=== PATIENT | male | born 1960 | race Caucasian/White ===

== ENCOUNTER 2016-08-23 12:09 | Day surgery (SDC) | payer MEDICAID ==
[~2016-08-23] VITALS: Ht 190.5 cm; Wt 163.3 kg
--- NOTE | ~2016-08-23 | OP ---
PATIENT NAME: SAMANTHA PAN MEDICAL RECORD: [id number] :56 LOCATION:D.OPS ADMISSION DATE: SURGEON: BETTE NÚÑEZ DO OPERATION DATE: 08/23/16 PROCEDURE: Colonoscopy with polypectomy. INDICATIONS FOR PROCEDURE: Diarrhea and diverticular disease. SCOPE: Olympus video pediatric colonoscope. MEDICATIONS: Propofol 350 milligrams IV per anesthesia. WITHDRAWAL TIME: 15 minutes. ESTIMATED BLOOD LOSS: Minimal. COMPLICATIONS: None. FINDINGS: Informed consent was given. The patient was made comfortable with the above medication. After reaching an adequate level of sedation by slow IV push, the patient was placed on his left side. A digital rectal examination was performed and was normal. The endoscope was then advanced under direct visualization through the rectum to the terminal ileum. The scope was slowly withdrawn, and the mucosa was carefully examined. There was evidence of mild diverticulosis involving the sigmoid colon with a few small mouth diverticula. There were three separate polyps. The first was located in the transverse colon. It measured approximately 5 millimeters in diameter and was benign appearing and sessile. It was removed with hot forceps in one piece and completely retrieved. The other two polyps were located in the descending colon. They measured approximately 5 millimeters in size. They were both benign appearing and sessile and were removed with hot forceps. Retroflexion was performed in the rectum with visualization of small, nonbleeding internal hemorrhoids. The endoscope was then withdrawn from the patient. The patient tolerated the procedure well, and there were no complications. IMPRESSIONS: 1. Three polyps as described above, all removed using hot forceps. 2. Small nonbleeding internal hemorrhoids. 3. Mild diverticulosis of the sigmoid colon. PLAN/RECOMMENDATIONS: 1. Discharge home when recovery parameters are met. 2. High fiber diet. 3. Continue current medications. 4. Recall colonoscopy in five years. 5. Follow up in gastroenterology clinic as needed. In reviewing the notes, it appears that the patient was evaluated in the gastroenterology clinic for diarrhea. He states this has resolved. If this should return he should let the office know so further workup can be made. OPERATIVE REPORT [id number] SAMANTHA PANBETTE MADDOX DO CC: [id number] DICTATION DATE: 08/23/16 1500 ENTRY ANALYST: DM 08/24/16 1223 [facility] SDC 08/23/16 [facility] [address] [place] [address]
[2016-08-23] MEDS ORDERED: PRINIVIL20 MG PO (12:41)
[2016-08-23] MEDS ORDERED: GLYBURIDE2.5 MG PO (12:42)
[2016-08-23] MEDS ORDERED: ZOCOR40 MG PO (12:42)
[2016-08-23] MEDS ORDERED: GLUCOPHAGE500 MG PO (12:42)
[2016-08-23] MEDS ORDERED: FENOFIBRATE160 MG PO (12:43)
[2016-08-23] MEDS ORDERED: LEXAPRO20 MG PO (12:44)
[2016-08-23] MEDS ORDERED: AMOXICILLIN500 M1 (12:45)
[2016-08-23] MEDS ORDERED: BIAXIN 500 MG500 MG PO (12:45)
[2016-08-23] MEDS ORDERED: PANTOPRAZOLE SOD DR (12:46)
[2016-08-23] MEDS ORDERED: SAW PALMETTO450 MG PO (12:47)
[2016-08-23 13:02] VITALS: BP 194/113; Ht 190.5 cm; Wt 163.3 kg
[2016-08-23 13:14] LABS: BASOPHILS 0.3 % (0-2); EOSINOPHILS 0.6 % (0-7); HEMOGLOBIN 13.7 g/dL (13.5-17.5); IMMATURE GRANULOCYTES 0.8 % (0-5); LYMPHOCYTES 22.2 % (15-50); MCH 29.8 pg (26.0-34.0); MCHC 32.6 g/dL (31.0-37.0); MCV 91.5 fL (80.0-100.0); MEAN PLATELET VOLUME 10.6 fL (7.4-10.4); MONOCYTES 6.7 % (2-11); NEUTROPHILS 69.4 % (40-80); PLATELET COUNT 236 10x3/uL (130-400); RBC 4.59 10x6/uL (4.20-6.10); RDW 13.9 % (11.5-14.5); WBC 7.7 10x3/uL (4.8-10.8)
[2016-08-23 13:30] LABS: CALC OSMOLALITY 282 mosm/kg (275-300); CARBON DIOXIDE 28.3 mmol/L (21.0-32.0); CHLORIDE - SERUM 103 mmol/L (98-107); CREATININE - SERUM 0.8 mg/dL (0.6-1.3); GLUCOSE 134 mg/dL (74-106); POTASSIUM - SERUM 3.9 mmol/L (3.5-5.1); SODIUM 141 mmol/L (136-145); UREA NITROGEN 12 mg/dL (7-18); eGFR NON AFRICAN AMERICAN > 90 mL/min (90-120)
--- NOTE | 2016-08-23 15:56 | NUR ---
1545 DISCHARGE INSTRUCTIONS COMPLETE. ESCORTED OUT BY MYSELF.
== END 2016-08-23 15:45 | disposition home or self-care (01) ==
LOC: D.OPS 12:09
PROVIDERS: Anesthesiology
DX: D12.3 Benign neoplasm of transverse colon (principal); D12.4 Benign neoplasm of descending colon; K64.8 Other hemorrhoids; K57.30 Diverticulosis of large intestine without perforation or abscess without bleeding; Z01.812 Encounter for preprocedural laboratory examination

== ENCOUNTER 2016-09-04 10:15 | Day surgery (SDC) | payer MEDICAID ==
[~2016-09-04] VITALS: Ht 190.5 cm; Wt 159.1 kg
--- NOTE | ~2016-09-04 | OP ---
PATIENT NAME: SAMANTHA PAN JR MEDICAL RECORD: [id number] :56 LOCATION:GEROGE ADMISSION DATE: SURGEON: BETTE NÚÑEZ DO DATE OF OPERATION: 09/04/2016 PROCEDURE: EGD with biopsies. INDICATIONS FOR PROCEDURE: Epigastric abdominal pain, heartburn, nausea. SCOPE: Olympus video gastroscope. MEDICATIONS: Propofol 240 mg IV per anesthesia. ESTIMATED BLOOD LOSS: Minimal. COMPLICATIONS: None. FINDINGS: Informed consent was given. The patient was made comfortable with the above medication. After reaching an adequate level of sedation by slow IV push, the patient was placed on his left side. The endoscope was then advanced under direct visualization through the mouth to the second portion of the duodenum. The upper, middle, and lower thirds of the esophagus appeared normal. At the GE junction, there was mild evidence of LA class A reflux induced esophagitis and possible Alicea's esophagus. Biopsies were taken of this site to rule out Alicea's. The span of possible Alicea's is within 1 cm, making a short segment if this is positive. The endoscope was advanced beyond the GE junction into the stomach and retroflexed to view the cardia, where a small sliding hiatal hernia was present. The fundus and body of the stomach appeared normal. In the antrum, there was some erythema and granularity consistent with possible gastritis. Random biopsies were taken to submit for histology and to rule out H. pylori. The endoscope was advanced beyond the pylorus into the duodenum where the bulb and second portion of the duodenum appeared normal. The endoscope was then withdrawn from the patient. The patient tolerated the procedure well and there were no complications. IMPRESSION: 1. LA class A reflux-induced esophagitis. 2. 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 3. Small sliding hiatal hernia. 4. Erythema and granularity of the stomach consistent with possible gastritis, biopsies taken. PLAN AND RECOMMENDATIONS: 1. Discharge home when recovery parameters are met. 2. Follow up biopsy specimen results. 3. GERD diet and reflux precautions. 4. Continue current medications. 5. Trial of traw-nub-sotydyo Nexium 20 mg daily. 6. Follow up in GI clinic as needed. If biopsies do confirm that he has Alicea's esophagus. He will need to be on a PPI indefinitely with a recall upper endoscopy in 2 years' time. TRANSINT:[id number] Voice Confirmation ID: [id number] DOCUMENT ID: [id number] OPERATIVE REPORT [id number] SAMANTHA PAN JR, NATHAN A DO CC: [id number] DICTATION DATE: 09/04/161415 ENGINEER REMOTE CONTROL DIESEL: 09/04/16 2257 [facility] 09/04/16 [place] [id number] [place] [id number]
[~2016-09-04 10:15] MED LIST: AMOXICILLIN500 M1; BIAXIN 500 MG500 MG PO; FENOFIBRATE160 MG PO; GLUCOPHAGE500 MG PO; GLYBURIDE2.5 MG PO; LEXAPRO20 MG PO; PANTOPRAZOLE SOD DR; PRINIVIL20 MG PO; SAW PALMETTO450 MG PO; ZOCOR40 MG PO
[2016-09-04] MEDS ORDERED: COREG 3.1253.125 MG PO (12:09)
[2016-09-04 12:14] VITALS: BP 158/89; Ht 190.5 cm; Wt 159.1 kg
[2016-09-04 12:57] LABS: HEMATOCRIT 41.6 % (42.0-54.0); HEMOGLOBIN 13.5 g/dL (13.5-17.5); MCH 29.7 pg (26.0-34.0); MCHC 32.5 g/dL (31.0-37.0); MCV 91.4 fL (80.0-100.0); MEAN PLATELET VOLUME 10.7 fL (7.4-10.4); RBC 4.55 10x6/uL (4.20-6.10); RDW 13.7 % (11.5-14.5); WBC 7.8 10x3/uL (4.8-10.8)
[2016-09-04 13:07] LABS: CALC OSMOLALITY 285 mosm/kg (275-300); CALCIUM 8.6 mg/dL (8.5-10.1); CARBON DIOXIDE 31.7 mmol/L (21.0-32.0); CHLORIDE - SERUM 104 mmol/L (98-107); CREATININE - SERUM 0.8 mg/dL (0.6-1.3); GLUCOSE 117 mg/dL (74-106); POTASSIUM - SERUM 4.4 mmol/L (3.5-5.1); SODIUM 142 mmol/L (136-145); UREA NITROGEN 17 mg/dL (7-18); eGFR NON AFRICAN AMERICAN > 90 mL/min (90-120)
== END 2016-09-04 16:54 | disposition home or self-care (01) ==
LOC: D.OPS 10:15
PROVIDERS: Anesthesiology
DX: R10.13 Epigastric pain (principal); K21.0 Gastro-esophageal reflux disease with esophagitis; K44.9 Diaphragmatic hernia without obstruction or gangrene; J44.9 Chronic obstructive pulmonary disease, unspecified; G47.30 Sleep apnea, unspecified; I10 Essential (primary) hypertension; E11.9 Type 2 diabetes mellitus without complications; Z01.812 Encounter for preprocedural laboratory examination; E66.01 Morbid (severe) obesity due to excess calories; Z68.41 Body mass index [BMI] 40.0-44.9, adult

== ENCOUNTER → 2017-05-08 11:01 | Outpatient (CLI) | payer MEDICAID ==
[2016-09-04 12:14] VITALS: BMI 43.8
[~2017-05-08 11:01] MED LIST changes: +COREG 3.1253.125 MG PO
== END | disposition home or self-care (01) ==
LOC: D.CATH 04-30 13:00
DX: I48.91 Unspecified atrial fibrillation (principal); Z01.812 Encounter for preprocedural laboratory examination

== ENCOUNTER 2018-04-05 20:58 | Inpatient (IN) | payer MEDICAID ==
[~2018-04-05] VITALS: Ht 190.5 cm; Wt 164.6 kg
[2018-04-05 21:28] LABS: BASOPHILS 0.2 % (0-2); EOSINOPHILS 1.3 % (0-7); HEMATOCRIT 45.4 % (42.0-54.0); HEMOGLOBIN 14.6 g/dL (13.5-17.5); IMMATURE GRANULOCYTES 0.4 % (0-5); LYMPHOCYTES 19.2 % (15-50); MCH 29.4 pg (26.0-34.0); MCHC 32.2 g/dL (31.0-37.0); MCV 91.5 fL (80.0-100.0); MEAN PLATELET VOLUME 10.7 fL (7.4-10.4); MONOCYTES 7.8 % (2-11); NEUTROPHILS 71.1 % (40-80); PLATELET COUNT 254 10x3/uL (130-400); RBC 4.96 10x6/uL (4.20-6.10); WBC 15.2 10x3/uL (4.8-10.8)
[2018-04-05 21:29] LABS: COLOR YELLOW (YELLOW)
[2018-04-05 21:30] LABS: APPEARANCE CLEAR (CLEAR); BILIRUBIN NEGATIVE (NEGATIVE); GLUCOSE NEGATIVE (NEGATIVE); KETONE NEGATIVE (NEGATIVE); NITRITE NEGATIVE (NEGATIVE); PROTEIN 2+ mg/dL (NEGATIVE); SPECIFIC GRAVITY 1.015 (1.005-1.020); UROBILINOGEN NORMAL (NORMAL)
[2018-04-05 21:32] LABS: BACTERIA FEW /hpf (NONE SEEN); EPITHELIAL CELLS 0-5 /hpf (0-5); MUCUS >1+ /lpf (NONE SEEN); RED CELLS - URINE 0-5 /hpf (0-5); WHITE CELLS - URINE 0-5 /hpf (0-5)
[2018-04-05 21:40] LABS: ALBUMIN 3.6 g/dL (3.4-5.0); ALKALINE PHOSPHATASE 93 U/L (46-116); ALT (SGPT) 25 U/L (10-68); CALC OSMOLALITY 288 mosm/kg (275-300); CALCIUM 9.1 mg/dL (8.5-10.1); CARBON DIOXIDE 31.2 mmol/L (21.0-32.0); CHLORIDE - SERUM 104 mmol/L (98-107); CREATININE - SERUM 0.8 mg/dL (0.6-1.3); GLUCOSE 118 mg/dL (74-106); POTASSIUM - SERUM 4.3 mmol/L (3.5-5.1); PROTEIN - SERUM 7.6 g/dL (6.4-8.2); SODIUM 144 mmol/L (136-145); UREA NITROGEN 16 mg/dL (7-18); eGFR NON AFRICAN AMERICAN > 90 mL/min (90-120)
[2018-04-05 21:43] LABS: AMYLASE - SERUM 35 U/L (25-115); LIPASE 182 U/L (73-393); TROPONIN-I < 0.017 ng/mL (0.000-0.060)
--- NOTE | 2018-04-05 22:25 | NUR ---
PT RETURNED FROM CT ACTIVELY VOMITING. NOTIFIED EDP PHILLY AND REEQUESTED MORE ANTI-EMETIC. VERBAL ORDER FOR 10MG COMPAZINE GIVEN
--- NOTE | 2018-04-05 22:47 | NUR ---
PT STATES HE IS NO LONGER NAUSEATED. DENIES ANY FURTHER NEEDS AT PRESENT
[2018-04-06] VITALS: BP 156/81
[2018-04-06 01:40] VITALS: BP 154/113; BMI 45.4
--- NOTE | 2018-04-06 01:47 | NUR ---
REPORT CALLED TO THIS NURSE BY CA IN ER AT 0010. ARRIVED TO FLOOR AT 0023 IN W/C. ASSESMENT COMPLETED. DENIES ANY PAIN OR NEEDS. TELEMETRY IN PLACE. IV TO RIGHT AND LEFT AC. DENIES ANY NEEDS AT THIS TIME.
--- NOTE | 2018-04-06 05:24 | NUR ---
PT BECAME DIAPHORETIC AND NAUSEATED. ZOFRAN GIVEN. CALLED DR. JORDAN AND EXPLAINED THIS PT HAD COME IN WITH A-FIB WITH RVR. CAME OUT OF RVR AND IS NOW A-FLUTTER, NAUSEATED AND DIAPHORETIC. ASKED WHAT HR WAS AND THEN SAID NO CONSULT. PT STATES HE HAS A METAL PLATE IN HIS HEAD AND SOMETIMES IT CAN MAKE HIM SICK. WILL CONT TO OBSERVED. REMAINS ON TELEMETRY. ALSO HAS LARGE HERNIA ABOVE HIS UMBILICAL AREA.
[2018-04-06 05:34] LABS: BASOPHILS 0.2 % (0-2); EOSINOPHILS 1.1 % (0-7); HEMATOCRIT 43.5 % (42.0-54.0); HEMOGLOBIN 13.9 g/dL (13.5-17.5); IMMATURE GRANULOCYTES 0.4 % (0-5); LYMPHOCYTES 16.8 % (15-50); MCV 90.8 fL (80.0-100.0); MEAN PLATELET VOLUME 10.5 fL (7.4-10.4); MONOCYTES 7.3 % (2-11); NEUTROPHILS 74.2 % (40-80); PLATELET COUNT 222 10x3/uL (130-400); RBC 4.79 10x6/uL (4.20-6.10); WBC 12.9 10x3/uL (4.8-10.8)
[2018-04-06 05:59] LABS: ALBUMIN 3.3 g/dL (3.4-5.0); ALKALINE PHOSPHATASE 90 U/L (46-116); BILIRUBIN - TOTAL 0.86 mg/dL (0.2-1.3); CALCIUM 8.6 mg/dL (8.5-10.1); CARBON DIOXIDE 27.7 mmol/L (21.0-32.0); CHLORIDE - SERUM 103 mmol/L (98-107); CREATININE - SERUM 0.7 mg/dL (0.6-1.3); POTASSIUM - SERUM 3.8 mmol/L (3.5-5.1); PROTEIN - SERUM 6.9 g/dL (6.4-8.2); SODIUM 140 mmol/L (136-145); UREA NITROGEN 13 mg/dL (7-18); eGFR NON AFRICAN AMERICAN > 90 mL/min (90-120)
[2018-04-06 06:08] LABS: ALT (SGPT) 15 U/L (10-68); CALC OSMOLALITY 283 mosm/kg (275-300); GLUCOSE 190 mg/dL (74-106)
--- NOTE | 2018-04-06 07:10 | NUR ---
REPORT RECIEVED FROM BULB PLANTER. PATIENT LAYING IN BED AWAKE ALERT AND ORIENTED X 4. PATIENT IS STABLE AND VS ARE GOOD. PATIENT DENIES ANY NEEDS OR PAIN. WILL CONTINUE WITH PLAN OF CARE.
[2018-04-06 08:35] VITALS: BP 154/98
--- NOTE | 2018-04-06 10:07 | NUR ---
PATIENT SITTING UP WATCHING TV. PATIENT IS NPO AWAITNG CONSULT. ASSESSMENT COMPLETED. WILL CONTINUE TO MONITOR.
--- NOTE | 2018-04-06 11:00 | NUR ---
PATIENT SEEN BY DR FRANCISCO AND DR BAINS. NEW ORDERS RECEIVED. PATIENT IS STABLE AND VSS. WILL CONTINUE TO MONIOTR.
[2018-04-06 11:54] VITALS: BP 162/95
[2018-04-06 12:17] VITALS: BMI 45.3
[2018-04-06 12:48] VITALS: Ht 190.5 cm; Wt 164.6 kg
[2018-04-06 16:46] VITALS: BP 187/103
[2018-04-06] MEDS ORDERED: CARDIZEM CD180 MG PO (18:10)
--- NOTE | 2018-04-08 09:46 | MORECARE ---
CASE MANAGEMENT DISCHARGE SUMMARY PATIENT: SAMANTHA PAN JR UNIT: [id number] ADM DATE: 04/05/18 AGE: 58 : 56 SEX: M ROOM/BED: D.2119 AUTHOR: DIAZ GRANGER PHYSICIAN: REFERRING PHYSICIAN: HARVEY JORDAN MD DATE OF SERVICE: 04/08/18 Discharge Plan Patient Name: [facility]ANTHA PAN [facility] : 1960 Planned Disposition: Home Anticipated Discharge Date: 04/06/18 Discharge Date: 04/06/2018 Expected LOS: 1 Initial Reviewer: [email or web address] Initial Review Date: 04/08/2018 Generated: 04/08/18 10:46 am Patient Name: SAMANTHA PAN Page 22019 at 0946 All edits/amendments must be made on the electronic document DICTATION DATE: 04/08/18944 ENGINEERING TECHNOLOGIST: DM 04/08/18944 RPT#: [id number] DC DATE:04/06/18 STATUS: DIS IN [facility] [address] [place] [address] END OF REPORT
== END 2018-04-06 19:06 | disposition home or self-care (01) | DRG 394 ==
LOC: D.ER 20:58 → D.EDHOLD 23:39 → D.M2 23:39
PROVIDERS: Family Medicine; ADMIT Internal Medicine Nephrology; ATTEND Internal Medicine Nephrology
DX: K43.9 Ventral hernia without obstruction or gangrene (principal); F17.213 Nicotine dependence, cigarettes, with withdrawal; Z68.42 Body mass index [BMI] 45.0-49.9, adult; I48.91 Unspecified atrial fibrillation; I10 Essential (primary) hypertension; E78.5 Hyperlipidemia, unspecified; E11.9 Type 2 diabetes mellitus without complications; G47.33 Obstructive sleep apnea (adult) (pediatric); N40.0 Benign prostatic hyperplasia without lower urinary tract symptoms; E66.01 Morbid (severe) obesity due to excess calories

== ENCOUNTER 2018-07-11 07:38 | Day surgery (SDC) | payer MEDICAID ==
[~2018-07-11] VITALS: Ht 190.5 cm; Wt 163.3 kg
[~2018-07-11 07:38] MED LIST changes: +BETAPACE 120 M120 MG PO; +CARDIZEM CD180 MG PO; +METOPROLOL TART25 MG PO; +XARELTO20 MG PO
[2018-07-11 08:10] LABS: BASOPHILS 0.2 % (0-2); EOSINOPHILS 1.1 % (0-7); HEMATOCRIT 40.5 % (42.0-54.0); HEMOGLOBIN 13.1 g/dL (13.5-17.5); IMMATURE GRANULOCYTES 0.8 % (0-5); LYMPHOCYTES 20.2 % (15-50); MCH 29.5 pg (26.0-34.0); MCHC 32.3 g/dL (31.0-37.0); MCV 91.2 fL (80.0-100.0); MEAN PLATELET VOLUME 10.1 fL (7.4-10.4); NEUTROPHILS 71.7 % (40-80); PLATELET COUNT 211 10x3/uL (130-400); RBC 4.44 10x6/uL (4.20-6.10); RDW 14.5 % (11.5-14.5); WBC 8.5 10x3/uL (4.8-10.8)
[2018-07-11 08:20] LABS: CALC OSMOLALITY 294 mosm/kg (275-300); CALCIUM 9.4 mg/dL (8.5-10.1); CARBON DIOXIDE 31.8 mmol/L (21.0-32.0); CHLORIDE - SERUM 104 mmol/L (98-107); CREATININE - SERUM 0.9 mg/dL (0.6-1.3); GLUCOSE 201 mg/dL (74-106); POTASSIUM - SERUM 4.3 mmol/L (3.5-5.1); SODIUM 143 mmol/L (136-145); UREA NITROGEN 23 mg/dL (7-18); eGFR NON AFRICAN AMERICAN > 90 mL/min (90-120)
[2018-07-11 09:07] VITALS: BP 147/100; BMI 45.0
[2018-07-11] MEDS ORDERED: HYDROCODON-ACE1 EA10 PO (11:37)
[2018-07-11] MEDS ORDERED: CYCLOBENZAPRINE10 MG PO (11:38)
[2018-07-11 21:16] VITALS: BP 169/95
[2018-07-11 22:12] VITALS: BP 169/95; BMI 45.0
[2018-07-12 00:26] VITALS: BP 174/84
--- NOTE | 2018-07-12 01:30 | NUR ---
RESTING IN BED UP AT [facility] CALL LIGHT IN REACH NO NEEDS NOTED OR STATED.
[2018-07-12 05:12] VITALS: BP 151/100
--- NOTE | 2018-07-12 08:10 | NUR ---
1150 REVEIVED FROM PACU WITH VSS. DROWSY. 1230 C/O NAUSEA. ON TOILET. UNABLE TO VOID.
--- NOTE | 2018-07-12 08:12 | NUR ---
1900 PT TRANSFERRED TO 2201 IN STABLE CONDITION. ADMITTED FOR OBSERVATION DUE TO NAUSEA, PAIN, AND NO CAREGIVER AT HOME.
[2018-07-12 08:58] VITALS: BP 180/21
--- NOTE | 2018-07-12 10:09 | OP ---
PATIENT NAME: SAMANTHA PAN JR MEDICAL RECORD: [id number] :56 LOCATION:D.MS [id number] ADMISSION DATE: SURGEON: GEETHA FRANCISCO MD DATE OF OPERATION: 07/11/2018 PREOPERATIVE DIAGNOSES: 1. Ventral hernia. 2. Atrial fibrillation. 3. Hypertension. 4. Diabetes mellitus. 5. Morbid obesity with a BMI of 45. POSTOPERATIVE DIAGNOSES: 1. Ventral hernia. 2. Atrial fibrillation. 3. Hypertension. 4. Diabetes mellitus. 5. Morbid obesity with a BMI of 45. PROCEDURE: Ventral hernia repair with 8 cm Ventralex mesh. SURGEON: Geetha Francisco MD REPORT OF PROCEDURE: The patient's abdomen was prepped and draped in sterile fashion. A midline incision was made just above the umbilicus overlying the hernia defect. Electrocautery was used to dissect through the subcutaneous tissues. We entered the hernia sac and found omental tissue present. This omentum was adherent to the side owen. We performed a tedious dissection of the omentum out of the hernia sac and eventually just ligated the omentum and tied it off with 2-0 silks. Once we did this, I got it freed up from the hernia sac and then the hernia sac was excised and taken down to the fascial edges. The fascial defect was noted to be about 5 cm in greatest diameter. We freed the fatty tissue off of the fascia anteriorly and then bluntly took down the preperitoneal fatty tissue off of the posterior aspect of the abdominal wall. The patient had a small umbilical hernia present as well that was less than a centimeter in size. We placed an 8 cm Ventralex mesh in an underlay fashion and sutured this down on all 4 sides using multiple interrupted 0 Prolene. We attempted to make sure that the umbilical hernia defect was covered with the mesh as well. We then irrigated out the wound thoroughly with normal saline. The fascia was then closed transversely with running #1 PDS times 2. The wound was inspected and there was no sign of any active bleeding. At this point, the subcutaneous tissues were all reapproximated with multiple interrupted 3-0 Vicryl and the skin was closed with running subcutaneous 5-0 Monocryl. A 10 mL of 0.25% Marcaine with epinephrine were infused into the surrounding tissues and the wounds were dressed appropriately. COMPLICATIONS: None. CONDITION: Stable. ANESTHESIA: General endotracheal and local. BLOOD LOSS: 100 mL. TRANSINT:[id number] Voice Confirmation ID: [id number] DOCUMENT ID: [id number] OPERATIVE REPORT [id number] SAMANTHA PAN JR, CHRISTIAN MD at 1009 CC: YVETTE JEONG MD [id number] DICTATION DATE: 07/11/18 1148 LEAD QUALITY TECHNICIAN: 07/11/18 1440 [place] [id number] [place] [id number]
[2018-07-12 12:52] VITALS: Ht 190.5 cm; Wt 163.3 kg
--- NOTE | 2018-07-12 12:56 | NUR ---
IV REMOVED WITH NO REDNESS OR EDEMA AT SITE. DRESSING TO ABD CHANGED WITH EXTRA DRESSINGS SENT WITH PATIENTS. DISCHARGE INSTRUCTIONS GIVEN TO PATIENT ALONG WITH PRESCRIPTION FOR [place], PATIENT VOICED UNDERSTANDING OF DISCHARGE INSTRUCTIONS. CL IN REACH
== END 2018-07-12 13:03 | disposition home or self-care (01) ==
LOC: D.OPS 07:38 → D.PAN 12:30 → D.MS 18:53 → D.OPS 07-12 13:03
PROVIDERS: ATTEND Surgery
DX: K43.9 Ventral hernia without obstruction or gangrene (principal); I48.91 Unspecified atrial fibrillation; I10 Essential (primary) hypertension; E11.9 Type 2 diabetes mellitus without complications; E66.01 Morbid (severe) obesity due to excess calories

== ENCOUNTER 2019-02-24 11:13 | Inpatient (IN) | payer MEDICAID ==
[2019-02-24] VITALS (13 sets, daily range): BP systolic 98–187; BP diastolic 54–92; BMI 50.7
[~2019-02-24] VITALS: Ht 190.5 cm; Wt 178.8 kg
--- NOTE | ~2019-02-24 | EC ---
PATIENT:SAMANTHA PAN JR DATE OF SERVICE: 02/24/19 SEX: M MEDICAL RECORD: [id number] DATE OF : 56 LOCATION:D.MS [facility]222 AGE OF PATIENT: 58 ADMISSION DATE: 02/24/19 REFERRING PHYSICIAN: INTERPRETING PHYSICIAN: RAPHAEL ALDRICH MD ECHOCARDIOGRAM REPORT ECHO CHARGES 4 ECHO COMPLETE Date: 03/07/19 CLINICAL DIAGNOSIS: LVF ECHOCARDIOGRAPHIC MEASUREMENTS (adult normal given) AC root (d.<3.7cm) 3.2 cm LV Septum d (<1.2 cm> 1.6 cm Valve Excursion 2.2 cm LV Septum (systole) 1.8 cm Left Atria (s.<4.0cm> 4.3 cm LVPW d(<1.2cm) 1.1 cm RV (d.<2.3cm) 4.4 cm LVPW (sytole) 1.2 cm LV diastole(<5.6CM) 4.5 cm MV E-F(>70mm/sec) cm LV systole 3.3 cm LVOT Diameter 2.3 cm MV exc.(>10mm) cm Est.ejection fraction (50-75%) % DOPPLER: LVIT cm/sec A 36 cm/sec E 50 cm/sec LA cm/sec RVSP 23.2 mmHg LVOT 100 cm/sec AOP1/2T m/s Asc. Ao 118 cm/sec RVOT 91 cm/sec RA cm/sec PA 78 cm/sec AV Gradient Peak 5.6 mmHg AV Mean 3.2 mmHg AV Area 3.6 cm MV Gradient Peak 2.5 mmHg MV Mean 1.1 mmHg MV Area cm COMMENTS: Stock Selector: Pedro [facility] Preform Plate Maker: 1 Dr. Aldrich TAPE# PACS Pericardial Effusion N DATE OF SERVICE: 03/08/2019 FINDINGS: 1. Left ventricular chamber size is within normal limits. Left ventricular systolic function is normal. Overall ejection fraction estimated at 55% to 60%. 2. Left atrium is enlarged at 4.3 cm. Right atrium and right ventricular chamber sizes are mildly dilated. 3. Valvular structures have normal structure and motion. 4. Doppler interrogation reveals only trace tricuspid regurgitation, no other valvular insufficiency or stenosis. Pulmonary systolic pressure estimated at 25 ECHOCARDIOGRAM REPORT [id number] SAMANTHA PAN JR mmHg. 5. No evidence of pericardial effusion or left ventricular thrombus. TRANSINT:[id number] Voice Confirmation ID: [id number] DOCUMENT ID: [id number] RAPHAEL ALDRICH MD CC: [id number] DICTATION DATE: 03/09/19 1203 AUTOMATIC GRINDER OPERATOR: 03/09/19 1722 DIS IN 03/08/19 [facility] [address] [place] [id number]
[~2019-02-24 11:13] MED LIST changes: +CYCLOBENZAPRINE10 MG PO; +HYDROCODON-ACE1 EA10 PO
[2019-02-24 11:38] LABS: CALC OSMOLALITY 298 mosm/kg (275-300); CALCIUM 8.7 mg/dL (8.5-10.1); CARBON DIOXIDE 39.8 mmol/L (21.0-32.0); CHLORIDE - SERUM 103 mmol/L (98-107); CREATININE - SERUM 0.9 mg/dL (0.6-1.3); POTASSIUM - SERUM 4.9 mmol/L (3.5-5.1); SODIUM 142 mmol/L (136-145); UREA NITROGEN 28 mg/dL (7-18); eGFR NON AFRICAN AMERICAN > 90 mL/min (90-120)
[2019-02-24 11:39] LABS: GLUCOSE 272 mg/dL (74-106)
[2019-02-24 11:41] LABS: BASOPHILS 0.2 % (0-2); EOSINOPHILS 0.5 % (0-7); HEMATOCRIT 45.8 % (42.0-54.0); HEMOGLOBIN 13.8 g/dL (13.5-17.5); IMMATURE GRANULOCYTES 0.9 % (0-5); MCH 29.2 pg (26.0-34.0); MCHC 30.1 g/dL (31.0-37.0); MEAN PLATELET VOLUME 10.5 fL (7.4-10.4); MONOCYTES 4.9 % (2-11); NEUTROPHILS 80.5 % (40-80); RBC 4.72 10x6/uL (4.20-6.10); RDW 14.7 % (11.5-14.5); WBC 17.2 10x3/uL (4.8-10.8)
[2019-02-24 11:43] LABS: PLATELET COUNT 296 10x3/uL (130-400)
[2019-02-24 11:46] LABS: APTT 25.8 SECONDS (22.8-39.4); INR 1.04 (0.85-1.17); PROTIME 13.5 SECONDS (11.6-15.0)
[2019-02-24 11:56] LABS: ALBUMIN 3.2 g/dL (3.4-5.0); ALKALINE PHOSPHATASE 92 U/L (46-116); ALT (SGPT) 44 U/L (10-68); BILIRUBIN - TOTAL 0.31 mg/dL (0.2-1.3); CKMB 3.1 U/L (0.0-3.6); CREATINE KINASE 54 UL (21-232); PRO BNP 457 pg/mL (0-125); PROTEIN - SERUM 7.5 g/dL (6.4-8.2)
[2019-02-24 11:59] LABS: TROPONIN-I < 0.017 ng/mL (0.000-0.060)
--- NOTE | 2019-02-24 12:00 | NUR ---
PATIENT IS VERY ANXIOUS, IS WANTING TO GET UP, STATES "I NEED TO GO PEE". CONSISTANTLY ENCOURAGING HIM TO STAY IN THE BED, NOT ABLE TO LEAVE PATIENT, MD NOTIFIED, NEW ORDER GIVEN.
--- NOTE | 2019-02-24 12:30 | NUR ---
FRIEND TO BEDSIDE, PATIENT RESTING QUIETLY AT THIS TIME.
--- NOTE | 2019-02-24 12:47 | NUR ---
PERSONAL BELONGINGS GIVEN TO SARAHY NAYLOR HIS FRIEND
--- NOTE | 2019-02-24 13:57 | NUR ---
PATIENT ON BIPAP, RESTING QUIETLY AT THIS TIME.
--- NOTE | 2019-02-24 14:31 | MORECARE ---
CASE MANAGEMENT DISCHARGE SUMMARY PATIENT: SAMANTHA PAN JR UNIT: [id number] ADM DATE: 02/24/19 AGE: 58 : 56 SEX: M ROOM/BED: D.2305 AUTHOR: DIAZ GRANGER PHYSICIAN: REFERRING PHYSICIAN: CHENTE CADENA DO DATE OF SERVICE: 02/24/19 Discharge Plan Patient Name: SAMANTHA PAN [facility] [facility] 1960 Planned Disposition: Home Health Service Anticipated Discharge Date: 02/27/19 Discharge Date: Expected LOS: 3 Initial Reviewer: [email or web address] Initial Review Date: 02/24/2019 Generated: 02/24/19 3:30 pm DCPIA - Discharge Planning Initial Assessment Updated by [email or web address]: Geovanna Goldberg on 02/24/19 2:30 pm * Is the patient Alert and Oriented? No * How many steps to enter\exit or inside your home? elevator * PCP Dr. Urbina * Pharmacy [facility] on [address] * Preadmission Environment Home Alone * ADLs Independent * Equipment Cane CPAP Rolling Walker Wheelchair * List name and contact numbers for known caregivers / representatives who currently or will assist patient after discharge: Watson Wilner - [place] - [phone] * Verbal permission to speak to the caregivers and representatives has been obtained from the patient. Yes * Community resources currently utilized Other * Please name any agencies selected above. has a house keeper that was coming 4 x week that gets his groceries for him. * Additional services required to return to the preadmission environment? Yes * Can the patient safely return to the preadmission environment? Yes * Has this patient been hospitalized within the prior 30 days at any hospital? No Patient Name: SAMANTHA PAN Page 13674 at 1431 All edits/amendments must be made on the electronic document DICTATION DATE: 02/24/19 143 TANK OFFICER: GILMA 02/24/19 1430 RPT#: [id number] DC DATE: STATUS: ADM IN [facility] [address] [place] [address] END OF REPORT
--- NOTE | 2019-02-24 14:39 | NUR ---
PT RECEIVED FROM ER. VSS. PLACED ON BIPAP RT AT BEDSIDE WILL CONTINUE TO MONITOR
--- NOTE | 2019-02-24 14:39 | MORECARE ---
CASE MANAGEMENT DISCHARGE SUMMARY PATIENT: SAMANTHA PAN JR UNIT: [id number] ADM DATE: 02/24/19 AGE: 58 : 56 SEX: M ROOM/BED: D.2305 AUTHOR: ELKIN,DOC PHYSICIAN: REFERRING PHYSICIAN: CHENTE CADENA DO DATE OF SERVICE: 02/24/19 Discharge Plan Patient Name: SAMANTHA PAN Facility[facility]:[place] : 1960 Planned Disposition: Home Health Service Anticipated Discharge Date: 02/27/19 Discharge Date: Expected LOS: 3 Initial Reviewer: [email or web address] Initial Review Date: 02/24/2019 Generated: 02/24/19 3:38 pm DCP- Discharge Planning Updated by [email or web address]: Geovanna Goldberg on 02/24/19 1:[address] DC PLAN: Rehab vs home health ANTICIPATED DC NEEDS: may need rehab or hh according to Watson (Friend) CM met with patient to complete initial dc planning assessment. He was on CPAP and confused, unable to answer questions at this time. CM contacted contact on facesheet Watson Darby, , who gave consent to complete assessment. CM verified patient's address, phone number, and emergency contact phone numbers. Patient lives at [facility] alone, and has been doing well on his own unitl the past few days. He lives alone. He does have a house keeper that was coming 4x week to assist with grocery shopping and house cleaning. Watson is not sure she still comes 4x week. Watson reports the patient has become increasingly weak and requiring more assistance. Watson drove him to his doctors appointment today in [place] and his PCP called an ambulance to bring him to the ER. CM discussed availability of home health, rehab services, and medical equipment. Watson feels that he will need assistance at dc rehab or home health. Patient unable at this time to sign SAMEER or even agree to assistance at dc. Transportation provider at discharge will be Watson if he is able to dc home. CM will continue to follow and will assist as needed with dc plans/needs. Geovanna Goldberg RN, [facility] DCPIA - Discharge Planning Initial Assessment Updated by [id number]: Geovanna Goldberg on 02/24/19 2:30 pm * Is the patient Alert and Oriented? No * How many steps to enter\exit or inside your home? elevator * PCP Dr. Urbina * Pharmacy [facility] on [address] * Preadmission Environment Home Alone * ADLs Independent * Equipment Cane CPAP Rolling Walker Wheelchair * List name and contact numbers for known caregivers / representatives who currently or will assist patient after discharge: Watson Darby - [place] - [phone] * Verbal permission to speak to the caregivers and representatives has been obtained from the patient. Yes * Community resources currently utilized Other * Please name any agencies selected above. has a house keeper that was coming 4 x week that gets his groceries for him. * Additional services required to return to the preadmission environment? Yes * Can the patient safely return to the preadmission environment? Yes * Has this patient been hospitalized within the prior 30 days at any hospital? No Last DP export: 02/24/19 1:31 p Patient Name: SAMANTHA PAN Page 68921 at 1439 All edits/amendments must be made on the electronic document DICTATION DATE: 02/24/191437 HOUSEHOLD APPLIANCE ASSEMBLER: GILMA 02/24/191437 RPT#: [id number] DC DATE: STATUS: ADM IN [facility] [address] [place] [address] END OF REPORT
[2019-02-24 17:02] LABS: CREATINE KINASE 64 UL (21-232)
[2019-02-24 17:07] LABS: TROPONIN-I < 0.017 ng/mL (0.000-0.060)
--- NOTE | 2019-02-24 19:00 | NUR ---
REPORT RECEIVED. PT LAYING IN BED, DISORIENTED TO PERSON, PLACE, TIME, SITUATION. PT RESPONDS TO DEEP STIMULI, NO ACUTE DISTRESS NOTED. PIV IN RT AND LT AC INFUSING, SEE IV FLOWSHEET. ASSESSMENT COMPLETED, SEE FLOWSHEET. PT ON BIPAP AT THIS TIME. NO VERBAL RESPONSE AT THIS TIME. WILL CONTINUE TO MONITOR.
--- NOTE | 2019-02-24 21:00 | NUR ---
PT RESTLESS, INCONSISTENTLY FOLLOWS COMMANDS. ATTEMPTED TO OPEN EYES WHEN AROUSED, NODS YES OR NO WHEN ASKED QUESTIONS. FULL LINEN CHANGE, CHG BATH GIVEN. WILL CONTINUE TO MONITOR.
--- NOTE | 2019-02-24 23:00 | NUR ---
PT RESTING IN BED, NO ACUTE DISTRESS NOTED AT THIS TIME.
[2019-02-24 23:29] LABS: CKMB 2.6 U/L (0.0-3.6); CREATINE KINASE 95 UL (21-232)
[2019-02-24 23:30] LABS: TROPONIN-I < 0.017 ng/mL (0.000-0.060)
[2019-02-25] VITALS (24 sets, daily range): BP systolic 104–174; BP diastolic 54–98; Ht 190.5 cm; Wt 178.8 kg
--- NOTE | 2019-02-25 01:00 | NUR ---
PT RESTING IN BED ON BIPAP. ABLE TO FOLLOW COMMANDS, AROUSES TO VERBAL STIMULI.
--- NOTE | 2019-02-25 03:00 | NUR ---
PT RESTING IN BED, NO ACUTE DISTRESS NOTED. ON BIPAP AT THE MOMENT.
--- NOTE | 2019-02-25 04:46 | NUR ---
JOSHUA PERDOMO NOTIFIED OF ABGS. NO ORDERS AT THIS TIME. CONT TO MONITOR
[2019-02-25 04:48] LABS: HEMATOCRIT 43.3 % (42.0-54.0); HEMOGLOBIN 12.8 g/dL (13.5-17.5); MCH 29.1 pg (26.0-34.0); MCHC 29.6 g/dL (31.0-37.0); MCV 98.4 fL (80.0-100.0); MEAN PLATELET VOLUME 10.7 fL (7.4-10.4); PLATELET COUNT 274 10x3/uL (130-400); RDW 14.5 % (11.5-14.5); WBC 15.1 10x3/uL (4.8-10.8)
--- NOTE | 2019-02-25 05:00 | NUR ---
PT RESPONDS TO VERBAL STIMULI AND FOLLOWS COMMANDS, HAS DIFFICULTY OPENING EYES. WILL CONTINUE TO MONITOR.
[2019-02-25 05:37] LABS: ALBUMIN 2.9 g/dL (3.4-5.0); ALKALINE PHOSPHATASE 87 U/L (46-116); ALT (SGPT) 49 U/L (10-68); BILIRUBIN - TOTAL 0.24 mg/dL (0.2-1.3); CALC OSMOLALITY 300 mosm/kg (275-300); CALCIUM 8.1 mg/dL (8.5-10.1); CHLORIDE - SERUM 105 mmol/L (98-107); CKMB 2.7 U/L (0.0-3.6); CREATINE KINASE 48 UL (21-232); CREATININE - SERUM 0.9 mg/dL (0.6-1.3); GLUCOSE 199 mg/dL (74-106); MAGNESIUM - SERUM 1.5 mg/dL (1.8-2.4); PHOSPHOROUS 5.9 mg/dL (2.5-4.9); POTASSIUM - SERUM 4.7 mmol/L (3.5-5.1); PRO BNP 570 pg/mL (0-125); PROTEIN - SERUM 6.5 g/dL (6.4-8.2); SODIUM 145 mmol/L (136-145); TROPONIN-I < 0.017 ng/mL (0.000-0.060); UREA NITROGEN 28 mg/dL (7-18); eGFR NON AFRICAN AMERICAN > 90 mL/min (90-120)
--- NOTE | 2019-02-25 07:00 | NUR ---
REPORT RECEIVED ASSESSMENT COMPLETE PER FLOW SHEET. VSS. NO NEW CHANGES WILL CONTINUE TO MONITOR
[2019-02-25 07:02] LABS: LYMPHOCYTES 10 % (15-50); MONOCYTES 1 % (2-11); NEUTROPHILS 88 % (40-80); PLATELET ESTIMATE NORMAL
--- NOTE | 2019-02-25 09:15 | NUR ---
PT UNABLE TO TAKE PO MEDS. UNABLE TO FOLLOW SIMPLE COMMANDS
--- NOTE | 2019-02-25 11:00 | NUR ---
REASSESSMENT COMPLETE PER FLOW SHEET. VSS. NO NEW CHANGES WILL CONTINUE TOMONITOR
--- NOTE | 2019-02-25 13:15 | NUR ---
FAMILY AT BEDSIDE GIVEN UPDATE
[2019-02-25 14:08] LABS: APPEARANCE HAZY (CLEAR); BILIRUBIN NEGATIVE (NEGATIVE); COLOR YELLOW (YELLOW); GLUCOSE NEGATIVE (NEGATIVE); KETONE NEGATIVE (NEGATIVE); NITRITE NEGATIVE (NEGATIVE); PROTEIN TRACE mg/dL (NEGATIVE); UROBILINOGEN NORMAL (NORMAL)
[2019-02-25 14:09] LABS: EPITHELIAL CELLS 0-5 /hpf (0-5); RED CELLS - URINE >50 /hpf (0-5); WHITE CELLS - URINE 0-5 /hpf (NEGATIVE)
[2019-02-25 14:10] LABS: BACTERIA MODERATE /hpf (NEGATIVE); MUCUS <1+ /lpf (NONE SEEN)
--- NOTE | 2019-02-25 19:00 | NUR ---
REPORT RECEIVED. PT AAOX4, SITTING UP IN BED, EATING AT THIS TIME. NO ACUTE DISTRESS NOTED. PT REFUSED IV FLUIDS AT THIS TIME. RIOS IN PLACE. LT AC PIV TO SL, SEE IV FLOWSHEET. ASSESSMENT COMPLETED, SEE FLOWSHEET. WILL CONTINUE TO MONITOR.
--- NOTE | 2019-02-25 21:00 | NUR ---
PT RESTING IN BED, BIPAP ON. NO ACUTE DISTRESS NOTED.
--- NOTE | 2019-02-25 23:00 | NUR ---
PT AAOX4, SITTING UP IN BED, BIPAP STILL IN PLACE. WILL CONTINUE TO MONITOR.
[2019-02-26] VITALS (24 sets, daily range): BP systolic 123–174; BP diastolic 65–135
--- NOTE | 2019-02-26 01:00 | NUR ---
PT RESTING IN BED, NO SIGNS OF ACUTE DISTRESS. WILL CONTINUE TO MONITOR.
--- NOTE | 2019-02-26 03:00 | NUR ---
PT SITTING UP IN BED, BIPAP IN PLACE. NO ACUTE DISTRESS AT THIS TIME.
[2019-02-26 04:23] LABS: BASOPHILS 0.1 % (0-2); EOSINOPHILS 0 % (0-7); HEMATOCRIT 44.7 % (42.0-54.0); HEMOGLOBIN 13.1 g/dL (13.5-17.5); IMMATURE GRANULOCYTES 0.4 % (0-5); LYMPHOCYTES 4.2 % (15-50); MCH 28.9 pg (26.0-34.0); MCHC 29.3 g/dL (31.0-37.0); MCV 98.5 fL (80.0-100.0); MEAN PLATELET VOLUME 10.5 fL (7.4-10.4); MONOCYTES 3.5 % (2-11); NEUTROPHILS 91.8 % (40-80); PLATELET COUNT 271 10x3/uL (130-400); RBC 4.54 10x6/uL (4.20-6.10); RDW 14.8 % (11.5-14.5); WBC 17.3 10x3/uL (4.8-10.8)
[2019-02-26 04:28] LABS: ALBUMIN 2.8 g/dL (3.4-5.0); ALKALINE PHOSPHATASE 82 U/L (46-116); ALT (SGPT) 38 U/L (10-68); BILIRUBIN - TOTAL 0.16 mg/dL (0.2-1.3); CALC OSMOLALITY 302 mosm/kg (275-300); CALCIUM 8.5 mg/dL (8.5-10.1); CHLORIDE - SERUM 104 mmol/L (98-107); CREATININE - SERUM 0.9 mg/dL (0.6-1.3); GLUCOSE 224 mg/dL (74-106); POTASSIUM - SERUM 4.9 mmol/L (3.5-5.1); PROTEIN - SERUM 6.8 g/dL (6.4-8.2); SODIUM 145 mmol/L (136-145); UREA NITROGEN 31 mg/dL (7-18); eGFR NON AFRICAN AMERICAN > 90 mL/min (90-120)
[2019-02-26 04:31] LABS: CARBON DIOXIDE 42.1 mmol/L (21.0-32.0)
--- NOTE | 2019-02-26 05:00 | NUR ---
PT SITTING UP IN BED, NO ACUTE DISTRESS NOTED. STATES HE IS JEHOVA'S WITNESS AND DOES NOT WANT TO RECEIVE BLOOD PRODUCTS.
--- NOTE | 2019-02-26 09:50 | NUR ---
Nutrition follow-up: Diet: ADA consistent CHO PO intake 100% of breakfast today Labs reviewed Wt: 405# RDN following.
--- NOTE | 2019-02-26 20:19 | NUR ---
ASSISTED PT TO BEDSIDE TOILET FROM CHAIR. VSS. HE DENIES PAIN OR NEEDS AT THIS TIME. CALL LIGHT WITHIN REACH.
--- NOTE | 2019-02-26 22:00 | NUR ---
PT HAD A BOWEL MOVEMENT. COMPLETED RIOS CARE AND WASHED HIS BOTTOM. HE DECLINED ANY FURTHER BATHING AT THIS TIME. CHANGED THE LINENS ON HIS BED AND ASSISTED HIM TO BED. RT IN ROOM ABOUT TO PLACE HIM ON THE BIPAP. BED IS LOW AND CALL LIGHT WITHIN REACH. HE DENIES NEEDS OR PAIN AT THIS TIME. VSS.
[2019-02-27] VITALS (24 sets, daily range): BP systolic 119–179; BP diastolic 84–135
--- NOTE | 2019-02-27 01:08 | NUR ---
NAOMI WEINBERG INFORMED OF PTS VITAL SIGNS. BLOOD PRESSURE 160/114 ON MONITOR LEFT ARM, USED A THIGH CUFF ON HIS RIGHT CALF AND GOT A READING OF 146/100, CHECKED IT MANUALLY ON HIS LEFT ARM AND IT WAS 150/96. COULD NOT FIND CLONIDINE PATCH THAT WAS PLACED ON SUNDAY PER APR. ORDERS TO PLACE A CLONIDINE PATCH ON HIM. SEE MAR FOR DETAILS.
[2019-02-27 04:32] LABS: BASOPHILS 0 % (0-2); EOSINOPHILS 0 % (0-7); HEMATOCRIT 45.1 % (42.0-54.0); HEMOGLOBIN 13.4 g/dL (13.5-17.5); IMMATURE GRANULOCYTES 0.5 % (0-5); LYMPHOCYTES 7.4 % (15-50); MCH 28.8 pg (26.0-34.0); MCHC 29.7 g/dL (31.0-37.0); MCV 96.8 fL (80.0-100.0); MEAN PLATELET VOLUME 10.7 fL (7.4-10.4); MONOCYTES 5.6 % (2-11); NEUTROPHILS 86.5 % (40-80); PLATELET COUNT 263 10x3/uL (130-400); RBC 4.66 10x6/uL (4.20-6.10); RDW 14.7 % (11.5-14.5)
[2019-02-27 04:45] LABS: WBC 12.4 10x3/uL (4.8-10.8)
[2019-02-27 05:01] LABS: ALBUMIN 2.6 g/dL (3.4-5.0); ALKALINE PHOSPHATASE 72 U/L (46-116); ALT (SGPT) 31 U/L (10-68); BILIRUBIN - TOTAL 0.23 mg/dL (0.2-1.3); CALC OSMOLALITY 301 mosm/kg (275-300); CALCIUM 8.2 mg/dL (8.5-10.1); CHLORIDE - SERUM 103 mmol/L (98-107); CREATININE - SERUM 0.8 mg/dL (0.6-1.3); GLUCOSE 210 mg/dL (74-106); POTASSIUM - SERUM 4.8 mmol/L (3.5-5.1); PROTEIN - SERUM 6.3 g/dL (6.4-8.2); SODIUM 145 mmol/L (136-145); UREA NITROGEN 32 mg/dL (7-18); eGFR NON AFRICAN AMERICAN > 90 mL/min (90-120)
--- NOTE | 2019-02-27 09:44 | NUR ---
PHYSICAL THEARPY AT BEDSIDE. UP TO CHAIR. BIPAP PUT ON AT THIS TIME
--- NOTE | 2019-02-27 09:44 | NUR ---
PATIENT AMBULATED WITH MINIMAL ASSIST. ACTIVE ROM EXERCISES DURING THIS TIME PER PT REQUEST.
--- NOTE | 2019-02-27 09:46 | NUR ---
BLANCA HERRON AT THIS TIME. PATIENT STATES BURNING SENSATION. EDUCATED ON USE OF URINAL.
--- NOTE | 2019-02-27 11:30 | NUR ---
patient urinated in urinal after peña removal. bala color. about 100 cc.
--- NOTE | 2019-02-27 11:45 | NUR ---
lunch tray providd to patient in chair. switched to nasal cannula. blood gas per dr dolan. can not transfer per dr dolan. no acute distress. patient compliant calm and cooperative.
--- NOTE | 2019-02-27 13:45 | NUR ---
chg bath done at this time. linen change. patient incontinent of bowel andurine
--- NOTE | 2019-02-27 14:27 | NUR ---
BIPAP CHANGES ORDERED BY DR LEWIS 19/09 40%
--- NOTE | 2019-02-27 16:41 | MORECARE ---
CASE MANAGEMENT DISCHARGE SUMMARY PATIENT: SAMANTHA PAN JR UNIT: [id number] ADM DATE: 02/24/19 AGE: 58 : 56 SEX: M ROOM/BED: D.2305 AUTHOR: ELKIN,DOC PHYSICIAN: REFERRING PHYSICIAN: CHENTE CADENA DO DATE OF SERVICE: 02/27/19 Discharge Plan Patient Name: SAMANTHA PAN Facility: [facility]:[place] : 1960 Planned Disposition: Home Health Service Anticipated Discharge Date: 02/27/19 Discharge Date: Expected LOS: 3 Initial Reviewer: [email or web address] Initial Review Date: 02/24/2019 Generated: 02/27/19 5:41 pm Comments DCP- Discharge Planning Updated by [email or web address]: Marielle Gracia on 02/27/19 3:[address] CM spoke with patient about potentially going to [facility] for Inpatient rehab . Patient refused but said he might be interested in Home Health. Then patient declined to sign a SAMEER or declination at this time. Patient seems somewhat confused at this time. CM will revisit at a later time to check status of rehab v/s home health. Patient only has Medicaid so [facility] is the only possibility that is only if he will have days available. CM will continue to follow and assist as needed with discharge planning / needs DCP- Discharge Planning Updated by [email or web address]: Geovanna Goldberg on 02/24/19 1:[address] DC PLAN: Rehab vs home health ANTICIPATED DC NEEDS: may need rehab or hh according to Watson (Friend) CM met with patient to complete initial dc planning assessment. He was on CPAP and confused, unable to answer questions at this time. CM contacted contact on facesheet Watson Wilner, , who gave consent to complete assessment. CM verified patient's address, phone number, and emergency contact phone numbers. Patient lives at [facility] alone, and has been doing well on his own unitl the past few days. He lives alone. He does have a house keeper that was coming 4x week to assist with grocery shopping and house cleaning. Watson is not sure she still comes 4x week. Watson reports the patient has become increasingly weak and requiring more assistance. Watson drove him to his doctors appointment today in [place] and his PCP called an ambulance to bring him to the ER. CM discussed availability of home health, rehab services, and medical equipment. Watson feels that he will need assistance at dc rehab or home health. Patient unable at this time to sign SAMEER or even agree to assistance at dc. Transportation provider at discharge will be Watson if he is able to dc home. CM will continue to follow and will assist as needed with dc plans/needs. Geovanna Goldberg RN, [facility] DCPIA - Discharge Planning Initial Assessment Updated by [email or web address]: Geovanna Goldberg on 02/24/19 2:30 pm * Is the patient Alert and Oriented? No * How many steps to enter\exit or inside your home? elevator * PCP Dr. Urbina * Pharmacy [facility] on [address] * Preadmission Environment Home Alone * ADLs Independent * Equipment Cane CPAP Rolling Walker Wheelchair * List name and contact numbers for known caregivers / representatives who currently or will assist patient after discharge: Watson Darby - [place] - [phone] * Verbal permission to speak to the caregivers and representatives has been obtained from the patient. Yes * Community resources currently utilized Other * Please name any agencies selected above. has a house keeper that was coming 4 x week that gets his groceries for him. * Additional services required to return to the preadmission environment? Yes * Can the patient safely return to the preadmission environment? Yes * Has this patient been hospitalized within the prior 30 days at any hospital? No Last DP export: 02/24/19 1:38 p Patient Name: SAMANTHA PAN Page [id number] at 1641 All edits/amendments must be made on the electronic document DICTATION DATE: 02/27/191640 REHABILITATION CLERK: GILMA 02/27/191640 RPT#: [id number] MT DATE: STATUS: ADM IN [facility] [address] [place] [address] END OF REPORT
--- NOTE | 2019-02-27 17:42 | NUR ---
patient pulled out IV and urinated on floor and on himself. will continue to monitor.
--- NOTE | 2019-02-27 17:56 | NUR ---
radha cleaned up. transferred to bed. will continue to monitor
--- NOTE | 2019-02-27 21:30 | NUR ---
NEW IV STARTED TO RIGHT HAND. PM MEDS GIVEN. HIS RESPIRATIONS ARE EVEN AND UNLABORED. SHORT OF BREATH WITH EXERTION. 02 SAT 96% ON 4.5L NC. VSS UNCHANGED FROM TODAY. HE DENIES PAIN OR NEEDS. BED LOW AND CALL LIGHT IN REACH. 200ML URINE EMPTIED FROM URINAL.
[2019-02-28] VITALS (10 sets, daily range): BP systolic 106–157; BP diastolic 77–119
--- NOTE | 2019-02-28 02:07 | NUR ---
PT HAD URGENCY TO VOID AND COULD NOT GET TO HIS URINAL IN TIME. VOIDED ON THE BED AND FLOOR. LINEN CHANGE COMPLETE AND ASSISTED TO CLEAN HIM UP. DURING THIS HE ALMOST HAD HIS IV PULLED OUT. IV WITH BLOOD RETURN, NOT PAINFUL AND FLUSHES WELL. REINFORCED AND WRAPPED IN KERLEX. HE IS REQUESTING TO COME OFF THE BIPAP SO HE CAN EAT SOME CRACKERS. RT IN ROOM AND PLACE HIM ON 4.5L NC. O2 SAT 98%. HE DENIES FURTHER NEEDS. GAVE PT 2 URINALS AND HIS CALL LIGHT IS WITHIN REACH AND BED IS LOW.
[2019-02-28 04:04] LABS: BASOPHILS 0.2 % (0-2); EOSINOPHILS 0.1 % (0-7); HEMATOCRIT 44.7 % (42.0-54.0); HEMOGLOBIN 13.9 g/dL (13.5-17.5); IMMATURE GRANULOCYTES 0.7 % (0-5); MCH 29.2 pg (26.0-34.0); MCHC 31.1 g/dL (31.0-37.0); MCV 93.9 fL (80.0-100.0); MEAN PLATELET VOLUME 12.3 fL (7.4-10.4); MONOCYTES 6.9 % (2-11); NEUTROPHILS 82.1 % (40-80); PLATELET COUNT 292 10x3/uL (130-400); RBC 4.76 10x6/uL (4.20-6.10); RDW 15.7 % (11.5-14.5); WBC 8.9 10x3/uL (4.8-10.8)
[2019-02-28 04:37] LABS: ALBUMIN 2.6 g/dL (3.4-5.0); ALKALINE PHOSPHATASE 71 U/L (46-116); ALT (SGPT) 30 U/L (10-68); BILIRUBIN - TOTAL 0.51 mg/dL (0.2-1.3); CALCIUM 8.1 mg/dL (8.5-10.1); CARBON DIOXIDE 37.2 mmol/L (21.0-32.0); CHLORIDE - SERUM 101 mmol/L (98-107); CREATININE - SERUM 0.9 mg/dL (0.6-1.3); PROTEIN - SERUM 6.4 g/dL (6.4-8.2); SODIUM 142 mmol/L (136-145); THYROID STIMULATING HORMONE 1.31 uIU/mL (0.36-3.74); UREA NITROGEN 33 mg/dL (7-18); eGFR NON AFRICAN AMERICAN > 90 mL/min (90-120)
[2019-02-28 04:44] LABS: CALC OSMOLALITY 298 mosm/kg (275-300); GLUCOSE 269 mg/dL (74-106)
[2019-02-28 04:45] LABS: POTASSIUM - SERUM 5.7 mmol/L (3.5-5.1)
--- NOTE | 2019-02-28 05:08 | NUR ---
PT REFUSING IV FLUIDS, NORMAL SALINE. HE STATES HE IS ALREADY URINATING "TOO MUCH", HE STATES. HE VOIDED 1100ML OF YADIEL COLORED URINE ON THIS SHIFT.
--- NOTE | 2019-02-28 07:00 | NUR ---
patient is alert and oriented. no acute distress. laying in bed sleeping. arouses to speech. denies pain and needs. states he is ready for breakfast. reminded him goals today are to get to the side of the bed and ambulate to chair with minimal assistance. pulses palp. lobes diminished. on nasal cannula. educated about the need of bipap. will continue to monitor patient.
--- NOTE | 2019-02-28 09:25 | NUR ---
patient eating breakfast. filling out menu at this time. on nasal cannula. denies needs and pain. will continue to monitor
--- NOTE | 2019-02-28 11:17 | NUR ---
NUTRITION F/U PT TOLERATING DIABETIC DIET WITH 100% INTAKE RECENT MEALS. WILL CONTINUE TO PROVIDE DIET, MONITOR PO INTAKE. RD FOLLOWING
--- NOTE | 2019-02-28 13:45 | NUR ---
TO ROOM 2220 FROM ICU VIA WHEELCHAIR. PT IS WITHOUT DISTRESS.CALL LIGHT IN REACH
--- NOTE | 2019-02-28 15:48 | NUR ---
HAS BEEN SITTING UP IN CHAIR.HE IS WITHOUT DISTRESS.
--- NOTE | 2019-02-28 18:36 | NUR ---
SITTING UP IN CHAIR,REMAINS WITHOUT DISTRESS.CONT PLAN OF CARE
--- NOTE | 2019-02-28 19:25 | NUR ---
PATIENT AWAKE AND SITTING IN CHAIR. NO ACUTE S/S OF DISTRESS. NO C/O AT THIS TIME. PATIENT HAS R HAND IV NORMAL SALINE @ 50 ML/HR. IV IS PATENT WITHOUT REDNESS, SWELLING, OR TENDERNESS. PATIENT IS ON HIGH-FLOW O2 @ 5L. BIPAP PRN. PATIENT HAS TELEMETRY @ 82 FLUTTER. PATIENT USES URINAL. CALL LIGHT IN PLACE. WILL CONTINUET TO MONITOR.
[2019-03-01] VITALS: BP 180/88
[2019-03-01 04:48] VITALS: BP 146/93
[2019-03-01 06:19] LABS: BASOPHILS 0.1 % (0-2); EOSINOPHILS 0.1 % (0-7); HEMATOCRIT 45.2 % (42.0-54.0); HEMOGLOBIN 13.9 g/dL (13.5-17.5); IMMATURE GRANULOCYTES 0.7 % (0-5); LYMPHOCYTES 10.9 % (15-50); MCH 29.1 pg (26.0-34.0); MCHC 30.8 g/dL (31.0-37.0); MCV 94.8 fL (80.0-100.0); MEAN PLATELET VOLUME 10.3 fL (7.4-10.4); MONOCYTES 7.7 % (2-11); NEUTROPHILS 80.5 % (40-80); PLATELET COUNT 240 10x3/uL (130-400); RBC 4.77 10x6/uL (4.20-6.10); RDW 14.4 % (11.5-14.5)
[2019-03-01 06:54] LABS: ALBUMIN 2.5 g/dL (3.4-5.0); ALKALINE PHOSPHATASE 64 U/L (30-120); ALT (SGPT) 27 U/L (10-68); BILIRUBIN - TOTAL 0.48 mg/dL (0.2-1.3); CALC OSMOLALITY 291 mosm/kg (275-300); CALCIUM 8.2 mg/dL (8.5-10.1); CARBON DIOXIDE 37.2 mmol/L (21.0-32.0); CHLORIDE - SERUM 100 mmol/L (98-107); CREATININE - SERUM 0.7 mg/dL (0.6-1.3); GLUCOSE 221 mg/dL (74-106); MAGNESIUM - SERUM 1.6 mg/dL (1.8-2.4); PHOSPHOROUS 3.9 mg/dL (2.5-4.9); POTASSIUM - SERUM 5.1 mmol/L (3.5-5.1); SODIUM 140 mmol/L (136-145); UREA NITROGEN 28 mg/dL (7-18); eGFR NON AFRICAN AMERICAN > 90 mL/min (90-120)
--- NOTE | 2019-03-01 08:19 | NUR ---
RESTING IN BED, NO DISTRESS NOTED, CONT TO MONITOR SUGARS AND RESP STATUS
[2019-03-01 09:50] VITALS: BP 120/83
--- NOTE | 2019-03-01 09:53 | NUR ---
I have reviewed this patient and I concur with the Shift Assessment completed by the Licensed Practical Nurse today this shift.
[2019-03-01 13:37] VITALS: BP 131/79
[2019-03-01 17:52] VITALS: BP 127/70
--- NOTE | 2019-03-01 19:00 | NUR ---
BEDSIDE REPORT RECEIVED AND CARE OF PT ASSUMED. PT SITTING UP IN CHAIR AT THIS TIME WATCHING TV. IV TO RIGHT HAND PATENT WITH NS INFUSING AT 50 ML/HR. O2 IN USE AT 4L VIA NC. WILL MONITOR FOR NEEDS. BED ALARM IN USE FOR SAFETY.
[2019-03-01 20:00] VITALS: BP 126/72
--- NOTE | 2019-03-01 20:15 | NUR ---
HS SNACK GIVEN: COFFEE AND CRACKERS.
--- NOTE | 2019-03-01 20:32 | NUR ---
HS MEDICATIONS GIVEN. FSBS 289 THIS CHECK REQUIRING COVERAGE WITH 24 UNITS OF INSULIN PER SLIDING SCALE. WILL MONITOR FOR NEEDS.
[2019-03-02] VITALS: BP 120/78
[2019-03-02 04:00] VITALS: BP 148/94
[2019-03-02 05:48] LABS: BASOPHILS 0.1 % (0-2); EOSINOPHILS 0.6 % (0-7); HEMATOCRIT 46.1 % (42.0-54.0); HEMOGLOBIN 13.1 g/dL (13.5-17.5); IMMATURE GRANULOCYTES 1.4 % (0-5); LYMPHOCYTES 12.7 % (15-50); MCH 27.2 pg (26.0-34.0); MCHC 28.4 g/dL (31.0-37.0); MCV 95.6 fL (80.0-100.0); MEAN PLATELET VOLUME 10.5 fL (7.4-10.4); MONOCYTES 8.4 % (2-11); NEUTROPHILS 76.8 % (40-80); PLATELET COUNT 219 10x3/uL (130-400); RBC 4.82 10x6/uL (4.20-6.10); RDW 14.5 % (11.5-14.5); WBC 12.3 10x3/uL (4.8-10.8)
[2019-03-02 07:17] LABS: ALBUMIN 2.7 g/dL (3.4-5.0); ALKALINE PHOSPHATASE 65 U/L (30-120); ALT (SGPT) 30 U/L (10-68); BILIRUBIN - TOTAL 0.49 mg/dL (0.2-1.3); CALC OSMOLALITY 293 mosm/kg (275-300); CALCIUM 8.4 mg/dL (8.5-10.1); CARBON DIOXIDE 43.6 mmol/L (21.0-32.0); CHLORIDE - SERUM 100 mmol/L (98-107); CREATININE - SERUM 0.9 mg/dL (0.6-1.3); GLUCOSE 221 mg/dL (74-106); MAGNESIUM - SERUM 1.6 mg/dL (1.8-2.4); SODIUM 141 mmol/L (136-145); UREA NITROGEN 28 mg/dL (7-18); eGFR NON AFRICAN AMERICAN > 90 mL/min (90-120)
[2019-03-02 08:55] VITALS: BP 120/75
[2019-03-02 14:15] VITALS: BP 112/79
--- NOTE | 2019-03-02 16:31 | NUR ---
I have reviewed this patient and I concur with the Shift Assessment completed by the Licensed Practical Nurse today this shift.
--- NOTE | 2019-03-02 19:00 | NUR ---
BEDSIDE REPORT RECEIVED AND CARE OF PT ASSUMED. PT SITTING UP IN CHAIR AT THIS TIME. O2 IN USE VIA NC AT 4L. IV TO RIGHT HAND PATENT. TELEMETRY IN PLACE PER ORDER. WILL MONITOR FOR NEEDS.
[2019-03-02 19:08] VITALS: BP 161/72
[2019-03-02 20:00] VITALS: BP 149/84
--- NOTE | 2019-03-02 20:47 | NUR ---
HS MEDICATIONS GIVEN. FSBS 298 THIS CHECK REQUIRING COVERAGE WITH 16 UNITS INSULIN PER SLIDING SCALE.
--- NOTE | 2019-03-02 20:48 | NUR ---
[facility] can not be accepted at [facility] Acute Inpatient Rehab. Recommended to send referral to [facility].
--- NOTE | 2019-03-02 21:00 | NUR ---
HS SNACK GIVEN PER DIET ORDER.
[2019-03-03 00:43] VITALS: BP 131/78
[2019-03-03 04:31] VITALS: BP 140/66
[2019-03-03 05:20] LABS: HEMATOCRIT 47.4 % (42.0-54.0); HEMOGLOBIN 14.4 g/dL (13.5-17.5); LYMPHOCYTES 22.4 % (15-50); MCH 28.5 pg (26.0-34.0); MCHC 30.4 g/dL (31.0-37.0); MCV 93.7 fL (80.0-100.0); MEAN PLATELET VOLUME 10.4 fL (7.4-10.4); NEUTROPHILS 68.8 % (40-80); PLATELET COUNT 231 10x3/uL (130-400); RBC 5.06 10x6/uL (4.20-6.10); RDW 14.6 % (11.5-14.5); WBC 12.7 10x3/uL (4.8-10.8)
[2019-03-03 06:27] LABS: ALBUMIN 2.8 g/dL (3.4-5.0); ALKALINE PHOSPHATASE 68 U/L (30-120); BILIRUBIN - TOTAL 0.44 mg/dL (0.2-1.3); CALC OSMOLALITY 298 mosm/kg (275-300); CALCIUM 8.4 mg/dL (8.5-10.1); CHLORIDE - SERUM 98 mmol/L (98-107); GLUCOSE 199 mg/dL (74-106); POTASSIUM - SERUM 4.5 mmol/L (3.5-5.1); PROTEIN - SERUM 5.7 g/dL (6.4-8.2); SODIUM 144 mmol/L (136-145); UREA NITROGEN 28 mg/dL (7-18); eGFR NON AFRICAN AMERICAN 81 mL/min (90-120)
[2019-03-03 06:29] LABS: ALT (SGPT) 41 U/L (10-68)
[2019-03-03 06:30] LABS: CARBON DIOXIDE 40.2 mmol/L (21.0-32.0)
--- NOTE | 2019-03-03 07:00 | NUR ---
PATIENT RECIEVED RESTING IN BED WITH NO NEEDS VOICED. 02 95% 0N 3 L/NC. RESPIRTAIONS NONLABORED. CL IN REACH
[2019-03-03 09:09] VITALS: BP 116/68
[2019-03-03 12:16] LABS: APPEARANCE CLEAR (CLEAR); BILIRUBIN NEGATIVE (NEGATIVE); COLOR YELLOW (YELLOW); GLUCOSE 250 mg/dL (NEGATIVE); KETONE NEGATIVE (NEGATIVE); NITRITE NEGATIVE (NEGATIVE); PROTEIN NEGATIVE (NEGATIVE); UROBILINOGEN NORMAL (NORMAL)
[2019-03-03 12:49] VITALS: BP 182/62
--- NOTE | 2019-03-03 15:07 | MORECARE ---
CASE MANAGEMENT DISCHARGE SUMMARY PATIENT: SAMANTHA PAN JR UNIT: [id number] ADM DATE: 02/24/19 AGE: 58 : 56 SEX: M ROOM/BED: D.2220 AUTHOR: ELKIN,DOC PHYSICIAN: REFERRING PHYSICIAN: CHENTE CADENA DO DATE OF SERVICE: 03/03/19 Discharge Plan Patient Name: SAMANTHA PAN Facility: [facility]:[place] : 1960 Planned Disposition: Home Health Service Anticipated Discharge Date: 02/27/19 Discharge Date: Expected LOS: 3 Initial Reviewer: [email or web address] Initial Review Date: 02/24/2019 Generated: 03/03/19 4:07 pm Comments DCP- Discharge Planning Updated by [email or web address]: Marielle Gracia on 02/27/19 3:[address] CM spoke with patient about potentially going to [facility] for Inpatient rehab . Patient refused but said he might be interested in Home Health. Then patient declined to sign a SAMEER or declination at this time. Patient seems somewhat confused at this time. CM will revisit at a later time to check status of rehab v/s home health. Patient only has Medicaid so [facility] is the only possibility that is only if he will have days available. CM will continue to follow and assist as needed with discharge planning / needs DCP- Discharge Planning Updated by [email or web address]: Geovanna Goldberg on 02/24/19 1:[address] DC PLAN: Rehab vs home health ANTICIPATED DC NEEDS: may need rehab or hh according to Watson (Friend) CM met with patient to complete initial dc planning assessment. He was on CPAP and confused, unable to answer questions at this time. CM contacted contact on facesheet Watson Wilner, , who gave consent to complete assessment. CM verified patient's address, phone number, and emergency contact phone numbers. Patient lives at [facility] alone, and has been doing well on his own unitl the past few days. He lives alone. He does have a house keeper that was coming 4x week to assist with grocery shopping and house cleaning. Watson is not sure she still comes 4x week. Watson reports the patient has become increasingly weak and requiring more assistance. Watson drove him to his doctors appointment today in [place] and his PCP called an ambulance to bring him to the ER. CM discussed availability of home health, rehab services, and medical equipment. Watson feels that he will need assistance at dc rehab or home health. Patient unable at this time to sign SMAEER or even agree to assistance at dc. Transportation provider at discharge will be Watson if he is able to dc home. CM will continue to follow and will assist as needed with dc plans/needs. Geovanna Goldberg RN, [facility] DCPIA - Discharge Planning Initial Assessment Updated by [email or web address]: Geovanna Goldberg on 02/24/19 2:30 pm * Is the patient Alert and Oriented? No * How many steps to enter\exit or inside your home? elevator * PCP Dr. Urbina * Pharmacy [facility] on [address] * Preadmission Environment Home Alone * ADLs Independent * Equipment Cane CPAP Rolling Walker Wheelchair * List name and contact numbers for known caregivers / representatives who currently or will assist patient after discharge: Watson Darby - [place] - [phone] * Verbal permission to speak to the caregivers and representatives has been obtained from the patient. Yes * Community resources currently utilized Other * Please name any agencies selected above. has a house keeper that was coming 4 x week that gets his groceries for him. * Additional services required to return to the preadmission environment? Yes * Can the patient safely return to the preadmission environment? Yes * Has this patient been hospitalized within the prior 30 days at any hospital? No External Providers External Provider: [facility] Next Contact Date: Service Request Date: Service Type: Resolution: Reviewer: Comments: Last DP export: 02/27/19 3:41 p Patient Name: SAMANTHA PAN Page [phone] at 1507 All edits/amendments must be made on the electronic document DICTATION DATE: 03/03/191506 TECHNOLOGY ASSISTANT: GILMA 03/03/191506 RPT#: [id number] DC DATE: STATUS: ADM IN [facility] [address] [place] [address] END OF REPORT
--- NOTE | 2019-03-03 15:28 | MORECARE ---
CASE MANAGEMENT DISCHARGE SUMMARY PATIENT: SAMANTHA PAN JR UNIT: [id number] ADM DATE: 02/24/19 AGE: 58 : 56 SEX: M ROOM/BED: D.2220 AUTHOR: ELKIN,DOC PHYSICIAN: REFERRING PHYSICIAN: CHENTE CADENA DO DATE OF SERVICE: 03/03/19 Discharge Plan Patient Name: SAMANTHA PAN Facility: [facility]:[place] : 1960 Planned Disposition: Home Health Service Anticipated Discharge Date: 02/27/19 Discharge Date: Expected LOS: 3 Initial Reviewer: [email or web address] Initial Review Date: 02/24/2019 Generated: 03/03/19 4:27 pm Comments DCP- Discharge Planning Updated by [email or web address]: Radha Waddell on 03/03/19 2:[address] SPOKE WITH PATIENT ABOUT HOME HEALTH AND O2, SHE USES [facility] FOR HIS CPAP, BUT PULM STATES HE NEEDS A BIPAP/TRILIOGY. I HAVE CALLED [facility] AND SPOKE WITH MORGAN. PATIENT WILL NEED A ABG ABD WALK TEST PRIOR TO DC. HE WOULD LIKE TO HAVE HOME HEALTH. HE HAS SENIOR HELPERS. CM WILL CONTINUE TO FOLLOW AND ASSIST TO GET THE PATIENT HOME O2 AND TRILIOGY. DCP- Discharge Planning Updated by [email or web address]: Marielle Gracia on 02/27/19 3:[address] CM spoke with patient about potentially going to [facility] for Inpatient rehab . Patient refused but said he might be interested in Home Health. Then patient declined to sign a SAMEER or declination at this time. Patient seems somewhat confused at this time. CM will revisit at a later time to check status of rehab v/s home health. Patient only has Medicaid so [facility] is the only possibility that is only if he will have days available. CM will continue to follow and assist as needed with discharge planning / needs DCP- Discharge Planning Updated by [email or web address]: Geovanna Goldberg on 02/24/19 1:[address] DC PLAN: Rehab vs home health ANTICIPATED DC NEEDS: may need rehab or hh according to Watson (Friend) CM met with patient to complete initial dc planning assessment. He was on CPAP and confused, unable to answer questions at this time. CM contacted contact on facesheet Watson Darby, , who gave consent to complete assessment. CM verified patient's address, phone number, and emergency contact phone numbers. Patient lives at [facility] alone, and has been doing well on his own unitl the past few days. He lives alone. He does have a house keeper that was coming 4x week to assist with grocery shopping and house cleaning. Watson is not sure she still comes 4x week. Watson reports the patient has become increasingly weak and requiring more assistance. Watson drove him to his doctors appointment today in [place] and his PCP called an ambulance to bring him to the ER. CM discussed availability of home health, rehab services, and medical equipment. Watson feels that he will need assistance at dc rehab or home health. Patient unable at this time to sign SAMEER or even agree to assistance at dc. Transportation provider at discharge will be Watson if he is able to dc home. CM will continue to follow and will assist as needed with dc plans/needs. Geovanna Goldberg RN, [facility] DCPIA - Discharge Planning Initial Assessment Updated by [email or web address]: Geovanna Goldberg on 02/24/19 2:30 pm * Is the patient Alert and Oriented? No * How many steps to enter\exit or inside your home? elevator * PCP Dr. Urbina * Pharmacy [facility] on [address] * Preadmission Environment Home Alone * ADLs Independent * Equipment Cane CPAP Rolling Walker Wheelchair * List name and contact numbers for known caregivers / representatives who currently or will assist patient after discharge: Watson Darby - friend - [phone] * Verbal permission to speak to the caregivers and representatives has been obtained from the patient. Yes * Community resources currently utilized Other * Please name any agencies selected above. has a house keeper that was coming 4 x week that gets his groceries for him. * Additional services required to return to the preadmission environment? Yes * Can the patient safely return to the preadmission environment? Yes * Has this patient been hospitalized within the prior 30 days at any hospital? No Last DP export: 03/03/19 2:08 p Patient Name: SAMANTHA PAN Page 54224 at 1528 All edits/amendments must be made on the electronic document DICTATION DATE: 03/03/19 152 ENVIRONMENTAL TECHNICAL OFFICER: GILMA 03/03/191526 RPT#: [id number] DC DATE: STATUS: ADM IN [facility] [address] [place] [address] END OF REPORT
[2019-03-03 16:01] VITALS: BP 119/79
--- NOTE | 2019-03-03 18:30 | NUR ---
PATIENT SITTING UP IN CHAIR WITH NO NEEDS VOICED. CL IN REACH
--- NOTE | 2019-03-03 19:00 | NUR ---
BEDSIDE REPORT RECEIVED AND CARE OF PT ASSUMED. PT SITTING UP IN CHAIR AT THIS TIME. O2 IN USE VIA NC AT 4L. TELEMETRY IN PLACE PER ORDER. WILL MONITOR FOR NEEDS.
[2019-03-03 19:30] VITALS: BP 110/64
--- NOTE | 2019-03-03 20:34 | NUR ---
HS MEDICATIONS GIVEN. FSBS 309 THIS CHECK REQUIRING COVERAGE WITH 20 UNITS OF INSULIN PER SLIDING SCALE.
--- NOTE | 2019-03-03 20:45 | NUR ---
CALLED RT TO PLACE PT ON BIPAP FOR BEDTIME.
[2019-03-04 00:30] VITALS: BP 108/62
[2019-03-04 04:30] VITALS: BP 111/66
[2019-03-04 06:08] LABS: BASOPHILS 0.1 % (0-2); EOSINOPHILS 1.4 % (0-7); HEMATOCRIT 45.9 % (42.0-54.0); HEMOGLOBIN 13.7 g/dL (13.5-17.5); IMMATURE GRANULOCYTES 1.4 % (0-5); LYMPHOCYTES 21.3 % (15-50); MCH 28.7 pg (26.0-34.0); MCHC 29.8 g/dL (31.0-37.0); MEAN PLATELET VOLUME 10.6 fL (7.4-10.4); MONOCYTES 7.4 % (2-11); NEUTROPHILS 68.4 % (40-80); PLATELET COUNT 270 10x3/uL (130-400); RBC 4.77 10x6/uL (4.20-6.10); RDW 14.9 % (11.5-14.5); WBC 14.1 10x3/uL (4.8-10.8)
[2019-03-04 06:21] LABS: MCV 96.2 fL (80.0-100.0)
[2019-03-04 06:28] LABS: ALBUMIN 2.7 g/dL (3.4-5.0); ALKALINE PHOSPHATASE 71 U/L (30-120); ALT (SGPT) 32 U/L (10-68); BILIRUBIN - TOTAL 0.41 mg/dL (0.2-1.3); CALCIUM 8.6 mg/dL (8.5-10.1); CHLORIDE - SERUM 103 mmol/L (98-107); GLUCOSE 192 mg/dL (74-106); POTASSIUM - SERUM 4.9 mmol/L (3.5-5.1); PROTEIN - SERUM 5.5 g/dL (6.4-8.2); SODIUM 145 mmol/L (136-145); eGFR NON AFRICAN AMERICAN 81 mL/min (90-120)
[2019-03-04 07:07] LABS: CALC OSMOLALITY 302 mosm/kg (275-300); UREA NITROGEN 39 mg/dL (7-18)
[2019-03-04 07:14] LABS: CARBON DIOXIDE 43.9 mmol/L (21.0-32.0)
--- NOTE | 2019-03-04 08:00 | NUR ---
ASSESSMENT PER FLOW SHEET. PT IS WITHOUT DISTRESS.MONITOR FOR NEEDS. PT IS UP AT BEDSIDE.
[2019-03-04 08:59] VITALS: BP 119/74
[2019-03-04 12:12] VITALS: BP 112/73
[2019-03-04 16:49] VITALS: BP 97/64
--- NOTE | 2019-03-04 17:01 | MORECARE ---
CASE MANAGEMENT DISCHARGE SUMMARY PATIENT: SAMANTHA PAN JR UNIT: [id number] ADM DATE: 02/24/19 AGE: 58 : 56 SEX: M ROOM/BED: D.2220 AUTHOR: ELKINDOC PHYSICIAN: REFERRING PHYSICIAN: CHENTE CADENA DO DATE OF SERVICE: 03/04/19 Discharge Plan Patient Name: SAMANTHA PAN Facility: [facility]:[place] : 1960 Planned Disposition: Home Health Service Anticipated Discharge Date: 02/27/19 Discharge Date: Expected LOS: 3 Initial Reviewer: [email or web address] Initial Review Date: 02/24/2019 Generated: 03/04/19 6:00 pm Comments DCP- Discharge Planning Updated by [email or web address]: Radha Waddell on 03/04/19 3:[address] MORGAN WITH [facility] HAS CAME AND SET UP THE PATIENTS TRILIOGY DCP- Discharge Planning Updated by [email or web address]: Radha Waddell on 03/03/19 2:[address] SPOKE WITH PATIENT ABOUT HOME HEALTH AND O2, SHE USES [facility] FOR HIS CPAP, BUT PULM STATES HE NEEDS A BIPAP/TRILIOGY. I HAVE CALLED [facility] AND SPOKE WITH MORGAN. PATIENT WILL NEED A ABG ABD WALK TEST PRIOR TO DC. HE WOULD LIKE TO HAVE HOME HEALTH. HE HAS SENIOR HELPERS. CM WILL CONTINUE TO FOLLOW AND ASSIST TO GET THE PATIENT HOME O2 AND TRILIOGY. DCP- Discharge Planning Updated by [id number]: Marielle Gracia on 02/27/19 3:[address] CM spoke with patient about potentially going to [facility] for Inpatient rehab . Patient refused but said he might be interested in Home Health. Then patient declined to sign a SAMEER or declination at this time. Patient seems somewhat confused at this time. CM will revisit at a later time to check status of rehab v/s home health. Patient only has Medicaid so [facility] is the only possibility that is only if he will have days available. CM will continue to follow and assist as needed with discharge planning / needs DCP- Discharge Planning Updated by [id number]: Geovanna Goldberg on 02/24/19 1:[address] DC PLAN: Rehab vs home health ANTICIPATED DC NEEDS: may need rehab or hh according to Watson (Phillip) CM met with patient to complete initial dc planning assessment. He was on CPAP and confused, unable to answer questions at this time. CM contacted contact on facesheet Watson Darby, , who gave consent to complete assessment. CM verified patient's address, phone number, and emergency contact phone numbers. Patient lives at [facility] alone, and has been doing well on his own unitl the past few days. He lives alone. He does have a house keeper that was coming 4x week to assist with grocery shopping and house cleaning. Watson is not sure she still comes 4x week. Watson reports the patient has become increasingly weak and requiring more assistance. Watson drove him to his doctors appointment today in [place] and his PCP called an ambulance to bring him to the ER. CM discussed availability of home health, rehab services, and medical equipment. Watson feels that he will need assistance at dc rehab or home health. Patient unable at this time to sign SAMEER or even agree to assistance at dc. Transportation provider at discharge will be Watson if he is able to dc home. CM will continue to follow and will assist as needed with dc plans/needs. Geovanna Goldberg RN, [facility] DCPIA - Discharge Planning Initial Assessment Updated by [id number]: Geovanna Goldberg on 02/24/19 2:30 pm * Is the patient Alert and Oriented? No * How many steps to enter\exit or inside your home? elevator * PCP Dr. Urbina * Pharmacy [facility] * Preadmission Environment Home Alone * ADLs Independent * Equipment Cane CPAP Rolling Walker Wheelchair * List name and contact numbers for known caregivers / representatives who currently or will assist patient after discharge: Watson Darby - [place] - [phone] * Verbal permission to speak to the caregivers and representatives has been obtained from the patient. Yes * Community resources currently utilized Other * Please name any agencies selected above. has a house keeper that was coming 4 x week that gets his groceries for him. * Additional services required to return to the preadmission environment? Yes * Can the patient safely return to the preadmission environment? Yes * Has this patient been hospitalized within the prior 30 days at any hospital? No Last DP export: 1/27/20 2:28 p Patient Name: SAMANTHA PAN Page 22325 at 1701 All edits/amendments must be made on the electronic document DICTATION DATE: 03/04/191699 RADIOPHARMACIST: GILMA 03/04/191699 RPT#: [id number] DC DATE: STATUS: ADM IN [facility] [address] [place] [address] END OF REPORT
--- NOTE | 2019-03-04 18:10 | NUR ---
UP IN CHAIR,WITHOUT DISTRESS.WITHOUT CHANGE.CONT PLAN OF CARE
[2019-03-04 19:30] VITALS: BP 88/50
--- NOTE | 2019-03-04 19:30 | NUR ---
PT SITTING UP IN CHAIR WITHOUT DISTRESS, AOX4. DENIES PAIN. REQUESTED AND GIVEN CRANBERRY JUICE. IV RIGHT HAND SL. O2 3L/HFNC. TELE IN PLACE, 60 A FLUTTER. DENIES OTHER NEEDS. CL IN REACH, WILL CTM
--- NOTE | 2019-03-04 21:00 | NUR ---
FSBS 409, 28 UNITS HUMALOG, 16 UNITS LANTUS GIVEN. PT GIVEN HS SNACK. DENIES OTHER NEEDS. WILL CTM
[2019-03-05 00:30] VITALS: BP 100/60
[2019-03-05 04:50] VITALS: BP 122/75
[2019-03-05 05:16] LABS: BASOPHILS 0.1 % (0-2); EOSINOPHILS 1.2 % (0-7); HEMATOCRIT 42.9 % (42.0-54.0); HEMOGLOBIN 13.1 g/dL (13.5-17.5); IMMATURE GRANULOCYTES 1.2 % (0-5); MCH 28.9 pg (26.0-34.0); MCHC 30.5 g/dL (31.0-37.0); MCV 94.5 fL (80.0-100.0); MEAN PLATELET VOLUME 10.4 fL (7.4-10.4); MONOCYTES 7.1 % (2-11); NEUTROPHILS 68.4 % (40-80); PLATELET COUNT 248 10x3/uL (130-400); RBC 4.54 10x6/uL (4.20-6.10)
[2019-03-05 05:38] LABS: ALBUMIN 2.5 g/dL (3.4-5.0); ALKALINE PHOSPHATASE 62 U/L (30-120); ALT (SGPT) 27 U/L (10-68); BILIRUBIN - TOTAL 0.52 mg/dL (0.2-1.3); CALC OSMOLALITY 296 mosm/kg (275-300); CALCIUM 8.1 mg/dL (8.5-10.1); CARBON DIOXIDE 39.6 mmol/L (21.0-32.0); CHLORIDE - SERUM 104 mmol/L (98-107); CREATININE - SERUM 0.9 mg/dL (0.6-1.3); GLUCOSE 170 mg/dL (74-106); POTASSIUM - SERUM 4.2 mmol/L (3.5-5.1); PROTEIN - SERUM 5.6 g/dL (6.4-8.2); SODIUM 143 mmol/L (136-145); UREA NITROGEN 34 mg/dL (7-18); eGFR NON AFRICAN AMERICAN > 90 mL/min (90-120)
[2019-03-05 08:20] VITALS: BP 123/82
--- NOTE | 2019-03-05 14:19 | NUR ---
NUTRITION F//U PT TOLERATING DIABETIC DIET. 100% INTAKE RECENT MEALS. WILL CONTINUE TO MONITOR PT PROGRESS. RD FOLLOWING
--- NOTE | 2019-03-05 17:38 | NUR ---
I have reviewed this patient and I concur with the Shift Assessment completed by the Licensed Practical Nurse today this shift.
[2019-03-05 17:53] VITALS: BP 114/57
[2019-03-05 18:08] VITALS: BP 148/71
--- NOTE | 2019-03-05 19:20 | NUR ---
PT SITTING UP IN BEDSIDE CHAIR, WITHOUT DISTRESS. AOX4. IV RIGHT AC SL. O2 3L/HFNC. REQUESTED AND GIVEN COFFEE. DENIES OTHER NEEDS. CL IN REACH, WILL CTM
[2019-03-05 21:05] VITALS: BP 107/60
--- NOTE | 2019-03-05 21:30 | NUR ---
FSBS 182, 8 UNITS GIVEN PER SS. 16 UNITS LANTUS GIVEN. PT ATE ALL HS SNACK. DENIES OTHER NEEDS. TRILOGY ON. CL IN REACH, WILL CTM
[2019-03-06 01:36] VITALS: BP 110/70
[2019-03-06 06:14] VITALS: BP 108/66
[2019-03-06 06:39] LABS: BASOPHILS 0.1 % (0-2); EOSINOPHILS 0.9 % (0-7); HEMOGLOBIN 13.6 g/dL (13.5-17.5); IMMATURE GRANULOCYTES 1.4 % (0-5); LYMPHOCYTES 23.8 % (15-50); MCH 28.5 pg (26.0-34.0); MCHC 30.2 g/dL (31.0-37.0); MCV 94.3 fL (80.0-100.0); MEAN PLATELET VOLUME 10.4 fL (7.4-10.4); MONOCYTES 9.5 % (2-11); NEUTROPHILS 64.3 % (40-80); PLATELET COUNT 237 10x3/uL (130-400); RBC 4.77 10x6/uL (4.20-6.10); RDW 15.2 % (11.5-14.5)
[2019-03-06 07:08] LABS: ALBUMIN 2.7 g/dL (3.4-5.0); ALKALINE PHOSPHATASE 66 U/L (30-120); ALT (SGPT) 30 U/L (10-68); BILIRUBIN - TOTAL 0.64 mg/dL (0.2-1.3); CALC OSMOLALITY 297 mosm/kg (275-300); CALCIUM 8.5 mg/dL (8.5-10.1); CHLORIDE - SERUM 103 mmol/L (98-107); GLUCOSE 154 mg/dL (74-106); POTASSIUM - SERUM 4.2 mmol/L (3.5-5.1); PROTEIN - SERUM 5.6 g/dL (6.4-8.2); SODIUM 144 mmol/L (136-145); UREA NITROGEN 35 mg/dL (7-18); eGFR NON AFRICAN AMERICAN 81 mL/min (90-120)
[2019-03-06 07:31] LABS: CARBON DIOXIDE 40.5 mmol/L (21.0-32.0)
--- NOTE | 2019-03-06 07:41 | NUR ---
PATIENT SITTING UP IN CHAIR. NO NEEDS AT THIS TIME. CL IN REACH. WCTM
[2019-03-06 09:31] VITALS: BP 122/74
[2019-03-06 14:04] VITALS: BP 124/66
--- NOTE | 2019-03-06 14:13 | NUR ---
I have reviewed this patient and I concur with the Shift Assessment completed by the Licensed Practical Nurse today this shift.
--- NOTE | 2019-03-06 14:44 | NUR ---
patient sitting in chair with feet up per Dr. Escobar. cl in reach. given tums and milk for acid reflux. wctm
[2019-03-06 15:57] VITALS: BP 122/71
[2019-03-06 21:51] VITALS: BP 131/75
--- NOTE | 2019-03-07 00:31 | NUR ---
PT RESTING IN BED. EYES CLOSED. NO SIGNS OF DISTRESS. BREATHING EVEN AND UNLABORED. IV SITE RT AC DRESSING CLEAN DRY AND INTACT. NO SIGNS OF INFECTION OR INFULTRATION. BOWEL SOUNDS ACTIVE. LUNG SOUNDS DIMINISHED. 3LO2 HIGH FLOW NASAL CANNULA. GENERLIZED EDEMA ARMS AND LEGS. TELE MONITOR ON 67 SINUS WITH PVC. WILL CONTINUE PLAN OF CARE. CALL LIGHT IN REACH. BED LOWERED AND LOCKED. BED RAILS UPX1.
[2019-03-07 01:27] VITALS: BP 117/68
[2019-03-07 06:10] VITALS: BP 104/67
[2019-03-07 06:21] LABS: BASOPHILS 0.1 % (0-2); EOSINOPHILS 1.2 % (0-7); HEMOGLOBIN 14.1 g/dL (13.5-17.5); IMMATURE GRANULOCYTES 1.6 % (0-5); LYMPHOCYTES 23.2 % (15-50); MCH 28.6 pg (26.0-34.0); MCHC 30.7 g/dL (31.0-37.0); MCV 93.3 fL (80.0-100.0); MONOCYTES 10.2 % (2-11); NEUTROPHILS 63.7 % (40-80); PLATELET COUNT 255 10x3/uL (130-400); RBC 4.93 10x6/uL (4.20-6.10); RDW 15.3 % (11.5-14.5); WBC 11.3 10x3/uL (4.8-10.8)
[2019-03-07 06:52] LABS: ALBUMIN 2.8 g/dL (3.4-5.0); ANION GAP 9.7 mmol/L (8-16); BILIRUBIN - TOTAL 0.52 mg/dL (0.2-1.3); CALCIUM 8.7 mg/dL (8.5-10.1); CREATININE - SERUM 1.1 mg/dL (0.6-1.3); POTASSIUM - SERUM 3.7 mmol/L (3.5-5.1); PROTEIN - SERUM 6.3 g/dL (6.4-8.2)
[2019-03-07 08:27] VITALS: BP 111/67
--- NOTE | 2019-03-07 10:10 | NUR ---
PATIENT SITTING UP IN CHAIR. FRESH WATER AND COFFEE PROVIDED. CL IN REACH. NO NEEDS AT THIS TIME. WCTM
[2019-03-07 11:57] VITALS: BP 89/62
[2019-03-07 15:14] VITALS: BP 92/42
--- NOTE | 2019-03-07 15:19 | NUR ---
PATIENT RESTING ROOM AIR SP02 92% PATIENT AMBULATED IN HALLWAY WITH RT AND PHYSICAL THERAPY AND ROOM AIR AMBULATING SP02 95%
--- NOTE | 2019-03-07 15:22 | MORECARE ---
CASE MANAGEMENT DISCHARGE SUMMARY PATIENT: SAMANTHA PAN JR UNIT: [id number] ADM DATE: 02/24/19 AGE: 58 : 56 SEX: M ROOM/BED: D.2220 AUTHOR: ELKIN,DOC PHYSICIAN: REFERRING PHYSICIAN: CHENTE CADENA DO DATE OF SERVICE: 03/07/19 Discharge Plan Patient Name: SAMANTHA PAN Facility: [facility]:[place] : 1960 Planned Disposition: Home Health Service Anticipated Discharge Date: 02/27/19 Discharge Date: Expected LOS: 3 Initial Reviewer: [id number] Initial Review Date: 02/24/2019 Generated: 03/07/19 4:21 pm Comments DCP- Discharge Planning Updated by [email or web address]: Radha Waddell on 03/07/19 2:[address] RESP WALKED THE PATIENT WITH O2 AND HIS POX DID NOT DROP BELOW 91%. HE MAINTAINED HIS POX 95% WALKING 250FT. HE WILL NOT QUALIFY FOR HOME O2 AT THIS TIME DCP- Discharge Planning Updated by [id number]: Radha Waddell on 03/04/19 3:[address] MORGAN WITH [facility] HAS CAME AND SET UP THE PATIENTS TRILIOGY DCP- Discharge Planning Updated by [email or web address]: Radha Waddell on 03/03/19 2:[address] SPOKE WITH PATIENT ABOUT HOME HEALTH AND O2, SHE USES [facility] FOR HIS CPAP, BUT PULM STATES HE NEEDS A BIPAP/TRILIOGY. I HAVE CALLED [facility] AND SPOKE WITH MORGAN. PATIENT WILL NEED A ABG ABD WALK TEST PRIOR TO DC. HE WOULD LIKE TO HAVE HOME HEALTH. HE HAS SENIOR HELPERS. CM WILL CONTINUE TO FOLLOW AND ASSIST TO GET THE PATIENT HOME O2 AND TRILIOGY. DCP- Discharge Planning Updated by [email or web address]: Marielle Gracia on 02/27/19 3:[address] CM spoke with patient about potentially going to [facility] for Inpatient rehab . Patient refused but said he might be interested in Home Health. Then patient declined to sign a SAMEER or declination at this time. Patient seems somewhat confused at this time. CM will revisit at a later time to check status of rehab v/s home health. Patient only has Medicaid so [facility] is the only possibility that is only if he will have days available. CM will continue to follow and assist as needed with discharge planning / needs DCP- Discharge Planning Updated by [email or web address]: Geovanna Goldberg on 02/24/19 1:[address] DC PLAN: Rehab vs home health ANTICIPATED DC NEEDS: may need rehab or hh according to Watson (Friend) CM met with patient to complete initial dc planning assessment. He was on CPAP and confused, unable to answer questions at this time. CM contacted contact on facesheet Watson Darby, , who gave consent to complete assessment. CM verified patient's address, phone number, and emergency contact phone numbers. Patient lives at [facility] alone, and has been doing well on his own unitl the past few days. He lives alone. He does have a house keeper that was coming 4x week to assist with grocery shopping and house cleaning. Watson is not sure she still comes 4x week. Watson reports the patient has become increasingly weak and requiring more assistance. Watson drove him to his doctors appointment today in [place] and his PCP called an ambulance to bring him to the ER. CM discussed availability of home health, rehab services, and medical equipment. Watson feels that he will need assistance at dc rehab or home health. Patient unable at this time to sign SAMEER or even agree to assistance at dc. Transportation provider at discharge will be Watson if he is able to dc home. CM will continue to follow and will assist as needed with dc plans/needs. Geovanna Goldberg RN, [facility] DCPIA - Discharge Planning Initial Assessment Updated by [email or web address]: Geovanna Goldberg on 02/24/19 2:30 pm * Is the patient Alert and Oriented? No * How many steps to enter\exit or inside your home? elevator * PCP Dr. Urbina * Pharmacy [facility] on [address] * Preadmission Environment Home Alone * ADLs Independent * Equipment Cane CPAP Rolling Walker Wheelchair * List name and contact numbers for known caregivers / representatives who currently or will assist patient after discharge: Watson Darby - friend - [phone] * Verbal permission to speak to the caregivers and representatives has been obtained from the patient. Yes * Community resources currently utilized Other * Please name any agencies selected above. has a house keeper that was coming 4 x week that gets his groceries for him. * Additional services required to return to the preadmission environment? Yes * Can the patient safely return to the preadmission environment? Yes * Has this patient been hospitalized within the prior 30 days at any hospital? No Last DP export: 03/04/19 4:01 p Patient Name: SAMANTHA PAN Page [id number] at 1522 All edits/amendments must be made on the electronic document DICTATION DATE: 03/07/19 1521 ART DEPARTMENT HEAD: DM 03/07/19 1521 RPT#: [id number] DC DATE: STATUS: ADM IN [facility] [address] [place] [address] END OF REPORT
--- NOTE | 2019-03-07 19:15 | NUR ---
BEDSIDE REPORT RECEIVED IN PATIENT ROOM. PATIENT ALLOWED SUKH VELAZQUEZ AND THIS NURSE TO DISCUSS CARE IN ROOM WITH PATIENT. PATIENT ALERT AND ORIENTED. PERRLA BILATERALLY. RANGE OF MOTION WEAK IN BILATERAL UPPER AND LOWER EXTREMETIES. BILATERL LOWER EXTREMETY EDEMA 2+. DISTENDED ABDOMEN WITH ACTIVE BOWEL SOUNDS IN ALL FOUR QUADRANTS. LUNG SOUNDS DIMINISHED BUT CLEAR BILATERALLY. HEART SOUNDS EQUAL. COMPLAINS OF HEART BURN. DENIES FURTHER NEEDS. CURRENTLY NOT WEARING O2. NO SIGNS OR SYMPTOMS OF RESPIRATORY DISTRESS AT THIS TIME. CALL LIGHT IN REACH. CPOC.
[2019-03-07 20:00] VITALS: BP 100/60
--- NOTE | 2019-03-07 20:34 | NUR ---
ADMINISTERED HS MEDICATIONS THAT INCLUDE SOTALOL AND CARDIZEM. ASSESSED PATIENT HEART RATE FOR SEVERAL MINUTES WITH PERSONAL PULSE OX MONITOR. PATIENT HEART RATE STABLE AT 85. ADMINISTERED MEDICATIONS. PATIENT TOLERATED WELL. NO FURTHER NEEDS AT THIS TIME. CPOC.
[2019-03-08] VITALS: BP 106/61
--- NOTE | 2019-03-08 01:30 | NUR ---
PATIENT REFUSED LASIX AND FLUIDS
--- NOTE | 2019-03-08 03:50 | NUR ---
I have reviewed this patient and I concur with the Shift Assessment completed by the Licensed Practical Nurse today this shift.
[2019-03-08 04:00] VITALS: BP 113/66
[2019-03-08 05:41] LABS: BASOPHILS 0.2 % (0-2); EOSINOPHILS 1.2 % (0-7); HEMATOCRIT 43.3 % (42.0-54.0); HEMOGLOBIN 13.3 g/dL (13.5-17.5); IMMATURE GRANULOCYTES 1.6 % (0-5); LYMPHOCYTES 23.8 % (15-50); MCH 28.8 pg (26.0-34.0); MCHC 30.7 g/dL (31.0-37.0); MCV 93.7 fL (80.0-100.0); MEAN PLATELET VOLUME 10.8 fL (7.4-10.4); MONOCYTES 10.3 % (2-11); NEUTROPHILS 62.9 % (40-80); PLATELET COUNT 261 10x3/uL (130-400); RBC 4.62 10x6/uL (4.20-6.10); RDW 15.5 % (11.5-14.5); WBC 10.7 10x3/uL (4.8-10.8)
[2019-03-08 06:03] LABS: ALBUMIN 2.5 g/dL (3.4-5.0); ANION GAP 8.1 mmol/L (8-16); BILIRUBIN - TOTAL 0.49 mg/dL (0.2-1.3); CALCIUM 8.5 mg/dL (8.5-10.1); CARBON DIOXIDE 36.7 mmol/L (21.0-32.0); CREATININE - SERUM 1.3 mg/dL (0.6-1.3); POTASSIUM - SERUM 3.8 mmol/L (3.5-5.1); PROTEIN - SERUM 5.9 g/dL (6.4-8.2)
--- NOTE | 2019-03-08 08:00 | NUR ---
ASSESSMENT PER FLOW SHEET. PT IS WITHOUT DISTRESS.HE HAS BEEN UP AND NOW IS IN CHAIR. DENIES NEEDS.CALL LIGHT IN REACH
[2019-03-08 08:52] VITALS: BP 114/66
[2019-03-08 13:06] VITALS: BP 128/71
[2019-03-08] MEDS ORDERED: COREG6.25 MG PO (14:13)
[2019-03-08] MEDS ORDERED: CARDIZEM 90 MG90 MG PO (14:13)
[2019-03-08] MEDS ORDERED: PREDNISONE10 MG PO (14:16)
[2019-03-08] MEDS ORDERED: LEVAQUIN750 MG PO (14:19)
[2019-03-08] MEDS ORDERED: ALBUTEROL SULF8.5 GM INH (14:19)
--- NOTE | 2019-03-08 15:19 | MORECARE ---
CASE MANAGEMENT DISCHARGE SUMMARY PATIENT: SAMANTHA PAN JR UNIT: [id number] ADM DATE: 02/24/19 AGE: 58 : 56 SEX: M ROOM/BED: D.2220 AUTHOR: ELKIN,DOC PHYSICIAN: REFERRING PHYSICIAN: CHENTE CADENA DO DATE OF SERVICE: 03/08/19 Discharge Plan Patient Name: SAMANTHA PAN Facility: [facility]:[place] : 1960 Planned Disposition: Home Health Service Anticipated Discharge Date: 02/27/19 Discharge Date: Expected LOS: 3 Initial Reviewer: [email or web address] Initial Review Date: 02/24/2019 Generated: 03/08/19 4:18 pm Comments DCP- Discharge Planning Updated by [id number]: Radha Waddell on 03/07/19 2:[address] RESP WALKED THE PATIENT WITH O2 AND HIS POX DID NOT DROP BELOW 91%. HE MAINTAINED HIS POX 95% WALKING 250FT. HE WILL NOT QUALIFY FOR HOME O2 AT THIS TIME DCP- Discharge Planning Updated by [id number]: Radha Waddell on 03/04/19 3:[address] MORGAN WITH [facility] HAS CAME AND SET UP THE PATIENTS TRILIOGY DCP- Discharge Planning Updated by [email or web address]: Radha Waddell on 03/03/19 2:[address] SPOKE WITH PATIENT ABOUT HOME HEALTH AND O2, SHE USES [facility] FOR HIS CPAP, BUT PULM STATES HE NEEDS A BIPAP/TRILIOGY. I HAVE CALLED [facility] AND SPOKE WITH MORGAN. PATIENT WILL NEED A ABG ABD WALK TEST PRIOR TO DC. HE WOULD LIKE TO HAVE HOME HEALTH. HE HAS SENIOR HELPERS. CM WILL CONTINUE TO FOLLOW AND ASSIST TO GET THE PATIENT HOME O2 AND TRILIOGY. DCP- Discharge Planning Updated by [id number]: Marielle Gracia on 02/27/19 3:[address] CM spoke with patient about potentially going to [facility] for Inpatient rehab . Patient refused but said he might be interested in Home Health. Then patient declined to sign a SAMEER or declination at this time. Patient seems somewhat confused at this time. CM will revisit at a later time to check status of rehab v/s home health. Patient only has Medicaid so [facility] is the only possibility that is only if he will have days available. CM will continue to follow and assist as needed with discharge planning / needs DCP- Discharge Planning Updated by [id number]: Geovanna Goldberg on 02/24/19 1:[address] DC PLAN: Rehab vs home health ANTICIPATED DC NEEDS: may need rehab or hh according to Watson (Friend) CM met with patient to complete initial dc planning assessment. He was on CPAP and confused, unable to answer questions at this time. CM contacted contact on facesheet Watson Darby, , who gave consent to complete assessment. CM verified patient's address, phone number, and emergency contact phone numbers. Patient lives at [facility] alone, and has been doing well on his own unitl the past few days. He lives alone. He does have a house keeper that was coming 4x week to assist with grocery shopping and house cleaning. Watson is not sure she still comes 4x week. Watson reports the patient has become increasingly weak and requiring more assistance. Watson drove him to his doctors appointment today in [employer] and his PCP called an ambulance to bring him to the ER. CM discussed availability of home health, rehab services, and medical equipment. Watson feels that he will need assistance at dc rehab or home health. Patient unable at this time to sign SAMEER or even agree to assistance at dc. Transportation provider at discharge will be Watson if he is able to dc home. CM will continue to follow and will assist as needed with dc plans/needs. Geovanna Goldberg RN, [facility] DCPIA - Discharge Planning Initial Assessment Updated by [email or web address]: Geovanna Goldberg on 02/24/19 2:30 pm * Is the patient Alert and Oriented? No * How many steps to enter\exit or inside your home? elevator * PCP Dr. Urbina * Pharmacy [facility] on [address] * Preadmission Environment Home Alone * ADLs Independent * Equipment Cane CPAP Rolling Walker Wheelchair * List name and contact numbers for known caregivers / representatives who currently or will assist patient after discharge: Watson Darby - friend - [phone] * Verbal permission to speak to the caregivers and representatives has been obtained from the patient. Yes * Community resources currently utilized Other * Please name any agencies selected above. has a house keeper that was coming 4 x week that gets his groceries for him. * Additional services required to return to the preadmission environment? Yes * Can the patient safely return to the preadmission environment? Yes * Has this patient been hospitalized within the prior 30 days at any hospital? No External Providers External Provider: [facility] Next Contact Date: Service Request Date: Service Type: Resolution: Reviewer: Comments: Coverage Notice Reviewer: [email or web address] Kain Gracia Notice Issued Date-Time: 03/08/2019 14:45 Notice Type: Patient Choice Letter Notice Delivered To: Patient Relationship to Patient: Self Manager Logistic Name: Delivery Method: HAND - Hand Delivered Cyndy Days: Prior Verbal Notification: Recipient Understood Notice: Yes Recipient Signature: Yes Med Rec Note Co-signed by Attending: Coverage Notice Comment: [facility] Last DP export: 03/07/19 2:22 p Patient Name: SAMANTHA PAN Page [id number] at 1519 All edits/amendments must be made on the electronic document DICTATION DATE: 03/08/19 1518 CLIENT APPLICATION SUPPORT ENGINEER: DM 03/08/19 1518 RPT#: [id number] DC DATE: STATUS: ADM IN [facility] [address] [place] [address] END OF REPORT
--- NOTE | 2019-03-08 15:34 | MORECARE ---
CASE MANAGEMENT DISCHARGE SUMMARY PATIENT: SAMANTHA PAN JR UNIT: [id number] ADM DATE: 02/24/19 AGE: 58 : 56 SEX: M ROOM/BED: D.2220 AUTHOR: ELKIN,DOC PHYSICIAN: REFERRING PHYSICIAN: CHENTE CADENA DO DATE OF SERVICE: 03/08/19 Discharge Plan Patient Name: SAMANTHA PAN Facility: [facility]:[place] : 1960 Planned Disposition: Home Health Service Anticipated Discharge Date: 02/27/19 Discharge Date: Expected LOS: 3 Initial Reviewer: [email or web address] Initial Review Date: 02/24/2019 Generated: 03/08/19 4:33 pm Comments DCP- Discharge Planning Updated by [email or web address]: Marielle Gracia on 03/08/19 2:[address] CM spoke with patient regarding Home Health SAMEER signed for [facility]. CM called [facility] and spoke with Francesca (nurse irrigation engineer) about referral and faxed records to office. Francesca stated that they would be out to admit on Sunday. CM informed patient of this and gave patient a pamphlet on [facility] with number to call if needed. Patient stated that he would have his brother come to help him get his trilogy and things home but he stated his van is in the parking lot. CM will continue to follow and assist as needed with discharge planning / needs. DCP- Discharge Planning Updated by [id number]: Radha Waddell on 03/07/19 2:[address] RESP WALKED THE PATIENT WITH O2 AND HIS POX DID NOT DROP BELOW 91%. HE MAINTAINED HIS POX 95% WALKING 250FT. HE WILL NOT QUALIFY FOR HOME O2 AT THIS TIME DCP- Discharge Planning Updated by [id number]: Radha Waddell on 03/04/19 3:[address] MORGAN WITH [facility] HAS CAME AND SET UP THE PATIENTS TRILIOGY DCP- Discharge Planning Updated by [id number]: Radha Waddell on 03/03/19 2:[address] SPOKE WITH PATIENT ABOUT HOME HEALTH AND O2, SHE USES [facility] FOR HIS CPAP, BUT PULM STATES HE NEEDS A BIPAP/TRILIOGY. I HAVE CALLED [facility] AND SPOKE WITH MORGAN. PATIENT WILL NEED A ABG ABD WALK TEST PRIOR TO DC. HE WOULD LIKE TO HAVE HOME HEALTH. HE HAS SENIOR HELPERS. CM WILL CONTINUE TO FOLLOW AND ASSIST TO GET THE PATIENT HOME O2 AND TRILIOGY. DCP- Discharge Planning Updated by [id number]: Marielle Gracia on 02/27/19 3:[address] CM spoke with patient about potentially going to [facility] for Inpatient rehab . Patient refused but said he might be interested in Home Health. Then patient declined to sign a SAMEER or declination at this time. Patient seems somewhat confused at this time. CM will revisit at a later time to check status of rehab v/s home health. Patient only has Medicaid so [facility] is the only possibility that is only if he will have days available. CM will continue to follow and assist as needed with discharge planning / needs DCP- Discharge Planning Updated by [id number]: Geovanna Goldberg on 02/24/19 1:[address] DC PLAN: Rehab vs home health ANTICIPATED DC NEEDS: may need rehab or hh according to Watson (Friend) CM met with patient to complete initial dc planning assessment. He was on CPAP and confused, unable to answer questions at this time. CM contacted contact on facesheet Watson Darby, , who gave consent to complete assessment. CM verified patient's address, phone number, and emergency contact phone numbers. Patient lives at [facility] alone, and has been doing well on his own unitl the past few days. He lives alone. He does have a house keeper that was coming 4x week to assist with grocery shopping and house cleaning. Watson is not sure she still comes 4x week. Watson reports the patient has become increasingly weak and requiring more assistance. Watson drove him to his doctors appointment today in [place] and his PCP called an ambulance to bring him to the ER. CM discussed availability of home health, rehab services, and medical equipment. Watson feels that he will need assistance at dc rehab or home health. Patient unable at this time to sign SAMEER or even agree to assistance at dc. Transportation provider at discharge will be Watson if he is able to dc home. CM will continue to follow and will assist as needed with dc plans/needs. Geovanna Goldberg RN, [facility] DCPIA - Discharge Planning Initial Assessment Updated by [email or web address]: Geovanna Goldberg on 02/24/19 2:30 pm * Is the patient Alert and Oriented? No * How many steps to enter\exit or inside your home? elevator * PCP Dr. Urbina * Pharmacy [facility] on [address] * Preadmission Environment Home Alone * ADLs Independent * Equipment Cane CPAP Rolling Walker Wheelchair * List name and contact numbers for known caregivers / representatives who currently or will assist patient after discharge: Watson Darby [facility] - [phone] * Verbal permission to speak to the caregivers and representatives has been obtained from the patient. Yes * Community resources currently utilized Other * Please name any agencies selected above. has a house keeper that was coming 4 x week that gets his groceries for him. * Additional services required to return to the preadmission environment? Yes * Can the patient safely return to the preadmission environment? Yes * Has this patient been hospitalized within the prior 30 days at any hospital? No Coverage Notice Reviewer: [id number] Kain Gracia Notice Issued Date-Time: 03/08/2019 14:45 Notice Type: Patient Choice Letter Notice Delivered To: Patient Relationship to Patient: Self Lie Detector Operator Name: Delivery Method: HAND - Hand Delivered Cyndy Days: Prior Verbal Notification: Recipient Understood Notice: Yes Recipient Signature: Yes Med Rec Note Co-signed by Attending: Coverage Notice Comment: [facility] Reviewer: [email or web address] Kain Gracia Notice Issued Date-Time: 03/03/2019 12:00 Notice Type: Patient Choice Letter Notice Delivered To: Patient Relationship to Patient: Self Lie Detector Operator Name: Delivery Method: HAND - Hand Delivered Cyndy Days: Prior Verbal Notification: Recipient Understood Notice: Yes Recipient Signature: Yes Med Rec Note Co-signed by Attending: Coverage Notice Comment: [facility] Last DP export: 03/08/19 2:18 pm Patient Name: SAMANTHA PAN Page [id number] at 1534 All edits/amendments must be made on the electronic document DICTATION DATE: 03/08/19 1533 ACCOUNT PROCESSOR: GILMA 03/08/19 1533 RPT#: [id number] DC DATE: STATUS: ADM IN [facility] [address] [facility] [place] [address] END OF REPORT
--- NOTE | 2019-03-08 15:57 | NUR ---
IV DCD WITH CATH TIP INTACT. DISCHARGE INSTRUCTIONS. WAITING ON CAREGIVER TO ASSIST WITH GETTING HOME.
[2019-03-08 16:44] VITALS: BP 104/64
--- NOTE | 2019-03-08 18:11 | NUR ---
RIDE HERE. LEFT UNIT VIA WHEELCHAIR FOR TRANSPORT HOME
--- NOTE | 2019-03-09 14:26 | MORECARE ---
CASE MANAGEMENT DISCHARGE SUMMARY PATIENT: SAMANTHA PAN JR UNIT: [id number] ADM DATE: 02/24/19 AGE: 58 : 56 SEX: M ROOM/BED: D.2220 AUTHOR: ELKIN,DOC PHYSICIAN: REFERRING PHYSICIAN: CHENTE CADENA DO DATE OF SERVICE: 03/09/19 Discharge Plan Patient Name: SAMANTHA PAN Facility: [facility]:[place] : 1960 Planned Disposition: Home Health Service Anticipated Discharge Date: 02/27/19 Discharge Date: 03/08/2019 Expected LOS: 3 Initial Reviewer: [email or web address] Initial Review Date: 02/24/2019 Generated: 03/09/19 3:25 pm DCP- Discharge Planning Updated by [email or web address]: Marielle Gracia on 03/08/19 2:[address] CM spoke with patient regarding Home Health SAMEER signed for [facility]. CM called [facility] and spoke with Francesca (nurse information lead) about referral and faxed records to office. Francesca stated that they would be out to admit on Sunday. CM informed patient of this and gave patient a pamphlet on [facility] with number to call if needed. Patient stated that he would have his brother come to help him get his trilogy and things home but he stated his van is in the parking lot. CM will continue to follow and assist as needed with discharge planning / needs. DCP- Discharge Planning Updated by [id number]: Radha Waddell on 03/07/19 2:[address] RESP WALKED THE PATIENT WITH O2 AND HIS POX DID NOT DROP BELOW 91%. HE MAINTAINED HIS POX 95% WALKING 250FT. HE WILL NOT QUALIFY FOR HOME O2 AT THIS TIME DCP- Discharge Planning Updated by [email or web address]: Radha Waddell on 03/04/19 3:[address] MORGAN WITH [facility] HAS CAME AND SET UP THE PATIENTS TRILIOGY DCP- Discharge Planning Updated by [email or web address]: Radha Waddell on 03/03/19 2:[address] SPOKE WITH PATIENT ABOUT HOME HEALTH AND O2, SHE USES [facility] FOR HIS CPAP, BUT PULM STATES HE NEEDS A BIPAP/TRILIOGY. I HAVE CALLED [facility] AND SPOKE WITH MORGAN. PATIENT WILL NEED A ABG ABD WALK TEST PRIOR TO DC. HE WOULD LIKE TO HAVE HOME HEALTH. HE [facility]. CM WILL CONTINUE TO FOLLOW AND ASSIST TO GET THE PATIENT HOME O2 AND TRILIOGY. DCP- Discharge Planning Updated by [email or web address]: Marielle Gracia on 02/27/19 3:[address] CM spoke with patient about potentially going to [facility] for Inpatient rehab . Patient refused but said he might be interested in Home Health. Then patient declined to sign a SAMEER or declination at this time. Patient seems somewhat confused at this time. CM will revisit at a later time to check status of rehab v/s home health. Patient only has Medicaid so [facility] is the only possibility that is only if he will have days available. CM will continue to follow and assist as needed with discharge planning / needs DCP- Discharge Planning Updated by [email or web address]: Geovanna Goldberg on 02/24/19 1:[address] DC PLAN: Rehab vs home health ANTICIPATED DC NEEDS: may need rehab or hh according to Watson (Friend) CM met with patient to complete initial dc planning assessment. He was on CPAP and confused, unable to answer questions at this time. CM contacted contact on facesheet Watson Darby, , who gave consent to complete assessment. CM verified patient's address, phone number, and emergency contact phone numbers. Patient lives at [facility] alone, and has been doing well on his own unitl the past few days. He lives alone. He does have a house keeper that was coming 4x week to assist with grocery shopping and house cleaning. Watson is not sure she still comes 4x week. Watson reports the patient has become increasingly weak and requiring more assistance. Watson drove him to his doctors appointment today in [place] and his PCP called an ambulance to bring him to the ER. CM discussed availability of home health, rehab services, and medical equipment. Watson feels that he will need assistance at dc rehab or home health. Patient unable at this time to sign SAMEER or even agree to assistance at dc. Transportation provider at discharge will be Watson if he is able to dc home. CM will continue to follow and will assist as needed with dc plans/needs. Geovanna Goldberg RN, [facility] DCPIA - Discharge Planning Initial Assessment Updated by [email or web address]: Geovanna Glodberg on 02/24/19 2:30 pm * Is the patient Alert and Oriented? No * How many steps to enter\exit or inside your home? elevator * PCP Dr. Urbina * Pharmacy [facility] on [address] * Preadmission Environment Home Alone * ADLs Independent * Equipment Cane CPAP Rolling Walker Wheelchair * List name and contact numbers for known caregivers / representatives who currently or will assist patient after discharge: Watson Darby - [place] - [phone] * Verbal permission to speak to the caregivers and representatives has been obtained from the patient. Yes * Community resources currently utilized Other * Please name any agencies selected above. has a house keeper that was coming 4 x week that gets his groceries for him. * Additional services required to return to the preadmission environment? Yes * Can the patient safely return to the preadmission environment? Yes * Has this patient been hospitalized within the prior 30 days at any hospital? No Coverage Notice Reviewer: [id number] Kain Gracia Notice Issued Date-Time: 03/08/2019 14:45 Notice Type: Patient Choice Letter Notice Delivered To: Patient Relationship to Patient: Self Veneer Stock Layer Name: Delivery Method: HAND - Hand Delivered Cyndy Days: Prior Verbal Notification: Recipient Understood Notice: Yes Recipient Signature: Yes Med Rec Note Co-signed by Attending: Coverage Notice Comment: [facility] Reviewer: [id number] - Marielle Gracia Notice Issued Date-Time: 03/03/2019 12:00 Notice Type: Patient Choice Letter Notice Delivered To: Patient Relationship to Patient: Self Veneer Stock Layer Name: Delivery Method: HAND - Hand Delivered Cyndy Days: Prior Verbal Notification: Recipient Understood Notice: Yes Recipient Signature: Yes Med Rec Note Co-signed by Attending: Coverage Notice Comment: [facility] Last DP export: 03/08/19 2:34 pm Patient Name: SAMANTHA PAN Page [id number] at 1426 All edits/amendments must be made on the electronic document DICTATION DATE: 03/09/19 1420 RN ADVICE: GILMA 03/09/19 1425 RPT#: [id number] DC DATE:03/08/19 STATUS: DIS IN [facility] [address] [facility] [id number] [place] [address] END OF REPORT
== END 2019-03-08 18:11 | disposition home health service (06) | DRG 189 ==
LOC: D.ER 11:13 → D.ICU 13:21 → D.MS 02-28 13:01
PROVIDERS: Family Medicine; Internal Medicine Nephrology; Internal Medicine Pulmonary Disease; ADMIT Family Medicine; ATTEND Family Medicine
PROC: 5A09357 Assistance with Respiratory Ventilation, Less than 24 Consecutive Hours, Continuous Positive Airway Pressure (ICD-10-PCS; principal; 2019-02-24)
DX: J96.02 Acute respiratory failure with hypercapnia (principal); G93.41 Metabolic encephalopathy; J18.1 Lobar pneumonia, unspecified organism; E87.2 Acidosis; Z68.43 Body mass index [BMI] 50.0-59.9, adult; J44.1 Chronic obstructive pulmonary disease with (acute) exacerbation; N39.0 Urinary tract infection, site not specified; I25.10 Atherosclerotic heart disease of native coronary artery without angina pectoris; I10 Essential (primary) hypertension; E78.5 Hyperlipidemia, unspecified; E11.65 Type 2 diabetes mellitus with hyperglycemia; G47.33 Obstructive sleep apnea (adult) (pediatric); K21.9 Gastro-esophageal reflux disease without esophagitis; N40.0 Benign prostatic hyperplasia without lower urinary tract symptoms; F41.8 Other specified anxiety disorders; F12.90 Cannabis use, unspecified, uncomplicated; Z72.89 Other problems related to lifestyle; E66.01 Morbid (severe) obesity due to excess calories; M19.90 Unspecified osteoarthritis, unspecified site; I48.91 Unspecified atrial fibrillation; R00.0 Tachycardia, unspecified; J96.01 Acute respiratory failure with hypoxia; R53.81 Other malaise

== ENCOUNTER 2019-03-25 01:30 | Inpatient (IN) | payer MEDICAID ==
[~2019-03-25] VITALS: Ht 190.5 cm; Wt 168.7 kg
[~2019-03-25 01:30] MED LIST changes: +ALBUTEROL SULF8.5 GM INH; +CARDIZEM 90 MG90 MG PO; +COREG6.25 MG PO; +LEVAQUIN750 MG PO; +PREDNISONE10 MG PO
--- NOTE | 2019-03-25 01:50 | NUR ---
PT ARRIVED TO ED WITH 20G TO LEFT AC. THIS NURSE D/C'D IV D/T PAIN, UNABLE TO FLUSH. CATHETER INTACT, DRESSING APPLIED.
[2019-03-25 02:04] LABS: BASOPHILS 0.4 % (0-2); EOSINOPHILS 0.8 % (0-7); HEMATOCRIT 43.1 % (42.0-54.0); HEMOGLOBIN 13.6 g/dL (13.5-17.5); IMMATURE GRANULOCYTES 2.3 % (0-5); LYMPHOCYTES 36.8 % (15-50); MCH 28.6 pg (26.0-34.0); MCHC 31.6 g/dL (31.0-37.0); MCV 90.5 fL (80.0-100.0); MEAN PLATELET VOLUME 10.5 fL (7.4-10.4); NEUTROPHILS 46.7 % (40-80); RBC 4.76 10x6/uL (4.20-6.10); RDW 14.9 % (11.5-14.5); WBC 5.1 10x3/uL (4.8-10.8)
[2019-03-25 02:05] LABS: PLATELET COUNT 161 10x3/uL (130-400)
[2019-03-25 02:09] LABS: APTT 25.9 SECONDS (22.8-39.4); INR 1.01 (0.85-1.17); PROTIME 13.2 SECONDS (11.6-15.0)
[2019-03-25 02:10] LABS: D-DIMER-QUANTITATIVE 2.02 ug/mLFEU (0.20-0.54)
[2019-03-25 02:19] LABS: CALC OSMOLALITY 287 mosm/kg (275-300); CALCIUM 8.7 mg/dL (8.5-10.1); CARBON DIOXIDE 32.1 mmol/L (21.0-32.0); CHLORIDE - SERUM 101 mmol/L (98-107); CREATININE - SERUM 0.8 mg/dL (0.6-1.3); GLUCOSE 235 mg/dL (74-106); POTASSIUM - SERUM 4.4 mmol/L (3.5-5.1); SODIUM 139 mmol/L (136-145); UREA NITROGEN 19 mg/dL (7-18); eGFR NON AFRICAN AMERICAN > 90 mL/min (90-120)
[2019-03-25 02:25] LABS: ALKALINE PHOSPHATASE 71 U/L (30-120); ALT (SGPT) 21 U/L (10-68); BILIRUBIN - TOTAL 0.39 mg/dL (0.2-1.3); CKMB 0.9 U/L (0.0-3.6); CREATINE KINASE 53 UL (21-232); MAGNESIUM - SERUM 1.6 mg/dL (1.8-2.4); PRO BNP 2724 pg/mL (0-125); PROTEIN - SERUM 6.8 g/dL (6.4-8.2)
[2019-03-25 02:26] LABS: TROPONIN-I < 0.017 ng/mL (0.000-0.060)
--- NOTE | 2019-03-25 03:03 | NUR ---
RT CONTACTED TO ASSIST WITH TRANSPORT TO RADIOLOGY
--- NOTE | 2019-03-25 03:07 | NUR ---
PT LEFT ED VIA STRETCHER FOR CTA, RT AND RADIOLOGY AT SIDE. BIPAP IN PLACE
--- NOTE | 2019-03-25 03:25 | NUR ---
PT RETURNED FROM CT. PT RESTING IN ROOM.
[2019-03-25 06:00] VITALS: BP 153/95
[2019-03-25 07:00] VITALS: BP 149/89
[2019-03-25 07:32] VITALS: BP 155/86; BMI 34.4
[2019-03-25 09:38] VITALS: BMI 34.3
[2019-03-25 11:00] VITALS: BP 174/77
[2019-03-25 15:00] VITALS: BP 163/105
--- NOTE | 2019-03-25 17:45 | NUR ---
NEW PATIENT TRANSFER FROM ICU VIA WC. PATIENT IS AWAKE, ALERT AND ORIENTED X 4. PATIENT DENIES ANY NEEDS OR PAIN. PATIENT ORIENTED TO ROOM AND CALL LIGHT. PATIENT SITTING IN BS CHAIR WITH CALL LIGHT IN REACH.
--- NOTE | 2019-03-25 18:17 | MORECARE ---
CASE MANAGEMENT DISCHARGE SUMMARY PATIENT: SAMANTHA PAN JR UNIT: [id number] ADM DATE: 03/25/19 AGE: 58 : 56 SEX: M ROOM/BED: D.2109 AUTHOR: DIAZ GRANGER PHYSICIAN: REFERRING PHYSICIAN: RICCARDO PRIETO MD DATE OF SERVICE: 03/25/19 Discharge Plan Patient Name: SAMANTHA PAN [facility] [facility] 1960 Planned Disposition: Anticipated Discharge Date: Discharge Date: Expected LOS: Initial Reviewer: [email or web address] Initial Review Date: 03/25/2019 Generated: 03/25/19 7:16 pm Patient Name: SAMANTHA PAN Page [phone] at 1817 All edits/amendments must be made on the electronic document DICTATION DATE: 03/25/191815 JD EDWARDS: GILMA 03/25/191815 RPT#: [id number] DC DATE: STATUS: ADM IN [facility] [address] [place] [address] END OF REPORT
--- NOTE | 2019-03-25 18:24 | MORECARE ---
CASE MANAGEMENT DISCHARGE SUMMARY PATIENT: SAMANTHA PAN JR UNIT: [id number] ADM DATE: 03/25/19 AGE: 58 : 56 SEX: M ROOM/BED: D.2109 AUTHOR: DIAZ GRANGER PHYSICIAN: REFERRING PHYSICIAN: RICCARDO PRIETO MD DATE OF SERVICE: 03/25/19 Discharge Plan Patient Name: SAMANTHA PAN [facility] [facility] 1960 Planned Disposition: Anticipated Discharge Date: Discharge Date: Expected LOS: Initial Reviewer: [email or web address] Initial Review Date: 03/25/2019 Generated: 03/25/19 7:24 pm DCPIA - Discharge Planning Initial Assessment Updated by [email or web address]: Marielle Gracia on 03/25/19 6:18 pm * Is the patient Alert and Oriented? Yes * How many steps to enter\exit or inside your home? * PCP Tono JEONG * [facility] * Preadmission Environment Home Alone * ADLs Independent * Equipment BIPAP * List name and contact numbers for known caregivers / representatives who currently or will assist patient after discharge: SARAHY NAYLOR [facility] - [phone] * Verbal permission to speak to the caregivers and representatives has been obtained from the patient. Yes * Community resources currently utilized Home Health * Please name any agencies selected above. [facility] * Additional services required to return to the preadmission environment? No * Can the patient safely return to the preadmission environment? Yes * Has this patient been hospitalized within the prior 30 days at any hospital? Yes Last DP export: 03/25/19 5:17 p Patient Name: SAMANTHA PAN Page [phone] at 1824 All edits/amendments must be made on the electronic document DICTATION DATE: 03/25/191823 EYELET CUTTER: GILMA 03/25/191823 RPT#: [id number] DC DATE: STATUS: ADM IN [facility] [address] [place] [address] END OF REPORT
--- NOTE | 2019-03-25 18:33 | MORECARE ---
CASE MANAGEMENT DISCHARGE SUMMARY PATIENT: SAMANTHA PAN JR UNIT: [id number] ADM DATE: 03/25/19 AGE: 58 : 56 SEX: M ROOM/BED: D.2104 AUTHOR: ELKIN,DOC PHYSICIAN: REFERRING PHYSICIAN: RICCARDO PRIETO MD DATE OF SERVICE: 03/25/19 Discharge Plan Patient Name: SAMANTHA PAN Facility: [facility]:[place] : 1960 Planned Disposition: Anticipated Discharge Date: Discharge Date: Expected LOS: Initial Reviewer: [email or web address] Initial Review Date: 03/25/2019 Generated: 03/25/19 7:32 pm Comments DCP- Discharge Planning Updated by [email or web address]: Marielle Gracia on 03/25/19 5:[address] Patient Name: SAMANTHA PAN Admission Status: ER Accout number: [id number] Admission Date: 03-25-2019 : 1960 Admission Diagnosis: Attending: RICCARDO PRIETO Current LOS: 1 Anticipated DC Date: Planned Disposition: Primary Insurance: MEDICAID [place] Discharge Planning Comments: CM met with patient at bedside after explaining CM role and obtaining verbal consent. Patient lives at home alone where he is independent with his care and plans to return there upon discharge. Patient feels this would be a safe discharge. CM discussed availability / needs of home health and medical equipment. Patient has BiPap with [facility]. Patient states that he wants to continue with [facility] but is wanting stop care with [facility] and physical therapy. SAMEER and declination signed. Patient denies any discharge needs at this time. Patient states he will have his friend drive him home upon discharge. CM will continue to follow and assist as needed with discharge planning / needs. Education Reviewer: Marielle Gracia DCPIA - Discharge Planning Initial Assessment Updated by [email or web address]: Marielle Gracia on 03/25/19 6:18 pm * Is the patient Alert and Oriented? Yes * How many steps to enter\exit or inside your home? * PCP Tono JEONG * [facility] * Preadmission Environment Home Alone * ADLs Independent * Equipment BIPAP * List name and contact numbers for known caregivers / representatives who currently or will assist patient after discharge: SARAHY NAYLOR - [place] - [phone] * Verbal permission to speak to the caregivers and representatives has been obtained from the patient. Yes * Community resources currently utilized Home Health * Please name any agencies selected above. [facility] * Additional services required to return to the preadmission environment? No * Can the patient safely return to the preadmission environment? Yes * Has this patient been hospitalized within the prior 30 days at any hospital? Yes Coverage Notice Reviewer: [email or web address] Kain Gracia Notice Issued Date-Time: 03/25/2019 13:00 Notice Type: Patient Choice Letter Notice Delivered To: Patient Relationship to Patient: Leather Craftsman Name: Delivery Method: HAND - Hand Delivered Cyndy Days: Prior Verbal Notification: Recipient Understood Notice: Yes Recipient Signature: Yes Med Rec Note Co-signed by Attending: Coverage Notice Comment: resume services with [facility] stop services with [facility] Last DP export: 03/25/19 5:24 p Patient Name: SAMANTHA PAN Page [phone] at 1833 All edits/amendments must be made on the electronic document DICTATION DATE: 03/25/191831 WEB PRODUCTION MANAGER: GILMA 03/25/191831 RPT#: [id number] DC DATE: STATUS: ADM IN [facility] [address] [place] [address] END OF REPORT
--- NOTE | 2019-03-25 19:30 | NUR ---
REPORT RECEIVED, WILL CONTINUE POC. PATIENT IS AAOX4, SITTING UP IN CHAIR. NO S/S OF DISTRESS OBSERVED, RR EVEN AND UNLABORED ON 4L O2 VIA NC. PIV TO RT UPPER ARM, PATENT, SL, DRSG C/D/I. PATIENT DENIES NEEDS AT THIS TIME. CL IN REACH, BED LOCKED AND LOWERED. WILL CTM.
[2019-03-25 20:00] VITALS: BP 135/85
--- NOTE | 2019-03-26 03:27 | NUR ---
I have reviewed this patient and I concur with the Shift Assessment completed by the Licensed Practical Nurse today this shift.
--- NOTE | 2019-03-26 05:58 | NUR ---
PT REQUESTED BREATHING TREATMENT. RESP CALLED.
[2019-03-26 07:11] LABS: ALKALINE PHOSPHATASE 72 U/L (30-120); ALT (SGPT) 24 U/L (10-68); BILIRUBIN - TOTAL 0.34 mg/dL (0.2-1.3); CHLORIDE - SERUM 101 mmol/L (98-107); CKMB 1.8 U/L (0.0-3.6); CREATINE KINASE 32 UL (21-232); CREATININE - SERUM 0.9 mg/dL (0.6-1.3); GLUCOSE 253 mg/dL (74-106); POTASSIUM - SERUM 4.1 mmol/L (3.5-5.1); PROTEIN - SERUM 7.2 g/dL (6.4-8.2); SODIUM 145 mmol/L (136-145); eGFR NON AFRICAN AMERICAN > 90 mL/min (90-120)
[2019-03-26 07:15] LABS: CALC OSMOLALITY 302 mosm/kg (275-300); TROPONIN-I < 0.017 ng/mL (0.000-0.060); UREA NITROGEN 26 mg/dL (7-18)
[2019-03-26 07:18] LABS: CARBON DIOXIDE 40.1 mmol/L (21.0-32.0)
[2019-03-26 07:57] LABS: BASOPHILS 0.2 % (0-2); EOSINOPHILS 0 % (0-7); HEMATOCRIT 44.3 % (42.0-54.0); HEMOGLOBIN 13.6 g/dL (13.5-17.5); IMMATURE GRANULOCYTES 0.8 % (0-5); LYMPHOCYTES 16.3 % (15-50); MCH 28.8 pg (26.0-34.0); MCHC 30.7 g/dL (31.0-37.0); MEAN PLATELET VOLUME 10.1 fL (7.4-10.4); MONOCYTES 5.6 % (2-11); NEUTROPHILS 77.1 % (40-80); RBC 4.73 10x6/uL (4.20-6.10); RDW 14.8 % (11.5-14.5)
[2019-03-26 07:58] LABS: MCV 93.7 fL (80.0-100.0); PLATELET COUNT 278 10x3/uL (130-400); WBC 8.5 10x3/uL (4.8-10.8)
--- NOTE | 2019-03-26 08:00 | NUR ---
AM ROUNDS COMPLETED. INTRODUCED MYSELF TO PT PRIMARY RN FOR TODAYS SHIFT. PT IS A&O SITTING UP IN BED EATING BREAKFAST. SHIFT ASSESSMENT COMPLETED. PT STATES HE IS BREATHING MUCH BETTER OVERALL AND DENIES ANY CURRENT PAIN. RR NONLABORED WITH NC @4L IN PLACE. PT STATES HE NORMALLY DOESNT WEAR ANY OXYGEN SO WE WILL TRY TO WEAN HIM OFF. PTS LEFT SIDE LOBES HAVE EXPIRATORY WHEEZING THROUGHOUT ALL LOBES AND R.SIDE ARE CTA EXCEPT RLL SLIGHTLY DIMINISHED. PTS BILAT FEET ARE SWOLLEN WITH +2 PITTING EDEMA. PT STATES HE DOESNT TAKE DIURETICS BUT THINKS HE NEEDS THEM AND DOES HAVE DX OF CHF, WILL ELEVATE FOR NOW AND DISCUSS WITH PRIMARY. PTS R.AC PIV DRSG BEGINNING TO PEEL OFF, NEW TEGADERM APPLIED AND PIV IS SECURED WITH SWAB CAP IN USE. PT DENIES ANY CURRENT PAIN OR NEEDS AT THIS TIME. WILL REVIEW CHART AND ORDERS AND CPOC. CL IN REACH, BED IN LOWEST, SIDE RAILS X2.
[2019-03-26 08:25] VITALS: Ht 190.5 cm; Wt 168.7 kg
[2019-03-26 09:24] VITALS: BP 153/89
[2019-03-26 09:31] VITALS: BP 153/89
--- NOTE | 2019-03-26 11:38 | NUR ---
FSBS 356 PROVIDED PT WITH INSULIN PER SS. PT DOES TAKE ORAL DIABETIC MEDICATIONS THAT I NOTICED ARE CURRENTLY HELD SO THAT AND BEING ON STERIODS ARE PROBABLY THE REASON HE IS RUNNING SO HIGH LATELY. PT SITTING UP IN BED DOING HIS BREATHING TREATMENT. DENIES ANY CURRENT PAIN OR NEEDS AT THIS TIME. CL IN REACH. WILL CTM.
--- NOTE | 2019-03-26 13:00 | NUR ---
PT IS SUPPOSE TO BE A STRICT I&O AND STATES NOBODY TOLD HIM EVEN THOUGH HE IS CORE MEASURES ADMITTED WITH CHF AND THAT IS STANDARD LEVEL OF CARE. PROVIDED PT WITH URINAL AND HE VERBALIZED UNDERSTANDING TO USE AND ALLOW US TO RECORD. DAILY WEIGHTS ARE ALSO A REQUIREMENT AND I PLACED NOTE AND DISCUSSED WITH MY SLIVER FORMER. WILL CTM.
--- NOTE | 2019-03-26 17:13 | NUR ---
FSBS 346. PROVIDED PT WITH INSULIN PER SS. PT SITTING UP IN BED RESTING QUIETLY WATCHING TV. PT STATES HE HAS HAD A GOOD DAY OVERALL AND DENIES ANY CURRENT PAIN OR NEEDS.
--- NOTE | 2019-03-26 19:20 | NUR ---
REPORT RECEIVED, WILL CONTINUE POC. PATIENT IS AAOX4, SITTING UP IN BED. NO S/S OF DISTRESS OBSERVED, RR EVEN AND UNLABORED ON 4L O2 VIA NC. PIV TO RT UPPER ARM, PATENT, SL, DRSG C/D/I. PATIENT DENIES NEEDS AT THIS TIME. CL IN REACH, BED LOCKED AND LOWERED. WILL CTM.
[2019-03-26 20:00] VITALS: BP 161/86
[2019-03-27] VITALS (7 sets, daily range): BP systolic 136–151; BP diastolic 72–98
[2019-03-27 06:23] LABS: BASOPHILS 0.1 % (0-2); EOSINOPHILS 0 % (0-7); HEMATOCRIT 43.1 % (42.0-54.0); HEMOGLOBIN 13.3 g/dL (13.5-17.5); IMMATURE GRANULOCYTES 0.8 % (0-5); LYMPHOCYTES 11.6 % (15-50); MCH 28.9 pg (26.0-34.0); MCHC 30.9 g/dL (31.0-37.0); MCV 93.5 fL (80.0-100.0); MEAN PLATELET VOLUME 10.1 fL (7.4-10.4); MONOCYTES 5.4 % (2-11); NEUTROPHILS 82.1 % (40-80); PLATELET COUNT 289 10x3/uL (130-400); RBC 4.61 10x6/uL (4.20-6.10); RDW 14.9 % (11.5-14.5)
[2019-03-27 06:29] LABS: WBC 10.8 10x3/uL (4.8-10.8)
[2019-03-27 06:43] LABS: CALCIUM 8.6 mg/dL (8.5-10.1); CHLORIDE - SERUM 101 mmol/L (98-107); CREATININE - SERUM 0.9 mg/dL (0.6-1.3); GLUCOSE 282 mg/dL (74-106); MAGNESIUM - SERUM 1.8 mg/dL (1.8-2.4); PHOSPHOROUS 4.1 mg/dL (2.5-4.9); POTASSIUM - SERUM 4.2 mmol/L (3.5-5.1); SODIUM 145 mmol/L (136-145); eGFR NON AFRICAN AMERICAN > 90 mL/min (90-120)
[2019-03-27 06:44] LABS: CALC OSMOLALITY 306 mosm/kg (275-300); UREA NITROGEN 35 mg/dL (7-18)
[2019-03-27 06:45] LABS: CARBON DIOXIDE 40.8 mmol/L (21.0-32.0)
--- NOTE | 2019-03-27 07:27 | NUR ---
PT LAYING SUPINE, BREATHING TX IN PROGRESS. DENIES NEEDS OR PAIN AT THIS TIME. RR EVEN AND UNLABORED. BED IN LOWEST POSITION. CALL LIGHT WITHIN REACH. WILL CONTINUE TO MONITOR.
--- NOTE | 2019-03-27 11:45 | NUR ---
I have reviewed this patient and I concur with the Shift Assessment completed by the Licensed Practical Nurse today this shift.
--- NOTE | 2019-03-27 14:49 | NUR ---
Nutrition Follow-up: Eating well. Denies N/V/C/D. Diet: Diabetic Low Sodium PO intake: 100% No new wt; last wt: 275# (03/25) Last BM: 03/26 Labs noted: Na 145, Glu 282 Meds noted: Humulin, Lasix, KDur -Continue current diet as tolerated. -Need new wt; noted daily wts ordered. -RD following.
--- NOTE | 2019-03-27 16:28 | NUR ---
OT NOTE; PT COMPLETED UE AROM AXS. PT COMPLETED BED MOB WITH MIN A USING SIDE RAIL. PT COMPLETED UB HYGIENE WITH SETUP. [phone] THANK YOU,ALINE TIJERINA
--- NOTE | 2019-03-27 19:20 | NUR ---
REPORT RECEIVED, WILL CONTINUE POC. PATIENT IS AAOX4, SITTING UP IN CHAIR. NO S/S OF DISTRESS OBSERVED, RR EVEN AND UNLABORED ON 4L. PIV TO LT FA, PATENT, SL. PATIENT DENIES NEEDS AT THIS TIME. CL IN REACH, BED LOCKED AND LOWERED. WILL CTM.
--- NOTE | 2019-03-27 19:29 | NUR ---
IV INFILTRATED, RESTARTED X3 ATTEMPTS TO LEFT FOREARM, SL.
[2019-03-28 01:18] VITALS: BP 146/80
--- NOTE | 2019-03-28 03:46 | NUR ---
I have reviewed this patient and I concur with the Shift Assessment completed by the Licensed Practical Nurse today this shift.
[2019-03-28 04:42] VITALS: BP 150/105
--- NOTE | 2019-03-28 05:58 | NUR ---
PATIENT REFUSED BEING WEIGHED THIS AM. SAID, "I WEIGH 370LBS".
[2019-03-28 06:27] LABS: BASOPHILS 0.2 % (0-2); EOSINOPHILS 0 % (0-7); HEMOGLOBIN 13.6 g/dL (13.5-17.5); IMMATURE GRANULOCYTES 1.3 % (0-5); LYMPHOCYTES 13.8 % (15-50); MCH 28.9 pg (26.0-34.0); MCHC 30.9 g/dL (31.0-37.0); MCV 93.6 fL (80.0-100.0); MEAN PLATELET VOLUME 9.9 fL (7.4-10.4); MONOCYTES 9.6 % (2-11); NEUTROPHILS 75.1 % (40-80); PLATELET COUNT 294 10x3/uL (130-400); RDW 14.7 % (11.5-14.5); WBC 11.4 10x3/uL (4.8-10.8)
--- NOTE | 2019-03-28 06:39 | NUR ---
FSBS 173 PATIENT REFUSED INSULIN THIS AM
[2019-03-28 06:41] LABS: CALCIUM 8.4 mg/dL (8.5-10.1); CHLORIDE - SERUM 101 mmol/L (98-107); POTASSIUM - SERUM 3.8 mmol/L (3.5-5.1); SODIUM 145 mmol/L (136-145); UREA NITROGEN 42 mg/dL (7-18); eGFR NON AFRICAN AMERICAN 81 mL/min (90-120)
[2019-03-28 07:10] LABS: CALC OSMOLALITY 304 mosm/kg (275-300); GLUCOSE 181 mg/dL (74-106)
[2019-03-28 07:11] LABS: CARBON DIOXIDE 43.3 mmol/L (21.0-32.0)
[2019-03-28 08:00] VITALS: BP 150/108
[2019-03-28 12:00] VITALS: BP 123/54
--- NOTE | 2019-03-28 14:13 | NUR ---
OT NOTE: ATTEMPTED TO AMB WITH PT AND PERFORM A WALK TEST, HOWEVER, PTS RESTING 02 SATS WERE 85%...APPLIED 02 AT 3L AND ONLY IMPROVED TO 87%...WILL RE ATTEMPT LATER. MET WITH CM REGARDING READINGS. UNAABLE TO TOLERATE TMT AT THIS TIME KISHA SALGUERO, OTR/L [phone]
--- NOTE | 2019-03-28 15:39 | MORECARE ---
CASE MANAGEMENT DISCHARGE SUMMARY PATIENT: SAMANTHA PAN JR UNIT: [id number] ADM DATE: 03/25/19 AGE: 58 : 56 SEX: M ROOM/BED: D.3974 AUTHOR: ELKIN,DOC PHYSICIAN: REFERRING PHYSICIAN: RICCARDO PRIETO MD DATE OF SERVICE: 03/28/19 Discharge Plan Patient Name: SAMANTHA PAN Facility: [facility]:[place] : 1960 Planned Disposition: Home Anticipated Discharge Date: 03/28/19 Discharge Date: Expected LOS: 3 Initial Reviewer: [email or web address] Initial Review Date: 03/25/2019 Generated: 03/28/19 4:38 pm DCP- Discharge Planning Updated by [email or web address]: Marielle Gracia on 03/25/19 5:[address] Patient Name: SAMANTHA PAN Admission Status: ER Accout number: [id number] Admission Date: 03-25-2019 : 1960 Admission Diagnosis: Attending: RICCARDO PRIETO Current LOS: 1 Anticipated DC Date: Planned Disposition: Primary Insurance: MEDICAID [place] Discharge Planning Comments: CM met with patient at bedside after explaining CM role and obtaining verbal consent. Patient lives at home alone where he is independent with his care and plans to return there upon discharge. Patient feels this would be a safe discharge. CM discussed availability / needs of home health and medical equipment. Patient has BiPap with [facility]. Patient states that he wants to continue with [facility] but is wanting stop care with [facility] and physical therapy. SAMEER and declination signed. Patient denies any discharge needs at this time. Patient states he will have his friend drive him home upon discharge. CM will continue to follow and assist as needed with discharge planning / needs. Rougher Machine Operator: Marielle Gracia DCPIA - Discharge Planning Initial Assessment Updated by [id number]: Marielle Gracia on 03/25/19 6:18 pm * Is the patient Alert and Oriented? Yes * How many steps to enter\exit or inside your home? * PCP Tono JEONG * [facility]acy [facility] * Preadmission Environment Home Alone * ADLs Independent * Equipment BIPAP * List name and contact numbers for known caregivers / representatives who currently or will assist patient after discharge: SARAHY NAYLOR - [place] - [phone] * Verbal permission to speak to the caregivers and representatives has been obtained from the patient. Yes * Community resources currently utilized Home Health * Please name any agencies selected above. [facility] * Additional services required to return to the preadmission environment? No * Can the patient safely return to the preadmission environment? Yes * Has this patient been hospitalized within the prior 30 days at any hospital? Yes External Providers External Provider: [facility] Next Contact Date: 03/28/2019 Service Request Date: Service Type: Resolution: Reviewer: Comments: Coverage Notice Reviewer: [email or web address] Kain Gracia Notice Issued Date-Time: 03/25/2019 13:00 Notice Type: Patient Choice Letter Notice Delivered To: Patient Relationship to Patient: Breakfast Manager Name: Delivery Method: HAND - Hand Delivered Cyndy Days: Prior Verbal Notification: Recipient Understood Notice: Yes Recipient Signature: Yes Med Rec Note Co-signed by Attending: Coverage Notice Comment: resume services with [facility] stop services with [facility] Last DP export: 03/25/19 5:32 p Patient Name: SAMANTHA PAN Page [id number] at 1539 All edits/amendments must be made on the electronic document DICTATION DATE: 03/28/191537 COLLAR FOLDER OPERATOR: GILMA 03/28/191537 RPT#: [id number] DC DATE: STATUS: ADM IN [facility] [address] [place] [address] END OF REPORT
[2019-03-28 16:00] VITALS: BP 139/76
--- NOTE | 2019-03-28 16:43 | NUR ---
UP IN CHAIR WITH CALL LIGHT IN REACH. WILL MONITOR NEEDS.
--- NOTE | 2019-03-28 17:35 | MORECARE ---
CASE MANAGEMENT DISCHARGE SUMMARY PATIENT: SAMANTHA PAN JR UNIT: [id number] ADM DATE: 03/25/19 AGE: 58 : 56 SEX: M ROOM/BED: D.5836 AUTHOR: ELKIN,DOC PHYSICIAN: REFERRING PHYSICIAN: RICCARDO PRIETO MD DATE OF SERVICE: 03/28/19 Discharge Plan Patient Name: SAMANTHA PAN Facility: [facility]:[place] : 1960 Planned Disposition: Home Anticipated Discharge Date: 03/28/19 Discharge Date: Expected LOS: 3 Initial Reviewer: [id number] Initial Review Date: 03/25/2019 Generated: 03/28/19 6:35 pm DCP- Discharge Planning Updated by [id number]: Marielle Gracia on 03/25/19 5:[address] Patient Name: SAMANTHA PAN Admission Status: ER Accout number: [id number] Admission Date: 03-25-2019 : 1960 Admission Diagnosis: Attending: RICCARDO PRIETO Current LOS: 1 Anticipated DC Date: Planned Disposition: Primary Insurance: MEDICAID [place] Discharge Planning Comments: CM met with patient at bedside after explaining CM role and obtaining verbal consent. Patient lives at home alone where he is independent with his care and plans to return there upon discharge. Patient feels this would be a safe discharge. CM discussed availability / needs of home health and medical equipment. Patient has BiPap with [facility]. Patient states that he wants to continue with [facility] but is wanting stop care with [facility] and physical therapy. SAMEER and declination signed. Patient denies any discharge needs at this time. Patient states he will have his friend drive him home upon discharge. CM will continue to follow and assist as needed with discharge planning / needs. Institutional Nutrition Consultant: Marielle Gracia DCPIA - Discharge Planning Initial Assessment Updated by [id number]: Marielle Gracia on 03/25/19 6:18 pm * Is the patient Alert and Oriented? Yes * How many steps to enter\exit or inside your home? * PCP Tono JEONG * [facility] * Preadmission Environment Home Alone * ADLs Independent * Equipment BIPAP * List name and contact numbers for known caregivers / representatives who currently or will assist patient after discharge: SARAHY NAYLOR - [place] - [phone] * Verbal permission to speak to the caregivers and representatives has been obtained from the patient. Yes * Community resources currently utilized Home Health * Please name any agencies selected above. [facility] * Additional services required to return to the preadmission environment? No * Can the patient safely return to the preadmission environment? Yes * Has this patient been hospitalized within the prior 30 days at any hospital? Yes Coverage Notice Reviewer: [id number] Kain Gracia Notice Issued Date-Time: 03/25/2019 13:00 Notice Type: Patient Choice Letter Notice Delivered To: Patient Relationship to Patient: Television And Radio Repairer Name: Delivery Method: HAND - Hand Delivered Cyndy Days: Prior Verbal Notification: Recipient Understood Notice: Yes Recipient Signature: Yes Med Rec Note Co-signed by Attending: Coverage Notice Comment: resume services with [facility] stop services with [facility] Last DP export: 03/28/19 2:39 p Patient Name: SAMANTHA PAN Page [id number] at 1735 All edits/amendments must be made on the electronic document DICTATION DATE: 03/28/191734 GERIATRIC NURSING ASSISTANT: GILMA 03/28/191734 RPT#: [id number] DC DATE: STATUS: ADM IN [facility] [address] [place] [address] END OF REPORT
--- NOTE | 2019-03-28 17:43 | MORECARE ---
CASE MANAGEMENT DISCHARGE SUMMARY PATIENT: SAMANTHA PAN JR UNIT: [id number] ADM DATE: 03/25/19 AGE: 58 : 56 SEX: M ROOM/BED: D.2100 AUTHOR: ELKIN,DOC PHYSICIAN: REFERRING PHYSICIAN: RICCARDO PRIETO MD DATE OF SERVICE: 03/28/19 Discharge Plan Patient Name: SAMANTHA PAN Facility: [facility]:[place] : 1960 Planned Disposition: Home Anticipated Discharge Date: 03/28/19 Discharge Date: Expected LOS: 3 Initial Reviewer: [email or web address] Initial Review Date: 03/25/2019 Generated: 03/28/19 6:42 pm Comments DCP- Discharge Planning Updated by [email or web address]: Micky Silva on 03/28/19 4:[address] Patient Name: SAMANTHA PAN Encounter No: [id number] : 1960 Primary Insurance: MEDICAID [place] Anticipated DC Date: 03-28-2019 Planned Disposition: Home External Planned Provider: [facility] DCP follow-up note: CM RECEIVED ORDER FOR NEBLUIZER FROM [facility]. CM MET WITH PT IN ROOM TO DISCUSS DISCHARGE NEEDS AND PLANNING. CM DISCUSSED AVAILABILITY OF HOME HEALTH, REHAB SERVICES AND MEDICAL EQUIPMENT. PT WOULD LIKE MEDICAL EQUIPMENT FROM [facility]. PT REPORTS A "RELIGIOUS BROTHER" TO TRANSPORT HOME AT DISCHARGE. WALK TEST RECEIVED, PT QUALIFIES FOR OXYGEN. CM ASKED FOR WALK TEST ORDER, TESTING RECEIVED, PT QUALIFIES FOR HOME AND PORTABLE OXYGEN, OXYGEN ORDER OBTAINED. SHAKILA REQUESTED DR. LEWIS TO DOCUMENT THAT PT HAS TRIED AND FAILED INHALERS TO QUALIFY OF NEBULIZER; THIS IS REQUIRED BY [place] MEDICAID. SHAKILA CALLED [facility], , SPOKE TO NAINA AND PROVIDED REFERRAL INFORMATION. CM FAXED REFERRAL TO [facility], . NAINA ADVISED THEY WILL DELIVER PORTABLE OXYGEN TO HOSPITAL TODAY AND WILL ARRANGE HOME OXYGEN WHEN PT ARRIVES AT HOME AFTER DISCHARGE. DR. LEWIS WILL NEED TO DOCUMENT THAT INHALERS HAVE BEEN TRIED AND FAILED AND THIS NEEDS TO BE PROVIDED TO [facility] TO QUALFY PT FOR NEBULIZER. Micky Silva, CASE MANAGEMENT DCP- Discharge Planning Updated by [email or web address]: Marielle Gracia on 03/25/19 5:[address] Patient Name: SAMANTHA PAN Admission Status: ER Accout number: [id number] Admission Date: 03-25-2019 : 1960 Admission Diagnosis: Attending: RICCARDO PRIETO Current LOS: 1 Anticipated DC Date: Planned Disposition: Primary Insurance: MEDICAID [place] Discharge Planning Comments: CM met with patient at bedside after explaining CM role and obtaining verbal consent. Patient lives at home alone where he is independent with his care and plans to return there upon discharge. Patient feels this would be a safe discharge. CM discussed availability / needs of home health and medical equipment. Patient has BiPap with [facility]. Patient states that he wants to continue with [facility] but is wanting stop care with [facility] and physical therapy. SAMEER and declination signed. Patient denies any discharge needs at this time. Patient states he will have his friend drive him home upon discharge. CM will continue to follow and assist as needed with discharge planning / needs. Lens Coating Technician: Marielle Gracia DCPIA - Discharge Planning Initial Assessment Updated by [id number]: Marielle Gracia on 03/25/19 6:18 pm * Is the patient Alert and Oriented? Yes * How many steps to enter\\exit or inside your home? * PCP Tono JEONG * [facility] * Preadmission Environment Home Alone * ADLs Independent * Equipment BIPAP * List name and contact numbers for known caregivers / representatives who currently or will assist patient after discharge: SARAHY NAYLOR [facility] - [phone] * Verbal permission to speak to the caregivers and representatives has been obtained from the patient. Yes * Community resources currently utilized Home Health * Please name any agencies selected above. [facility] * Additional services required to return to the preadmission environment? No * Can the patient safely return to the preadmission environment? Yes * Has this patient been hospitalized within the prior 30 days at any hospital? Yes Coverage Notice Reviewer: [id number] - Marielle Gracia Notice Issued Date-Time: 03/25/2019 13:00 Notice Type: Patient Choice Letter Notice Delivered To: Patient Relationship to Patient: Hog Ribber Name: Delivery Method: HAND - Hand Delivered Cyndy Days: Prior Verbal Notification: Recipient Understood Notice: Yes Recipient Signature: Yes Med Rec Note Co-signed by Attending: Coverage Notice Comment: resume services with [facility] stop services with [facility] Last DP export: 03/28/19 4:35 p Patient Name: SAMANTHA PAN Page [phone] at 1743 All edits/amendments must be made on the electronic document DICTATION DATE: 03/28/191741 LEGAL ASSOCIATE: GILMA 03/28/191741 RPT#: [id number] DC DATE: STATUS: ADM IN [facility] [address] [place] [address] END OF REPORT
--- NOTE | 2019-03-28 20:10 | NUR ---
SITTING UP IN CHAIR AT BEDSIDE. RESP EVEN AND UNALBORED. NO DISTRESS NOTED.SL TO LFA INTACT WITHOUT REDNESS OR EDEMA NOTED. EDEMA TO BLL NOTE. NO COMPLAINTS VOICED. CL IN REACH
[2019-03-28 20:30] VITALS: BP 120/72
[2019-03-29 00:30] VITALS: BP 143/99
[2019-03-29 04:30] VITALS: BP 138/95
[2019-03-29 04:56] LABS: BASOPHILS 0.2 % (0-2); EOSINOPHILS 0 % (0-7); HEMATOCRIT 43.8 % (42.0-54.0); HEMOGLOBIN 13.4 g/dL (13.5-17.5); IMMATURE GRANULOCYTES 4.4 % (0-5); LYMPHOCYTES 22.2 % (15-50); MCH 28.4 pg (26.0-34.0); MCHC 30.6 g/dL (31.0-37.0); MCV 92.8 fL (80.0-100.0); MONOCYTES 10.3 % (2-11); NEUTROPHILS 62.9 % (40-80); PLATELET COUNT 272 10x3/uL (130-400); RBC 4.72 10x6/uL (4.20-6.10); RDW 14.5 % (11.5-14.5); WBC 9.9 10x3/uL (4.8-10.8)
[2019-03-29 05:24] LABS: CALC OSMOLALITY 301 mosm/kg (275-300); CALCIUM 8.8 mg/dL (8.5-10.1); CARBON DIOXIDE 38.9 mmol/L (21.0-32.0); CHLORIDE - SERUM 101 mmol/L (98-107); CREATININE - SERUM 0.9 mg/dL (0.6-1.3); GLUCOSE 160 mg/dL (74-106); POTASSIUM - SERUM 4.1 mmol/L (3.5-5.1); SODIUM 144 mmol/L (136-145); UREA NITROGEN 45 mg/dL (7-18); eGFR NON AFRICAN AMERICAN > 90 mL/min (90-120)
--- NOTE | 2019-03-29 06:52 | NUR ---
I have reviewed this patient and I concur with the Shift Assessment completed by the Licensed Practical Nurse today this shift.
[2019-03-29 08:00] VITALS: BP 147/105
--- NOTE | 2019-03-29 08:00 | NUR ---
PT SITTING UP IN CHAIR A/O X4. SOB ON EXCERTION. VSS. NO S/S OF DISTRESS. BED LOW CALL LIGHT WITHIN REACH. WILL CONTINUE TO MONITOR.
--- NOTE | 2019-03-29 13:46 | NUR ---
I have reviewed this patient and I concur with the Shift Assessment completed by the Licensed Practical Nurse today this shift.
[2019-03-29] MEDS ORDERED: BROVANA15 MCG/2 M INH (14:07)
[2019-03-29] MEDS ORDERED: ATROVENT 0.02%2.5 ML UPD (14:07)
[2019-03-29] MEDS ORDERED: PULMICORT0.5 MG/21 UPD (14:09)
[2019-03-29] MEDS ORDERED: TESSALON PERLE100 MG PO (14:09)
[2019-03-29] MEDS ORDERED: MUCINEX DM ER1 EAC1 PO (14:09)
[2019-03-29] MEDS ORDERED: SINGULAIR10 MG PO (14:09)
[2019-03-29] MEDS ORDERED: PREDNISONE10 MG PO (14:10)
--- NOTE | 2019-03-29 14:43 | MORECARE ---
CASE MANAGEMENT DISCHARGE SUMMARY PATIENT: SAMANTHA PAN JR UNIT: [id number] ADM DATE: 03/25/19 AGE: 58 : 56 SEX: M ROOM/BED: D.2106 AUTHOR: ELKIN,DOC PHYSICIAN: REFERRING PHYSICIAN: RICCARDO PRIETO MD DATE OF SERVICE: 03/29/19 Discharge Plan Patient Name: SAMANTHA PAN Facility: [facility]:[place] : 1960 Planned Disposition: Home Anticipated Discharge Date: 03/28/19 Discharge Date: Expected LOS: 3 Initial Reviewer: [id number] Initial Review Date: 03/25/2019 Generated: 03/29/19 3:42 pm Comments DCP- Discharge Planning Updated by [id number]: Urmila Rosas on 03/29/19 1:[address] Patient Name: SAMANTHA PAN Encounter No: [id number] : 1960 Primary Insurance: MEDICAID [place] Anticipated DC Date: 03-28-2019 Planned Disposition: Home External Planned Provider: : DCP follow-up note: Patient in agreement with discharge plan. No changes to plan. [facility] DELIVERED OXYGEN, I CALLED THEM ABOUT THE NEBULIZER. WAITING FOR CALL BACK NOW. Case management will follow and assist as needed. Urmila Rosas DCP- Discharge Planning Updated by [email or web address]: Micky Silva on 03/28/19 4:[address] Patient Name: SAMANTHA PAN Encounter No: [id number] : 1960 Primary Insurance: MEDICAID [place] Anticipated DC Date: 03-28-2019 Planned Disposition: Home External Planned Provider: [facility] DCP follow-up note: CM RECEIVED ORDER FOR NEBLUIZER FROM [facility]. CM MET WITH PT IN ROOM TO DISCUSS DISCHARGE NEEDS AND PLANNING. CM DISCUSSED AVAILABILITY OF HOME HEALTH, REHAB SERVICES AND MEDICAL EQUIPMENT. PT WOULD LIKE MEDICAL EQUIPMENT FROM [facility]. PT REPORTS A "WORSHIP BROTHER" TO TRANSPORT HOME AT DISCHARGE. WALK TEST RECEIVED, PT QUALIFIES FOR OXYGEN. CM ASKED FOR WALK TEST ORDER, TESTING RECEIVED, PT QUALIFIES FOR HOME AND PORTABLE OXYGEN, OXYGEN ORDER OBTAINED. CM REQUESTED DR. LEWIS TO DOCUMENT THAT PT HAS TRIED AND FAILED INHALERS TO QUALIFY OF NEBULIZER; THIS IS REQUIRED BY [place] MEDICAID. SHAKILA CALLED [facility], , SPOKE TO NAINA AND PROVIDED REFERRAL INFORMATION. CM FAXED REFERRAL TO [facility], . NAINA ADVISED THEY WILL DELIVER PORTABLE OXYGEN TO HOSPITAL TODAY AND WILL ARRANGE HOME OXYGEN WHEN PT ARRIVES AT HOME AFTER DISCHARGE. DR. LEWIS WILL NEED TO DOCUMENT THAT INHALERS HAVE BEEN TRIED AND FAILED AND THIS NEEDS TO BE PROVIDED TO [facility] TO QUALFY PT FOR NEBULIZER. Micky Silva, CASE MANAGEMENT DCP- Discharge Planning Updated by [id number]: Marielle Gracia on 03/25/19 5:[address] Patient Name: SAMANTHA PAN Admission Status: ER Accout number: [id number] Admission Date: 03-25-2019 : 1960 Admission Diagnosis: Attending: RICCARDO PRIETO Current LOS: 1 Anticipated DC Date: Planned Disposition: Primary Insurance: MED[place]ID [place] Discharge Planning Comments: CM met with patient at bedside after explaining CM role and obtaining verbal consent. Patient lives at home alone where he is independent with his care and plans to return there upon discharge. Patient feels this would be a safe discharge. CM discussed availability / needs of home health and medical equipment. Patient has BiPap with [facility]. Patient states that he wants to continue with [facility] but is wanting stop care with [facility] and physical therapy. SAMEER and declination signed. Patient denies any discharge needs at this time. Patient states he will have his friend drive him home upon discharge. CM will continue to follow and assist as needed with discharge planning / needs. Bolt Sawyer: Marielle Gracia DCPIA - Discharge Planning Initial Assessment Updated by [email or web address]: Marielle Gracia on 03/25/19 6:18 pm * Is the patient Alert and Oriented? Yes * How many steps to enter\\exit or inside your home? * PCP Tono JEONG * [facility] * Preadmission Environment Home Alone * ADLs Independent * Equipment BIPAP * List name and contact numbers for known caregivers / representatives who currently or will assist patient after discharge: SARAHY NAYLOR - [place] - [phone] * Verbal permission to speak to the caregivers and representatives has been obtained from the patient. Yes * Community resources currently utilized Home Health * Please name any agencies selected above. [facility] * Additional services required to return to the preadmission environment? No * Can the patient safely return to the preadmission environment? Yes * Has this patient been hospitalized within the prior 30 days at any hospital? Yes Coverage Notice Reviewer: [id number] Kain Gracia Notice Issued Date-Time: 03/25/2019 13:00 Notice Type: Patient Choice Letter Notice Delivered To: Patient Relationship to Patient: Manager Valuation Name: Delivery Method: HAND - Hand Delivered Cyndy Days: Prior Verbal Notification: Recipient Understood Notice: Yes Recipient Signature: Yes Med Rec Note Co-signed by Attending: Coverage Notice Comment: resume services with [facility] stop services with [facility] Last DP export: 03/28/19 4:43 p Patient Name: SAMANTHA PAN Page 43002 at 1443 All edits/amendments must be made on the electronic document DICTATION DATE: 03/29/19 1442 ARTILLERY OFFICER: GILMA 03/29/19 1442 RPT#: [id number] DC DATE: STATUS: ADM IN [facility] [address] [place] [address] END OF REPORT
--- NOTE | 2019-03-30 11:43 | MORECARE ---
CASE MANAGEMENT DISCHARGE SUMMARY PATIENT: SAMANTHA PAN JR UNIT: [id number] ADM DATE: 03/25/19 AGE: 58 : 56 SEX: M ROOM/BED: D.2865 AUTHOR: ELKIN,DOC PHYSICIAN: REFERRING PHYSICIAN: RICCARDO PRIETO MD DATE OF SERVICE: 03/30/19 Discharge Plan Patient Name: SAMANTHA PAN Facility: [facility]:[place] : 1960 Planned Disposition: Home Anticipated Discharge Date: 03/28/19 Discharge Date: 03/29/2019 Expected LOS: 3 Initial Reviewer: [id number] Initial Review Date: 03/25/2019 Generated: 03/30/19 12:42 pm Comments DCP- Discharge Planning Updated by [id number]: Urmila Rosas on 03/29/19 1:[address] Patient Name: SAMANTHA APN Encounter No: [id number] : 1960 Primary Insurance: MEDICAID [place] Anticipated DC Date: 03-28-2019 Planned Disposition: Home External Planned Provider: : DCP follow-up note: Patient in agreement with discharge plan. No changes to plan. [facility] DELIVERED OXYGEN, I CALLED THEM ABOUT THE NEBULIZER. WAITING FOR CALL BACK NOW. Case management will follow and assist as needed. Urmila Rosas DCP- Discharge Planning Updated by [email or web address]: Micky Silva on 03/28/19 4:[address] Patient Name: SAMANTHA PAN Encounter No: [id number] : 1960 Primary Insurance: MEDICAID [place] Anticipated DC Date: 03-28-2019 Planned Disposition: Home External Planned Provider: [facility] DCP follow-up note: CM RECEIVED ORDER FOR NEBLUIZER FROM [facility]. CM MET WITH PT IN ROOM TO DISCUSS DISCHARGE NEEDS AND PLANNING. CM DISCUSSED AVAILABILITY OF HOME HEALTH, REHAB SERVICES AND MEDICAL EQUIPMENT. PT WOULD LIKE MEDICAL EQUIPMENT FROM [facility]. PT REPORTS A "HOLINESS BROTHER" TO TRANSPORT HOME AT DISCHARGE. WALK TEST RECEIVED, PT QUALIFIES FOR OXYGEN. CM ASKED FOR WALK TEST ORDER, TESTING RECEIVED, PT QUALIFIES FOR HOME AND PORTABLE OXYGEN, OXYGEN ORDER OBTAINED. CM REQUESTED DR. LEWIS TO DOCUMENT THAT PT HAS TRIED AND FAILED INHALERS TO QUALIFY OF NEBULIZER; THIS IS REQUIRED BY [place] MEDICAID. SHAKILA CALLED [facility] [phone], SPOKE TO NAINA AND PROVIDED REFERRAL INFORMATION. CM FAXED REFERRAL TO [facility] [phone]. [facility]INA ADVISED THEY WILL DELIVER PORTABLE OXYGEN TO HOSPITAL TODAY AND WILL ARRANGE HOME OXYGEN WHEN PT ARRIVES AT HOME AFTER DISCHARGE. DR. LEWIS WILL NEED TO DOCUMENT THAT INHALERS HAVE BEEN TRIED AND FAILED AND THIS NEEDS TO BE PROVIDED TO [facility] TO QUALFY PT FOR NEBULIZER. Micky Silva, CASE MANAGEMENT DCP- Discharge Planning Updated by [email or web address]: Marielle Gracia on 03/25/19 5:[address] Patient Name: SAMANTHA PAN Admission Status: ER Accout number: [id number] Admission Date: 03-25-2019 : 1960 Admission Diagnosis: Attending: RICCARDO PRIETO Current LOS: 1 Anticipated DC Date: Planned Disposition: Primary Insurance: MEDICAID [place] Discharge Planning Comments: CM met with patient at bedside after explaining CM role and obtaining verbal consent. Patient lives at home alone where he is independent with his care and plans to return there upon discharge. Patient feels this would be a safe discharge. CM discussed availability / needs of home health and medical equipment. Patient has BiPap with [facility]. Patient states that he wants to continue with [facility] but is wanting stop care with [facility] and physical therapy. SAMEER and declination signed. Patient denies any discharge needs at this time. Patient states he will have his friend drive him home upon discharge. CM will continue to follow and assist as needed with discharge planning / needs. Branch Office Manager: Marielle Gracia DCPIA - Discharge Planning Initial Assessment Updated by [email or web address]: Marielle Garcia on 03/25/19 6:18 pm * Is the patient Alert and Oriented? Yes * How many steps to enter\\exit or inside your home? * PCP Tono JEONG * [facility] * Preadmission Environment Home Alone * ADLs Independent * Equipment BIPAP * List name and contact numbers for known caregivers / representatives who currently or will assist patient after discharge: SARAHY NAYLOR - [place] - [phone] * Verbal permission to speak to the caregivers and representatives has been obtained from the patient. Yes * Community resources currently utilized Home Health * Please name any agencies selected above. [facility] * Additional services required to return to the preadmission environment? No * Can the patient safely return to the preadmission environment? Yes * Has this patient been hospitalized within the prior 30 days at any hospital? Yes Coverage Notice Reviewer: [id number] - Marielle Gracia Notice Issued Date-Time: 03/25/2019 13:00 Notice Type: Patient Choice Letter Notice Delivered To: Patient Relationship to Patient: Vegetable Washing Machine Operator Name: Delivery Method: HAND - Hand Delivered Cyndy Days: Prior Verbal Notification: Recipient Understood Notice: Yes Recipient Signature: Yes Med Rec Note Co-signed by Attending: Coverage Notice Comment: resume services with [facility] stop services with [facility] Last DP export: 03/29/19 1:43 p Patient Name: SAMANTHA PAN Page 95922 at 1143 All edits/amendments must be made on the electronic document DICTATION DATE: 03/30/19 1142 CENTRAL OFFICE TECHNICIAN: GILMA 03/30/19 1142 RPT#: [id number] DC DATE:03/29/19 STATUS: DIS IN [facility] [address] [place] [address] END OF REPORT
[2019-03-30 17:08] LABS: IMMUNOGLOBULIN E 361 IU/mL (6-495)
--- NOTE | 2019-03-31 11:54 | EC ---
PATIENT:SAMANTHA PAN JR DATE OF SERVICE: 03/25/19 SEX: M MEDICAL RECORD: [id number] DATE OF : [birth year] LOCATION:D.M2 D.210 AGE OF PATIENT: 58 ADMISSION DATE: 03/25/19 REFERRING PHYSICIAN: INTERPRETING PHYSICIAN: RAPHAEL ALDRICH MD ECHOCARDIOGRAM REPORT ECHO CHARGES 5 ECHO LIMITED Date: 03/25/19 CLINICAL DIAGNOSIS: CHF RECENT ECHO ECHOCARDIOGRAPHIC MEASUREMENTS (adult normal given) AC root (d.<3.7cm) cm LV Septum d (<1.2 cm> cm Valve Excursion cm LV Septum (systole) cm Left Atria (s.<4.0cm> cm LVPW d(<1.2cm) cm RV (d.<2.3cm) cm LVPW (sytole) cm LV diastole(<5.6CM) cm MV E-F(>70mm/sec) cm LV systole cm LVOT Diameter cm MV exc.(>10mm) cm Est.ejection fraction (50-75%) % DOPPLER: LVIT cm/sec A cm/sec E cm/sec LA cm/sec RVSP 29 mmHg LVOT cm/sec AOP1/2T m/s Asc. Ao cm/sec RVOT cm/sec RA cm/sec PA cm/sec AV Gradient Peak mmHg AV Mean mmHg AV Area cm MV Gradient Peak mmHg MV Mean mmHg MV Area cm COMMENTS: System Support Administrator: Pierce VERDUGO Lead Etl Developer: 1 Dr. Aldrich TAPE# PACS Pericardial Effusion N DATE OF SERVICE: ECHOCARDIOGRAM FINDINGS: 1. Left ventricular chamber size is within normal limits. Left ventricular systolic function is normal. Overall ejection fraction estimated at 50%. 2. Left atrium, right atrium, and right ventricular chamber sizes are within normal limits. 3. Valvular structures have normal structure and motion. ECHOCARDIOGRAM REPORT [id number] SAMANTHA PAN JR 4. Doppler interrogation reveals no significant valvular insufficiency or stenosis and pulmonary systolic pressure is normal at 29 mmHg. 5. No evidence of pericardial effusion or left ventricular thrombus. TRANSINT:[id number] Voice Confirmation ID: [id number] DOCUMENT ID: [id number] RAPHAEL ALDRICH MD at 8673 CC: [id number] DICTATION DATE: 03/26/19 1414 IVF EMBRYOLOGIST: 03/26/19 4777 DIS IN 03/29/19 [facility] [address] [place] [address]
== END 2019-03-29 18:00 | disposition home or self-care (01) | DRG 291 ==
LOC: D.ER 01:30 → D.ICU 04:11 → D.M2 04:11
PROVIDERS: Family Medicine; Internal Medicine Pulmonary Disease; ADMIT Family Medicine; ATTEND Family Medicine
DX: I11.0 Hypertensive heart disease with heart failure (principal); J96.02 Acute respiratory failure with hypercapnia; J96.01 Acute respiratory failure with hypoxia; J44.1 Chronic obstructive pulmonary disease with (acute) exacerbation; Z68.43 Body mass index [BMI] 50.0-59.9, adult; J98.11 Atelectasis; I48.0 Paroxysmal atrial fibrillation; I25.10 Atherosclerotic heart disease of native coronary artery without angina pectoris; I50.33 Acute on chronic diastolic (congestive) heart failure; E78.5 Hyperlipidemia, unspecified; E11.9 Type 2 diabetes mellitus without complications; E66.01 Morbid (severe) obesity due to excess calories; N40.0 Benign prostatic hyperplasia without lower urinary tract symptoms; I27.20 Pulmonary hypertension, unspecified

== ENCOUNTER 2019-09-24 23:33 | Inpatient (IN) | payer MEDICAID ==
[~2019-09-24] VITALS: Ht 190.5 cm; Wt 172.8 kg
--- NOTE | ~2019-09-24 | CN ---
PATIENT NAME:SAMANTHA PAN JR MEDICAL RECORD: [id number] : 56 LOCATION:[id number] ADMIT DATE: 09/25/19 ACCOUNT: [id number] CONSULTING PHYSICIAN: JESUS GA MD REFERRING PHYSICIAN: ZACKERY PIKE MD DATE OF CONSULTATION: 09/29/2019 Otolaryngology Consultation THIS IS A CONSULT FROM: ANASTACIO Sanchez DO, and Jesus Ga MD REASON FOR THE CONSULT: Bleeding from the pharynx. BRIEF HISTORY: The patient is a 59-year-old male. He was apparently came in to the hospital and intubated a day or two ago for respiratory failure. Then, at some point earlier today, started having some bleeding. GI took him for EGD. The esophagus and stomach were okay. The bleeding appeared to be coming from the pharynx. He was taken back to the ICU where I was asked to see him, it was about 1:15 p.m. He is anticoagulated with Lovenox. He weighs roughly 450 pounds. He is intubated on the ventilator. He is completely sedated just came out the GI lab. No bleeding coming from the nose. No tubes in the nose. He has got an ET tube in the mouth. They will move that to the side using a headlight, Yankauer suction to evacuate the blood and clot from the mouth, buccal mucosa all looked good, floor of the mouth good. Anterior tongue, roof of the mouth, all looked good. Teeth all looked okay, as far as any source of bleeding, they look fine. The bleeding was coming from the pharynx. I was able to get the blood clot out of the pharynx and the bleeding was coming from the left, base of the tongue and laceration along the base of the tongue. He had prominent venous lakes on the back of the tongue, not particularly abnormal symmetric on both sides of this laceration, went through some of the venous lakes into the glossopharyngeal arch. His mucosal not very deep, laceration is about a cm and a half or too long. We can see some muscle in there and the bleeding was a venous. There was no arterial bleeding, but there was bleeding there. I cleaned out the rest of the pharynx, looked around the opposite side, further down, followed the ET tube and could not see anything else. Using a large Shawn retractor and a headlight, got a good visualization with him completely relaxed. It took a complete roll of Kerlix, packed into the left base of the tongue between the posterior pharyngeal wall, base of the tongue against the molars, packed on a towel roll with a little bit hanging out over the left cheek, left side the corner of the mouth, that stopped the bleeding. I talked to the nurse about his care, rinsing with some Peridex from time to time. We are going to continue to get H&H every 8 hours because it is possible some bleeding could occur without being very noticeable, watched it for a long time even an hour and a half to later 2:30 to 3:00 in the afternoon. Kerlix was applied. There was no evidence of bleeding. Then, around 6:00 roughly started having some cardiac issues, wide QRS, eventually went to a code situation, some bleeding started. It is hard to tell if the bleeding started because of the disruption of the code or may be started around the same time; however, a stat H&H at that time revealed a hemoglobin that was still 11.8. The Kerlix was still in place. There was obviously a little bit of bleeding, but it is hard to say there was much. So at this time, bleeding does not seem to be a significant problem on his list of problems right now. I could take him to the OR, potentially if it gets stabilized, does not look particularly amenable to cauterization, but I could to try that if the bleeding will not stop, but I think packing as long as he still is going to keep it well controlled because it CONSULT REPORT [id number] SAMANTHA PAN JR is fairly low pressure venous oozing that combined with saliva makes it look like more than it is, but I do not think it is significantly contributing to his current issues. We will watch him closely and treat him based on that. TRANSINT:[id number] Voice Confirmation ID: [id number] DOCUMENT ID: [id number] JESUS GA MD CC: [id number] DICTATION DATE: 09/29/191833 ROTATING EQUIPMENT SPECIALIST: 09/30/[address] [facility] [address] [place] [address]
[~2019-09-24 23:33] MED LIST changes: +ATROVENT 0.02%2.5 ML UPD; +BROVANA15 MCG/2 M INH; +MUCINEX DM ER1 EAC1 PO; +PULMICORT0.5 MG/21 UPD; +SINGULAIR10 MG PO; +TESSALON PERLE100 MG PO
[2019-09-25] VITALS (26 sets, daily range): BP systolic 85–135; BP diastolic 32–97; BMI 47.3
[2019-09-25 00:17] LABS: HEMATOCRIT 47.6 % (42.0-54.0); HEMOGLOBIN 14.7 g/dL (13.5-17.5); MCH 29.2 pg (26.0-34.0); MCHC 30.9 g/dL (31.0-37.0); MCV 94.6 fL (80.0-100.0); MEAN PLATELET VOLUME 10.6 fL (7.4-10.4); PLATELET COUNT 248 10x3/uL (130-400); RBC 5.03 10x6/uL (4.20-6.10); WBC 21.2 10x3/uL (4.8-10.8)
[2019-09-25 00:22] LABS: APTT 25.7 SECONDS (22.8-39.4); INR 1.07 (0.85-1.17); PROTIME 13.8 SECONDS (11.6-15.0)
[2019-09-25 00:27] LABS: CARBON DIOXIDE 32.9 mmol/L (21.0-32.0); CHLORIDE - SERUM 99 mmol/L (98-107); CREATININE - SERUM 1.3 mg/dL (0.6-1.3); POTASSIUM - SERUM 5.8 mmol/L (3.5-5.1); SODIUM 135 mmol/L (136-145); UREA NITROGEN 18 mg/dL (7-18); eGFR NON AFRICAN AMERICAN 60 mL/min (90-120)
[2019-09-25 00:44] LABS: ALBUMIN 3.8 g/dL (3.4-5.0); ALKALINE PHOSPHATASE 122 U/L (30-120); ALT (SGPT) 34 U/L (10-68); BILIRUBIN - TOTAL 0.48 mg/dL (0.2-1.3); CKMB 2.5 U/L (0.0-3.6); CREATINE KINASE 115 UL (21-232); PRO BNP 1305 pg/mL (0-125); PROTEIN - SERUM 8.4 g/dL (6.4-8.2); TROPONIN-I < 0.017 ng/mL (0.000-0.060)
[2019-09-25 00:49] LABS: LYMPHOCYTES 49 % (15-50); NEUTROPHILS 50 % (40-80); PLATELET ESTIMATE NORMAL
[2019-09-25 00:53] LABS: CALC OSMOLALITY 295 mosm/kg (275-300)
[2019-09-25 00:56] LABS: GLUCOSE 539 mg/dL (74-106)
--- NOTE | 2019-09-25 01:12 | NUR ---
D DIMER 2.56 LENARD HARTN INFORMED.
[2019-09-25 07:09] LABS: BASOPHILS 0.2 % (0-2); EOSINOPHILS 0.1 % (0-7); HEMATOCRIT 42.1 % (42.0-54.0); HEMOGLOBIN 12.9 g/dL (13.5-17.5); IMMATURE GRANULOCYTES 0.8 % (0-5); MCH 28.5 pg (26.0-34.0); MCHC 30.6 g/dL (31.0-37.0); MCV 93.1 fL (80.0-100.0); MEAN PLATELET VOLUME 11.1 fL (7.4-10.4); MONOCYTES 4.7 % (2-11); NEUTROPHILS 88.2 % (40-80); PLATELET COUNT 227 10x3/uL (130-400); RBC 4.52 10x6/uL (4.20-6.10); RDW 14.1 % (11.5-14.5); WBC 18.8 10x3/uL (4.8-10.8)
[2019-09-25 07:31] LABS: INR 1.03 (0.85-1.17); PROTIME 13.5 SECONDS (11.6-15.0)
[2019-09-25 07:37] LABS: ALBUMIN 3.5 g/dL (3.4-5.0); ALKALINE PHOSPHATASE 107 U/L (30-120); BILIRUBIN - TOTAL 0.58 mg/dL (0.2-1.3); CARBON DIOXIDE 33.5 mmol/L (21.0-32.0); CHLORIDE - SERUM 99 mmol/L (98-107); CREATINE KINASE 118 UL (21-232); CREATININE - SERUM 1.5 mg/dL (0.6-1.3); MAGNESIUM - SERUM 1.8 mg/dL (1.8-2.4); PHOSPHOROUS 4.3 mg/dL (2.5-4.9); POTASSIUM - SERUM 5.4 mmol/L (3.5-5.1); PRO BNP 1524 pg/mL (0-125); PROTEIN - SERUM 7.4 g/dL (6.4-8.2); SODIUM 135 mmol/L (136-145); TROPONIN-I 0.048 ng/mL (0.000-0.060); eGFR NON AFRICAN AMERICAN 51 mL/min (90-120)
[2019-09-25 07:47] LABS: ALT (SGPT) 133 U/L (10-68); CALC OSMOLALITY 294 mosm/kg (275-300); UREA NITROGEN 26 mg/dL (7-18)
[2019-09-25 07:48] LABS: GLUCOSE 456 mg/dL (74-106)
[2019-09-25 12:45] LABS: CKMB 2.8 U/L (0.0-3.6); CREATINE KINASE 92 UL (21-232); TROPONIN-I 0.034 ng/mL (0.000-0.060)
[2019-09-25 18:56] LABS: CKMB 2.8 U/L (0.0-3.6); TROPONIN-I 0.024 ng/mL (0.000-0.060)
[2019-09-25 18:59] LABS: CREATINE KINASE 485 UL (21-232)
--- NOTE | 2019-09-25 22:16 | NUR ---
1900 REPORT RECEIVED AT BEDSIDE. SEDATED ON VENT, NO SIGNS OF DISTRESS OR DISCOMFORT. WILL CONT. TO MONITOR
--- NOTE | 2019-09-25 22:18 | NUR ---
2100 REPOSITIONED ON BACK. WILL CONT. TO MONITOR
--- NOTE | 2019-09-25 23:12 | NUR ---
no changes at this time
[2019-09-26] VITALS (24 sets, daily range): BP systolic 91–184; BP diastolic 50–119; Ht 190.5 cm; Wt 172.8 kg
--- NOTE | 2019-09-26 03:10 | NUR ---
0300 RESTING COMFORTABLY WITH NO SIGNS OF DISCOMFORT OR DISTRESS. WILL CONT. TO MONITOR
--- NOTE | 2019-09-26 05:34 | NUR ---
REPOSITIONED PT. ONTO THE RIGHT SIDE. NO CHANGES AT THIS TIME
[2019-09-26 05:37] LABS: BASOPHILS 0.1 % (0-2); EOSINOPHILS 0 % (0-7); HEMATOCRIT 39.8 % (42.0-54.0); HEMOGLOBIN 12.7 g/dL (13.5-17.5); IMMATURE GRANULOCYTES 0.3 % (0-5); LYMPHOCYTES 8.2 % (15-50); MCH 28.7 pg (26.0-34.0); MCHC 31.9 g/dL (31.0-37.0); MEAN PLATELET VOLUME 10.5 fL (7.4-10.4); MONOCYTES 4.9 % (2-11); NEUTROPHILS 86.5 % (40-80); PLATELET COUNT 233 10x3/uL (130-400); RBC 4.43 10x6/uL (4.20-6.10); RDW 14.2 % (11.5-14.5); WBC 14.6 10x3/uL (4.8-10.8)
[2019-09-26 05:43] LABS: MCV 89.8 fL (80.0-100.0)
[2019-09-26 06:00] LABS: ALBUMIN 3.3 g/dL (3.4-5.0); BILIRUBIN - TOTAL 0.47 mg/dL (0.2-1.3); CALCIUM 9.1 mg/dL (8.5-10.1); CARBON DIOXIDE 30.9 mmol/L (21.0-32.0); MAGNESIUM - SERUM 1.8 mg/dL (1.8-2.4); PHOSPHOROUS 4.3 mg/dL (2.5-4.9)
[2019-09-26 06:16] LABS: ANION GAP 11.4 mmol/L (8-16); CREATININE - SERUM 1.1 mg/dL (0.6-1.3); POTASSIUM - SERUM 4.3 mmol/L (3.5-5.1)
--- NOTE | 2019-09-26 15:00 | NUR ---
COMPLETE HIBICLENS BATH GIVEN. LINENS CHANGED. COCCYX DEEP TISSUE INJURY NOTED. DEEP PURPLE AT CRACK OF BUTTOCKS. SOCKS REMOVED AND RIGHT HEEL BLISTER THAT IS DRAINING CLEAR SUBSTANCE. 1/2 DOLLAR IN SIZE.
--- NOTE | 2019-09-26 20:32 | NUR ---
PT SON SARAHY CALLED-PASSWORD PROVIDED, UPDATE GIVEN, ALL QUESTIONS ANSWERED.
[2019-09-27] VITALS (24 sets, daily range): BP systolic 112–175; BP diastolic 71–118
--- NOTE | 2019-09-27 02:00 | NUR ---
INFORMED PT'S NURSE OF BP'S
[2019-09-27 05:54] LABS: BASOPHILS 0.1 % (0-2); EOSINOPHILS 0 % (0-7); HEMOGLOBIN 13.6 g/dL (13.5-17.5); IMMATURE GRANULOCYTES 0.6 % (0-5); LYMPHOCYTES 6.5 % (15-50); MCH 28.8 pg (26.0-34.0); MCHC 31.6 g/dL (31.0-37.0); MCV 91.1 fL (80.0-100.0); MEAN PLATELET VOLUME 10.8 fL (7.4-10.4); NEUTROPHILS 85.8 % (40-80); RBC 4.72 10x6/uL (4.20-6.10); RDW 14.5 % (11.5-14.5); WBC 17.5 10x3/uL (4.8-10.8)
[2019-09-27 06:07] LABS: PLATELET COUNT 281 10x3/uL (130-400)
[2019-09-27 06:13] LABS: ALBUMIN 3.1 g/dL (3.4-5.0); BILIRUBIN - TOTAL 0.42 mg/dL (0.2-1.3); CALCIUM 8.4 mg/dL (8.5-10.1); CARBON DIOXIDE 26.5 mmol/L (21.0-32.0); MAGNESIUM - SERUM 1.9 mg/dL (1.8-2.4); POTASSIUM - SERUM 4.5 mmol/L (3.5-5.1)
[2019-09-27 06:14] LABS: PHOSPHOROUS 7.2 mg/dL (2.5-4.9)
[2019-09-27 06:15] LABS: CREATININE - SERUM 2.8 mg/dL (0.6-1.3)
--- NOTE | 2019-09-27 12:36 | NUR ---
0700-WOUND TO R HEEL BLEEDING ON TO LINNENS. CLEANED WOUND AND DRESSED HEEL.
[2019-09-28] VITALS (23 sets, daily range): BP systolic 106–182; BP diastolic 57–109
[2019-09-28 05:14] LABS: BASOPHILS 0.1 % (0-2); EOSINOPHILS 0.1 % (0-7); HEMATOCRIT 41.6 % (42.0-54.0); HEMOGLOBIN 13.4 g/dL (13.5-17.5); IMMATURE GRANULOCYTES 0.8 % (0-5); LYMPHOCYTES 7.7 % (15-50); MCH 28.8 pg (26.0-34.0); MCHC 32.2 g/dL (31.0-37.0); MCV 89.3 fL (80.0-100.0); MEAN PLATELET VOLUME 10.8 fL (7.4-10.4); NEUTROPHILS 84.3 % (40-80); PLATELET COUNT 284 10x3/uL (130-400); RBC 4.66 10x6/uL (4.20-6.10); RDW 14.8 % (11.5-14.5); WBC 15.6 10x3/uL (4.8-10.8)
[2019-09-28 05:30] LABS: ALBUMIN 2.8 g/dL (3.4-5.0); ANION GAP 15.9 mmol/L (8-16); BILIRUBIN - TOTAL 0.48 mg/dL (0.2-1.3); CALCIUM 8.2 mg/dL (8.5-10.1); CARBON DIOXIDE 26.5 mmol/L (21.0-32.0); CREATININE - SERUM 3.2 mg/dL (0.6-1.3); MAGNESIUM - SERUM 1.9 mg/dL (1.8-2.4); PHOSPHOROUS 7.3 mg/dL (2.5-4.9); POTASSIUM - SERUM 4.4 mmol/L (3.5-5.1); PROTEIN - SERUM 6.7 g/dL (6.4-8.2); VANCOMYCIN - TROUGH 41.1 ug/mL (10.0-20.0)
--- NOTE | 2019-09-28 08:11 | NUR ---
CPAP TRIALS STARTED. SEDATION OFF.
--- NOTE | 2019-09-28 11:05 | NUR ---
hr 140, bp 144/124, rr 40, cpap trials stopped and sedation returned.
--- NOTE | 2019-09-28 16:33 | NUR ---
1000- WND TO R HEEL DSNG SATURATED. WND CLEANED AND CLEAN DSNG APPLIED.
[2019-09-29] VITALS (31 sets, daily range): BP systolic 59–156; BP diastolic 00–97
[2019-09-29 05:44] LABS: BASOPHILS 0.1 % (0-2); EOSINOPHILS 0.1 % (0-7); HEMOGLOBIN 13.3 g/dL (13.5-17.5); IMMATURE GRANULOCYTES 2.2 % (0-5); LYMPHOCYTES 8.4 % (15-50); MCH 28.6 pg (26.0-34.0); MCHC 31.7 g/dL (31.0-37.0); MCV 90.3 fL (80.0-100.0); MEAN PLATELET VOLUME 11.1 fL (7.4-10.4); MONOCYTES 8.8 % (2-11); NEUTROPHILS 80.4 % (40-80); PLATELET COUNT 284 10x3/uL (130-400); RBC 4.65 10x6/uL (4.20-6.10); WBC 14.5 10x3/uL (4.8-10.8)
[2019-09-29 06:16] LABS: ALBUMIN 2.8 g/dL (3.4-5.0); ANION GAP 13.4 mmol/L (8-16); BILIRUBIN - TOTAL 0.46 mg/dL (0.2-1.3); CALCIUM 8.4 mg/dL (8.5-10.1); CARBON DIOXIDE 27.7 mmol/L (21.0-32.0); MAGNESIUM - SERUM 2.2 mg/dL (1.8-2.4); POTASSIUM - SERUM 4.1 mmol/L (3.5-5.1); PROTEIN - SERUM 7.1 g/dL (6.4-8.2)
[2019-09-29 06:17] LABS: CREATININE - SERUM 2.2 mg/dL (0.6-1.3); PHOSPHOROUS 4.9 mg/dL (2.5-4.9)
--- NOTE | 2019-09-29 09:47 | NUR ---
Nutrition follow-up: Pt intubated, sedated with propofol @ 32.7 ml/hr Pulmocare @ 30 ml/hr via OGT with goal rate of 40 ml/hr Labs revieed Wt: 375# RDN following.
--- NOTE | 2019-09-29 09:50 | NUR ---
PATIENT COUGHING AGAINST VENT AND CHEWING ON TUBE PER RT. RT PLACED BITE BLOCK AND SUCTIONED MOUTH. WILL CONTINUE TO MONITOR.
--- NOTE | 2019-09-29 10:30 | NUR ---
PATIENT MOUTH BLEEDING CONTINUOUSLY BRIGHT RED BLOOD NOTED. TRIED TO CLEAR MOUTH TO SEE WHERE BLOOD WAS COMING FROM. UNABLE TO SEE INJURY TO TONGUE. DR. ESPINOZA CALLED. NEW ORDER TO CONSULT DR. PRINGLE.
--- NOTE | 2019-09-29 10:40 | NUR ---
DR. PRINGLE NOTIFIED AND ORDER RECEIVED TO CONSULT DR. NÚÑEZ. DR. NÚÑEZ PAGED.
--- NOTE | 2019-09-29 10:44 | NUR ---
DR. NÚÑEZ NOTIFIED OF CONSULT AND SITUATION. WILL BE HERE TO SEE PATIENT.
--- NOTE | 2019-09-29 10:50 | NUR ---
BLOOD OBTAINED FROM PICC LINE.
--- NOTE | 2019-09-29 11:03 | NUR ---
DR. NÚÑEZ HERE IN TO SEE PATIENT. NEW ORDERS RECEIVED.
--- NOTE | 2019-09-29 11:45 | NUR ---
PATIENT CARE HANDED OVER TO SUKH ZARCO.
[2019-09-29 12:29] LABS: HEMATOCRIT 42.6 % (42.0-54.0); HEMOGLOBIN 13.4 g/dL (13.5-17.5)
--- NOTE | 2019-09-29 13:02 | NUR ---
DR GA AT BEDSIDE. SUCTIONED OF EXCESS BLOODY SECRETIONS, CLOTS, AND PACKED WITH KERLEX GAUZE,
--- NOTE | 2019-09-29 13:46 | NUR ---
PC FROM [facility], UNABLE TO GIVE SECURITY CODE, OR DEMOGRAPHIC INFO RE PATIENT, WILL CALL BACK WHEN ABLE TO OBTAIN CODE OR MORE INFORMATION
--- NOTE | 2019-09-29 16:00 | NUR ---
CONTINUES TO HAVE BLEEDING FROM MOUTH, PACKING BEGINNING TO BECOME SATURATED, HAS ALSO HAD CHRISTINA DIARRHEA STOOL, SKIN CARE AND LINEN CHANGE WITH PERSONNEL RACHEL Ware WITH RT AT BEDSIDE, REPOSITIONED UP AND TO BACK
--- NOTE | 2019-09-29 17:38 | NUR ---
SBP IN THE 70'S, CARDIZEM OFF, NEW ORDER FOR LEVOPHED GIVEN
--- NOTE | 2019-09-29 17:50 | NUR ---
RHYTHMN CHANGE ON MONITOR, JESUS 56, EKG COMPLETED PER ORDER
--- NOTE | 2019-09-29 17:55 | NUR ---
PC FROM [facility], STATUS UPDATED, WHILE IN CONVERSATION, AT 1800, PATIENT IN PEA, CODE CALLED, ASKED MR NAYLOR TO COME IN
[2019-09-29 18:17] LABS: HEMATOCRIT 39.2 % (42.0-54.0); HEMOGLOBIN 11.8 g/dL (13.5-17.5)
--- NOTE | 2019-09-29 18:50 | NUR ---
DR GA AT BEDSIDE, OLD KERLIX PACKING REMOVED AND NEW PACKING PLACED IN ORAL CAVITY
[2019-09-29 19:05] LABS: CKMB 4.5 U/L (0.0-3.6); TROPONIN-I 0.039 ng/mL (0.000-0.060)
[2019-09-29 19:06] LABS: CREATINE KINASE 2852 UL (21-232)
[2019-09-29 19:36] LABS: POTASSIUM - SERUM 6.2 mmol/L (3.5-5.1)
--- NOTE | 2019-09-29 21:25 | NUR ---
PT WITH POOR COLORING, NO UNDERLYING RHYTHM SHOWN ON CM, CODE BLUE INITIATED AND CPR STARTED. 2125 EPI GIVEN IV. 2127 ER MD IN ROOM, NO UNDERLYING RHYTHM, CPR CONTINUED. PLEASE SEE CODE BLUE SHEET FOR FURTHER DETAILS. CINDY LIMA AT BEDSIDE. ORDERS RECIEVED FOR TREATING CRITICAL LAB VALUES. PT IS A [employer]AHOV[employer] WITNESS, REFUSES ALL BLOOD PRODUCTS. 2300 POA AT BEDSIDE, VERIFIED BY PHOTO ID WITH CINDY LIMA WITNESS. 2330 ORDER FOR A-LINE PLACEMENT RECIEVED AND ANESTHESIA CALLED. 0030 ANESTHESIA AT BEDSIDE, A-LINE PLACED. A-LINE ZEROED WITH GOOD WAVE FORM. A-LINE IN LEFT BRACHIAL ARTERY. NO RESPONSE FROM PATIENT.
[2019-09-29 22:14] LABS: APTT 60.8 SECONDS (22.8-39.4); HEMATOCRIT 24.3 % (42.0-54.0); HEMOGLOBIN 7.2 g/dL (13.5-17.5); INR 4.39 (0.85-1.17); MCH 28.7 pg (26.0-34.0); MCHC 29.6 g/dL (31.0-37.0); MCV 96.8 fL (80.0-100.0); MEAN PLATELET VOLUME 10.4 fL (7.4-10.4); PLATELET COUNT 216 10x3/uL (130-400); PROTIME 41.1 SECONDS (11.6-15.0); RBC 2.51 10x6/uL (4.20-6.10); RDW 15.1 % (11.5-14.5); WBC 46.7 10x3/uL (4.8-10.8)
[2019-09-29 22:20] LABS: EOSINOPHILS 1 % (0-7); LYMPHOCYTES 19 % (15-50); NEUTROPHILS 69 % (40-80); PLATELET ESTIMATE NORMAL
[2019-09-29 22:25] LABS: BILIRUBIN - TOTAL 1.44 mg/dL (0.2-1.3); POTASSIUM - SERUM 5.8 mmol/L (3.5-5.1)
[2019-09-29 23:02] LABS: ANION GAP 22.2 mmol/L (8-16); CARBON DIOXIDE 18.6 mmol/L (21.0-32.0)
[2019-09-29 23:03] LABS: ALBUMIN 1.1 g/dL (3.4-5.0); CALCIUM 5.2 mg/dL (8.5-10.1); PROTEIN - SERUM 3.5 g/dL (6.4-8.2)
[2019-09-30] VITALS (40 sets, daily range): BP systolic 29–94; BP diastolic 23–76
--- NOTE | 2019-09-30 01:25 | NUR ---
SPOKE WITH CINDY LIMA, GAVE UPDATE. SBP IN 40'S. PRESSORS ALL AT MAX LIMITS. ORDERS FOR ABG WITH ELECTROLYTES RECIEVED, WILL CALL BACK WITH RESULTS.
[2019-09-30 01:45] LABS: CKMB 9.2 U/L (0.0-3.6)
[2019-09-30 01:46] LABS: CREATINE KINASE 3019 UL (21-232)
[2019-09-30 01:47] LABS: TROPONIN-I 2.038 ng/mL (0.000-0.060)
[2019-09-30 06:20] LABS: HEMATOCRIT 28.9 % (42.0-54.0); HEMOGLOBIN 8.3 g/dL (13.5-17.5); MCHC 28.7 g/dL (31.0-37.0); MEAN PLATELET VOLUME 11.2 fL (7.4-10.4); PLATELET COUNT 159 10x3/uL (130-400); RBC 2.86 10x6/uL (4.20-6.10); RDW 15.4 % (11.5-14.5)
[2019-09-30 06:21] LABS: WBC 51.6 10x3/uL (4.8-10.8)
--- NOTE | 2019-09-30 06:22 | NUR ---
CRITICAL LAB RECIEVED, PAGED BINDERY MACHINE TENDER
[2019-09-30 06:26] LABS: ALKALINE PHOSPHATASE 280 U/L (30-120); BILIRUBIN - TOTAL 1.92 mg/dL (0.2-1.3); CHLORIDE - SERUM 99 mmol/L (98-107); CKMB 70.1 U/L (0.0-3.6); SODIUM 141 mmol/L (136-145)
--- NOTE | 2019-09-30 06:30 | NUR ---
CINDY INDUSTRIAL REFRIGERATION MECHANIC CALLED BACK, NOTIFIED OF CRITICAL WBC. ORDERS IF K+ >7 GIVE 10 UNITS REGULAR INSULIN IVP, 25ML D50 IVP.
--- NOTE | 2019-09-30 07:37 | NUR ---
LYING IN BED ON VENT AT THIS TIME. NOT RESPONSIVE. ONLY ABLE TO DOPPLER FEMORAL PULSE. PHYSICIANS AWARE OF THIS.
[2019-09-30 07:55] LABS: ALBUMIN 1.6 g/dL (3.4-5.0); CALC OSMOLALITY 314 mosm/kg (275-300); CALCIUM 7.6 mg/dL (8.5-10.1); CARBON DIOXIDE 12.4 mmol/L (21.0-32.0); CREATINE KINASE 5107 UL (21-232); CREATININE - SERUM 5.1 mg/dL (0.6-1.3); GLUCOSE 358 mg/dL (74-106); MAGNESIUM - SERUM 3.2 mg/dL (1.8-2.4); PROTEIN - SERUM 4.8 g/dL (6.4-8.2); TROPONIN-I 12.313 ng/mL (0.000-0.060); UREA NITROGEN 69 mg/dL (7-18); eGFR NON AFRICAN AMERICAN 12 mL/min (90-120)
--- NOTE | 2019-09-30 07:56 | NUR ---
DR KINGSTON PAGED REGARDING ABG RESULTS INCLUDING K RESULTS.
[2019-09-30 07:57] LABS: ALT (SGPT) 18648 U/L (10-68); PHOSPHOROUS 21.6 mg/dL (2.5-4.9); POTASSIUM - SERUM 8.2 mmol/L (3.5-5.1)
--- NOTE | 2019-09-30 07:57 | NUR ---
PER LAB, PTS PHOS IS 21.6 AND K IS 8.2. CALLING PHYSICIANS.
--- NOTE | 2019-09-30 08:05 | NUR ---
PER DR KINGSTON, CONSULT NEPHROLOGY AND ADMIN [address] COATS PAGED AT THIS TIME.
--- NOTE | 2019-09-30 08:43 | NUR ---
DR COATS HERE TO SEE PT.
--- NOTE | 2019-09-30 08:53 | NUR ---
DR COATS HAS SPOKE WITH PTS POA. UPDATES PROVIDED. POA HAS DETERMINED DNR STATUS.
--- NOTE | 2019-09-30 10:36 | NUR ---
DR ESPINOZA AT BEDSIDE. PT STILL HAS FEMORAL PULSE PER DOPPLER. NO NEW ORDERS RECIEVED.
--- NOTE | 2019-09-30 10:52 | NUR ---
NO DETECTABLE PULSE FROM DOPPLER. DR ESPINOZA AT BEDSIDE TO PRONOUNCE.
--- NOTE | 2019-09-30 11:08 | NUR ---
NOTIFIED PTS POA OF PTS PASSING. POA, SARAHY NAYLOR, STATED TO USE [facility] BUT HE MIGHT CHANGE THAT. ALSO STATED HE WOULD BE BY TO LIQUOR TESTER PTS BELONGINGS.
--- NOTE | 2019-09-30 11:41 | NUR ---
CALLED [facility], SPOKE WITH ROSITA RASHID WHO GAVE REFERENCE NUMBER OF [phone]. STATED PT DOES NOT MEET CRITERIA FOR DONATION BECAUSE OF SEPSIS.
[2019-09-30 11:50] LABS: LYMPHOCYTES 28 % (15-50); MONOCYTES 15 % (2-11); NEUTROPHILS 38 % (40-80); PLATELET ESTIMATE NORMAL
[2019-09-30 11:51] LABS: ROULEAUX OCC
--- NOTE | 2019-09-30 11:57 | NUR ---
SARAHY DANIEL, HAS PICKED PT PTS CLOTHES ([employer]), CELLPHONE, AND WALLET.
--- NOTE | 2019-09-30 11:58 | NUR ---
CALLED [facility], SPOKE WITH DIEUDONNE GARLAND, STATED WILL CALL FOR ETA.
--- NOTE | 2019-09-30 12:28 | NUR ---
POSTMORTEM CARE PROVIDED. RT HAND PIV DCD, A LINE DCD, RIOS DCD. TOTAL LINEN CHANGE.
--- NOTE | 2019-09-30 12:53 | NUR ---
BODY PICKED UP BY [facility] RESPRESENTATIVE. PAPERWORK SIGNED AND IS IN CHART.
== END 2019-09-30 12:54 | DRG 870 ==
LOC: D.ER 23:33 → D.ICU 09-25 01:58
PROVIDERS: Emergency Medicine; Family Medicine; Internal Medicine Pulmonary Disease; Otolaryngology; ADMIT Family Medicine Adult Medicine; ATTEND Family Medicine Adult Medicine
PROC: 5A1955Z Respiratory Ventilation, Greater than 96 Consecutive Hours (ICD-10-PCS; principal; 2019-09-25)
PROC: 0BH17EZ Insertion of Endotracheal Airway into Trachea, Via Natural or Artificial Opening (ICD-10-PCS; 2019-09-25)
PROC: 05HY33Z Insertion of Infusion Device into Upper Vein, Percutaneous Approach (ICD-10-PCS; 2019-09-25)
PROC: 0DJ08ZZ Inspection of Upper Intestinal Tract, Via Natural or Artificial Opening Endoscopic (ICD-10-PCS; 2019-09-29)
DX: A41.9 Sepsis, unspecified organism (principal); J96.21 Acute and chronic respiratory failure with hypoxia; I50.33 Acute on chronic diastolic (congestive) heart failure; N17.0 Acute kidney failure with tubular necrosis; R65.21 Severe sepsis with septic shock; Z68.44 Body mass index [BMI] 60.0-69.9, adult; J44.1 Chronic obstructive pulmonary disease with (acute) exacerbation; E87.2 Acidosis; I13.0 Hypertensive heart and chronic kidney disease with heart failure and stage 1 through stage 4 chronic kidney disease, or unspecified chronic kidney disease; Z66 Do not resuscitate; E78.5 Hyperlipidemia, unspecified; G47.33 Obstructive sleep apnea (adult) (pediatric); E87.5 Hyperkalemia; E11.40 Type 2 diabetes mellitus with diabetic neuropathy, unspecified; F41.8 Other specified anxiety disorders; N40.0 Benign prostatic hyperplasia without lower urinary tract symptoms; M19.90 Unspecified osteoarthritis, unspecified site; K21.9 Gastro-esophageal reflux disease without esophagitis; I25.10 Atherosclerotic heart disease of native coronary artery without angina pectoris; I48.91 Unspecified atrial fibrillation; E11.22 Type 2 diabetes mellitus with diabetic chronic kidney disease; N18.9 Chronic kidney disease, unspecified; S01.512A Laceration without foreign body of oral cavity, initial encounter